=== PATIENT | female | born 1970 | race Caucasian/White ===

== ENCOUNTER 2018-01-12 12:38 | Emergency (ER) | payer OTHER, SELFPAY ==
[2018-01-12 12:40] VITALS: BP 144/99; PULSE 114; RESP 18; TEMP 36.8; O2SAT 97; BMI 27.1
--- NOTE | 2018-01-12 13:05 | RAD_ITS ---
STUDY: X-RAY CHEST REASON FOR EXAM: Female, 47 years old. Cough. TECHNIQUE: Frontal and lateral views of the chest. COMPARISON: None. FINDINGS: The lungs are clear and expanded. There is no demonstrated pleural abnormality. Normal size heart. Normal mediastinum and amita. Normal visualized pulmonary arteries. Normal visualized aortic arch and descending thoracic aorta. Normal visualized thoracic spine. Normal visualized ribs, clavicles, and shoulders. There is no demonstrated abnormality of the visualized soft tissue structures of the upper abdomen. RAD/Chest PA and Lateral IMPRESSION: No significant abnormality. Electronically Signed: Ryan Ybarra MD at 13:52 EST , Service support ,
--- NOTE | 2018-01-12 15:27 | ED.DCSUM_ITS ---
- ER Visit Summary Date of Service: 01/12/18 Chief Complaint: Cough History of Present Illness: The patient is a 47 F who presents with a cough. Initially she began with a fever congestion rhinorrhea. She has had no fever for a week. She states her cold then moved into her chest. She was initially seen in urgent care and treated with Tessalon prednisone and Tylenol. She completed these. She did not improve complains of persistent cough so was recently started on antibiotics. She denies fevers nausea vomiting diarrhea chest pain. She is not short of breath. Her primary care physician had told her that if she was not better to go to the ER to get a diagnosis. Physical Examination: Afebrile heart rate 114 vitals otherwise unremarkable respiratory rate is 18 and pulse ox is 97% on room air Patient is in no distress Airway is patent Heart is regular rhythm tachycardia Lungs are actually clear I do not appreciate rales or wheezing. Test Results: Chest x-ray shows no significant abnormality. Emergency Department Course and Treatment: Patient is clinically well- appearing. 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 No chest pain. She has had no fever for a week and her congestion and rhinorrhea are also improving. She does have a history of asthma. We will place her on a prednisone taper. She was instructed on specific signs and symptoms to monitor for, conditions under which return to the emergency department. All questions answered bedside. Patient discharged. Treatment Plan: [] Disposition: Discharge Impression: Bronchitis This note was generated with [employer] dictation software. It may contain incorrect words, spelling, and punctuation that were not noted in review of the chart prior to signing ED Disposition - Plan for ED Patient: Chief Complaint: Cough Referrals: Anupama Bates MD [Primary Care Provider] -
--- NOTE | 2018-01-12 15:27 | ED.DEP ---
ED Disposition - Plan for ED Patient: Chief Complaint: Cough Instructions: ED Bronchitis Asthmatic Prescriptions: Prednisone 10 mg PO UD #33 tab Referrals: Anupama Bates MD [Primary Care Provider] -
[2018-01-12 15:42] VITALS: BP 121/74; PULSE 82; RESP 20; TEMP 36.4; O2SAT 97
== END 2018-01-12 15:42 | disposition home or self-care (01) ==
LOC: ED 13:14
PROVIDERS: Emergency Provider Emergency Medicine; Family Provider Internal Medicine; PCP Internal Medicine
DX: J40 Bronchitis, not specified as acute or chronic (principal); G40.909 Epilepsy, unspecified, not intractable, without status epilepticus; Z79.899 Other long term (current) drug therapy
CPT/HCPCS: 71046; 99282

== ENCOUNTER → 2019-09-03 16:39 | Outpatient (CLI) | payer OTHER, SELFPAY | PROVIDERS: Family Provider Internal Medicine; PCP Internal Medicine; Referring Provider Nurse Practitioner Primary Care; Visit Provider Nurse Practitioner Primary Care | DX: R07.9 Chest pain, unspecified (principal) | CPT/HCPCS: 84484 ==

== ENCOUNTER → 2020-06-09 14:29 | Outpatient (CLI) | payer OTHER, SELFPAY ==
[2020-06-09 14:29] VITALS: BMI 26.6
--- NOTE | 2020-06-09 14:30 | RAD_ITS ---
STUDY: X-RAY - LEFT SHOULDER REASON FOR EXAM: Increasing left shoulder pain, no specific injury. TECHNIQUE: 4 view(s) of the shoulder. COMPARISON: None. FINDINGS: Normal glenohumeral articulation. Normal acromioclavicular joint. Normal acromion. Normal humeral head and visualized proximal humerus. The soft tissue structures are unremarkable. Normal visualized pulmonary apex. RAD/Shoulder min 2 Views IMPRESSION: Normal x-ray examination of the left shoulder. Electronically Signed: Herber Mccallum MD at 15:30 EDT Tel , Service support ,
== END ==
PROVIDERS: PCP Internal Medicine; Referring Provider Orthopaedic Surgery; Visit Provider Orthopaedic Surgery
DX: M25.512 Pain in left shoulder (principal)
CPT/HCPCS: 73030

== ENCOUNTER 2020-06-15 07:54 | Outpatient (RCR) | payer OTHER, SELFPAY ==
[2020-06-09 14:29] VITALS: BMI 26.6
--- NOTE | 2020-06-15 08:55 | HP.PTEVAL_ITS ---
Patient's Visit Information DEBBIE MCALLISTER is a 49 year old F referred to Physical Therapy by Dr. Aissatou Rodríguez DO with a diagnosis of LEFT SHOULDER IMPINGEMENT. Date of Evaluation: 06/15/20 Physical Therapist: Jono Mancini, PT, Cert MDT, OCS - Visit Plan Frequency: 1 VISIT Plan: PT EVALUATION - Subjective This 49 y/o female presents to physical therapy with left shoulder impingement. Patient has had left shoulder many years. Last July last year injuried lifting. In [facility] ,noticed more pain unable to see MD due to COVID. Patient seen DR dumont help shoulder pain. Patient noticed decrease strength with function and activity. Patient intilally had difficulty sleep but abld able to sleep on left side . Patient currently has pain left shoulder bicep region. Patient wants HEP only. C/O some parathesia/tingling. Patient symptoms affects ADLS ,housework tasks and function. Patient symptoms affects QOL. SOCIAL: single. 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 PALAPTION: unremarkble. NEURO: intact. MMT: RTC 4/5 ,DELTOID 4-/5,SCAPULAR 4-/5. AROM: shoulder flexion 160m,abd 170,ER 90 degrees - Special Tests R Shoulder Drop Sign - IS Test: Negative R Shoulder Empty Can - SS: Negative L Shoulder Supine Impingement Test - RC Tear: Negative L Shoulder Lift Off Test - Subscapular Tear: Negative L Shoulder Empty Can - SS: Negative L Shoulder Neer - Impingement: Positive L Shoulder Coats Edson - Impingement: Positive - Goals Goal 1:: Patient to be provided with HEP Goal Time Frame: 1VISIT - Rehabilitation Potential Physical Therapy Diagnosis: This 49 y/o female prenset with left shoulder impingement with condition resolving with need of strengthening program due to mild pain . Rehabilitation Potential: Good - Anticipated Interventions Patient/Client Instruction: Educate patient on: Condition, Plan of Care For the Purpose of:: To decrease pain, To increase ROM, To increase tolerance to activity/condition/position, To improve performance and independence with ADL's, To improve ability of physical actions for home/community/work/leisure, To improve health of tissue, To decrease soft tissue restriction, To increase flexibility/ROM Thank you for the opportunity to evaluate your patient. For Medicare and Medicare HMO plans, please review the plan of care and approve it. It will need to be FAXED BACK to us at [phone] for Medicare purposes. For Medicare only, by signing this I certify the plan of care. Please let me know if there are questions or concerns regarding this plan of care. Physician Signature: Date:
== END 2020-06-15 19:00 | disposition home or self-care (01) ==
LOC: PT 07:54
PROVIDERS: PCP Internal Medicine; Referring Provider Orthopaedic Surgery; Visit Provider Orthopaedic Surgery
DX: M75.42 Impingement syndrome of left shoulder (principal)
CPT/HCPCS: 97110; 97162

== ENCOUNTER 2021-12-17 13:51 | Emergency (ER) | payer BC, SELFPAY ==
[2021-12-17 13:52] VITALS: BP 150/98; PULSE 80; RESP 14; TEMP 37; O2SAT 100; BMI 26.9
[2021-12-17] MEDS: Ketorolac 15 MG/ML Vial IM (16:48)
[2021-12-17 16:57] VITALS: PULSE 84; RESP 17; O2SAT 100
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
== END 2021-12-17 17:06 | disposition home or self-care (01) ==
PROVIDERS: Emergency Provider Student in an Organized Health Care Education/Training Program; PCP Internal Medicine; Visit Provider Student in an Organized Health Care Education/Training Program
DX: S16.1XXA Strain of muscle, fascia and tendon at neck level, initial encounter (principal); G40.909 Epilepsy, unspecified, not intractable, without status epilepticus; S29.012A Strain of muscle and tendon of back wall of thorax, initial encounter; V89.2XXA Person injured in unspecified motor-vehicle accident, traffic, initial encounter; Y93.9 Activity, unspecified; Y92.9 Unspecified place or not applicable; J45.909 Unspecified asthma, uncomplicated; Z79.899 Other long term (current) drug therapy
CPT/HCPCS: 96372; 99282

== ENCOUNTER 2022-11-27 00:48 | Emergency (ER) | payer BC, SELFPAY ==
[2022-11-27 00:50] VITALS: BP 161/87; PULSE 100; RESP 20; TEMP 36.6; O2SAT 98; BMI 29.1
--- NOTE | 2022-11-27 01:09 | EX.ED.DYSGE1 ---
HPI History of Present Illness Chief Complaint: General Illness Detail of Chief Complaint: COVID-19 Informant: patient Narrative Narrative: Patient present secondary to COVID-19. She was exposed to COVID over the holidays. She tested herself tonight and was positive. Because she has an underlying history of asthma she had been advised by her PCP that if she ever test positive she needs to present to the emergency room immediately. Patient reports very mild cough. She does not feel as if she is wheezing. [facility] Medical History Asthma Bronchitis Seizure disorder Home Medications carbamazepine 200 mg tablet 300 mg PO BIDCM 06/22/16 [History Last Taken Unknown] cetirizine 10 mg tablet 10 mg PO DAILY 06/22/16 [History Last Taken Unknown] cholecalciferol (vitamin D3) 25 mcg (1,000 unit) tablet 2,000 unit PO DAILY 06/22/16 [History Last Taken Unknown] mometasone-formoterol HFA 200 mcg-5 mcg/actuation aerosol inhaler 13 gm IH BID 06/22/16 [History Last Taken Unknown] zonisamide 100 mg capsule 100 mg PO QHS 01/12/18 [History Last Taken Unknown] zonisamide 50 mg capsule 50 mg PO DAILY 01/12/18 [History Last Taken Unknown] montelukast 10 mg tablet (Singulair) 10 mg PO QHS 12/17/21 [History Last Taken Unknown] naproxen 500 mg tablet (Naprosyn) 500 mg PO BID PRN pain #20 tabs 12/17/21 [Rx Last Taken Unknown] tizanidine 4 mg capsule (Zanaflex) 4 mg PO Q8H PRN muscle spasticity #20 caps 12/17/21 [Rx Last Taken Unknown] Allergy/AdvReac Type Severity Reaction Status Date / Time amoxicillin Allergy Hives Verified 11/27/22 00:50 oxcarbazepine Allergy Other Verified 11/27/22 00:50 [From Trileptal] shellfish derived Allergy Anaphylaxis Verified 11/27/22 00:50 latex AdvReac Rash Verified 11/27/22 00:50 Family History Other Cancer Hypertension Rheumatoid arthritis Surgical History history of left biceps vein surgery History of sinus surgery Social History Smoking Status: Never smoker ROS ROS ED Constitutional Constitutional ED: Denies chills or fever(s) Eyes Eyes: Denies change in vision or discharge from eye(s) ENT ENT ED: Denies discharge from eye(s), rhinorrhea or sore throat Cardiovascular Cardiovascular: Denies chest pain or palpitations Respiratory/Chest Respiratory/Chest: Reports cough; Denies dyspnea Gastrointestinal Gastrointestinal: Denies abdominal pain, diarrhea, nausea or vomiting Genitourinary Genitourinary ED: Denies dysuria Musculoskeletal Musculoskeletal: Denies back pain or extremity pain Integumentary Denies Abrasions or rash Neurologic Neurologic: Denies headache(s) or weakness Psychiatric Psychiatric: Reports anxiety; Denies depression Allergic/Immunologic Allergic/Immunologic ED: Denies lip swelling or urticaria EXAM Physical Exam Const Vital Signs: 11/27/22 00:50 11/27/22 00:50 Temperature 98 F Temperature Source Temporal Pulse Rate 100 Respiratory Rate 20 H Respiratory Effort Normal Respiratory Pattern Normal Blood Pressure 161/87 H Blood Pressure Mean 111 Pulse Ox 98 Oxygen Delivery Method Room Air Positive well nourished and well developed General Appearance ED: well developed HEENT Reports normocephalic and head/scalp atraumatic Eyes PERRL and EOMs intact bilaterally Neck supple Chest Wall inspection of chest normal and palpation of chest normal Resp normal respiratory effort and clear to auscultation bilaterally Cardio regular rate and regular rhythm GI normal to inspection, nondistended, normoactive bowel sounds Palpation: soft Extremity normal to inspection Neuro oriented x3 and no sensory deficits noted Sensorium / Orientation: alert Motor Exam: strength 5/5 throughout Psych mental status grossly normal Skin no rashes or lesions noted MDM MDM MDM Narrative Medical decision making narrative: Patient's vital signs are unremarkable with a pulse ox of 98%. Lung sounds are clear. Further work-up and testing is not needed at this time. Patient states that she is on Tegretol and was told by her neurologist that she cannot take Paxlovid. I recommended she contact her PCP in the morning to see if they can arrange antibody infusion as she is quite concerned about her asthma getting worse. I advised her to get a pulse oximeter and monitor her oxygen levels. Return instructions are given. Discharge Plan Triage Chief Complaint: General Illness ED Provider: Trina Varner Dx/Rx/DC Orders Clinical Impression: COVID-19 Instructions: Coronavirus Disease 2019 (COVID-19): Overview, Coronavirus Disease 2019 (COVID-19): Caring for Yourself or Others Prescriptions: No Action cetirizine 10 MG tablet 10 mg PO DAILY carbamazepine 200 MG tablet 300 mg PO BIDCM cholecalciferol (vitamin D3) 1,000 UNIT tablet 2,000 unit PO DAILY mometasone-formoterol 8.8 GM HFA aerosol inhaler 13 gm IH BID zonisamide 100 MG capsule 100 mg PO QHS zonisamide 50 MG capsule 50 mg PO DAILY montelukast [Singulair] 10 mg Tablet 10 mg PO QHS tizanidine [Zanaflex] 4 mg capsule 4 mg PO Q8H PRN (Reason: muscle spasticity) Qty: 20 0RF naproxen [Naprosyn] 500 mg tablet 500 mg PO BID PRN (Reason: pain) Qty: 20 0RF Primary Care Provider: Anupama Bates Referrals: Anupama Bates MD [Primary Care Provider] - As soon as possible Activity Restrictions/Additional Instructions: Call Dr. Bates' office in the morning. Ask if they can help arrange antibody infusion for you for COVID-19 treatment. Disposition Disposition: Home, Self Care
== END 2022-11-27 01:31 | disposition home or self-care (01) ==
PROVIDERS: Emergency Provider Emergency Medicine; PCP Internal Medicine; Visit Provider Emergency Medicine
DX: U07.1 COVID-19 (principal)
CPT/HCPCS: 99282

== ENCOUNTER 2023-01-29 07:30 | Outpatient (RCR) | payer BC, SELFPAY ==
--- NOTE | 2022-07-12 07:55 | HP.PTEVAL ---
Patient's Visit Information DEBBIE MCALLISTER is a 51 year old F referred to Physical Therapy by GUILLERMINA LAWLER with a diagnosis of Right Knee Arthroscopy Medial Meniscal Debridement. Date of Evaluation: 07/12/22 Physical Therapist: Yulisa Motley DPT - Visit Plan Frequency: 2-3x /Week Duration: 4 Weeks Plan: Focus on LE and Core strength/stabilization- HEP for gym program. HEP Given IE: Quad Set, SLR, Hamstring Stretch, Heel Slide - Subjective Patient reports that she had a right knee scope June 29, 2022. She was having knee pain in November- January she went to see Dr. 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 She has been wearing braces- also avoiding doing squats. She did PT up at the [facility] for a month- nothing helped- continued to get worse. She then went to [place] in April- she is in [place] for 6 weeks. 2nd day in the field she took a step and could not bend it. Had a cortisone injection- and he sent her back for a torn meniscus. Went back to Dr. Rodriguez when she got home- MRI- then he performed surgery. She was told not to do any exercises only walking until she came to PT. Prior to yesterday she feels that she has been stagnant since last Saturday. She reports that it feels that she has cotton between the knees. The knee feels a little unstable and wants to hyperextend. Worst: 7-8/10 stabbing pains. Agg: twisting and rolling over in bed. Best: 3-4/10 Eases: Ice, elevation and rest. Pain is located in the medial portion of the medial joint line- and soreness in along the back. Most of the time dull achy pains but every once in awhile she has a knife pain. Sleep: no problems- just wakes her up if she turns- pillow between the knees. 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 PMHx: asthma, allergies, seizure disorder (Epilepsy)- more like dizzy spells- last one was age 18- maintained meds. Meds: Teratol x1L, zonogram. - Objective Posture: FH, RS- can correct with verbal cues but does not maintain. Observation: incision healing well- steri-strips intact- moderate bruising down the parikh. Stairs: asc/desc 8 recip with 2 HR- poor control with descent and reports discomfort. HR/TR: able without pain. SLS: 10 sec increased sway and reports instability. Sit to Stand: no UE A- mild weight shift to the left. Palpation: not tender to touch. ROM: 0-110 degrees. Strength: Core: fair minus, Hip: 4+/5, Knee: 4+/5, Ankle: 5/5. Flex:HS: severe, Gastroc: moderate - Balance/Special Test Scores Lower Extremity Functional Score: 38 - Goals Goal 1:: Patient will be I with HEP and progression Goal Time Frame: 4-6 Weeks Goal 2:: Patient will asc/desc 8 stairs recip with no HR and good control Goal Time Frame: 4-6 Weeks Goal 3:: Patient will report 80% improvement Goal Time Frame: 4-6 Weeks - Rehabilitation Potential Physical Therapy Diagnosis: Patient presents with hypomobility- she has decreased painfree ROM, LE and core strength/stabilization, proprioception, flex and muscular endurance s/p right knee scope leading to increased pain with ADL's. Rehabilitation Potential: Good - Anticipated Interventions Patient/Client Instruction: Educate patient on: Benefits of Fitness Program Therapeutic Exercise to Include: Strength training, Endurance training, Balance training, Coordination, Agility training, Body mechanics, Postural training, Flexibilty training, Gait and locomotor training, Neuromotor development, Dynamic Lumbar Stabilization, Scapular Strength/Stabilization For the Purpose of:: To improve muscle performance and motor function TENS: Yes Cryotherapy (ice pack, ice massage): Yes Thermo therapy (hot pack): Yes Ultrasound (thermal/non thermal): Yes Vasopneumatic device: Yes Thank you for the opportunity to evaluate your patient. For Medicare and Medicare HMO plans, please review the plan of care and approve it. It will need to be FAXED BACK to us at [phone] for Medicare purposes. For Medicare only, by signing this I certify the plan of care. Please let me know if there are questions or concerns regarding this plan of care. Physician Signature: Date:
--- NOTE | 2022-10-16 08:54 | HP.PTREVAL_ITS ---
GUILLERMINA LAWLER, It has been my pleasure to treat DEBBIE MCALLISTER over the last 15 visits for Right Knee Arthroscopy Medial Meniscal Debridement. Please see the progress note below for an update on the physical therapy plan of care! Subjective: She is also having neck issues and serratus issues. Patient reports that she feels that she is 50-60% better in her knee. She stood up yesterday and took a step with it and it buckled under her. She has also noticed that her parikh is really sore- she is having issues with extension. She does not have an apt to go back and see the MD. Now the left knee is starting to bother her. Occasionally she has soreness in the medial knee. Sleep: sometimes it will wake her up if she is turning. She has had in injection but was not put on an anti- inflammatory. Objective/Function: Posture: FH, RS- can correct with verbal cues but does not maintain. Stairs: asc/desc 8 recip with 2 HR- fair control with descent and reports discomfort with ascending HR/TR: able without pain. SLS: 15 sec increased sway and reports instability right>left. Sit to Stand: no UE A- mild weight shift to the left. ROM: 0-120 degrees. Strength: Core: fair minus, Hip: 4+/5, Knee: Left: Extn: 71, 76 Right: 38, 40. Left Flexion: 48, 52 Right: 26, 30, Ankle: 5/5. Flex:HS: mod, Gastroc: moderate Plan Plan: 10/16/22: Continue aquatics 2x4 and perform I land program 2x a week. 09/06/22: Aquatic PT- 2x a week for 3 weeks. 08/09: 4 week HEP then FU. Focus on LE and Core strength/stabilization- HEP for gym program. Balance/Gait/Functional tests - Balance/Special Test Scores Lower Extremity Functional Score: 51 Goals Goal 1:: Patient will be I with HEP and progression Goal Time Frame: 4-6 Weeks Goal Progress: Progressing Goal 2:: Patient will asc/desc 8 stairs recip with no HR and good control Goal Time Frame: 4-6 Weeks Goal Progress: Progressing Goal 3:: Patient will report 80% improvement Goal Time Frame: 4-6 Weeks Goal Progress: Progressing Anticipated Interventions Patient/Client Instruction: Educate patient on: Benefits of Fitness Program Therapeutic Exercise to Include: Strength training, Endurance training, Balance training, Coordination, Agility training, Body mechanics, Postural training, Flexibilty training, Gait and locomotor training, Neuromotor development, Dynami c Lumbar Stabilization, Scapular Strength/Stabilization For the Purpose of:: To improve muscle performance and motor function TENS: Yes Cryotherapy (ice pack, ice massage): Yes Thermo therapy (hot pack): Yes Ultrasound (thermal/non thermal): Yes Vasopneumatic device: Yes Please do not hesitate to contact me at [phone] by phone or if you have questions or concerns regarding this new plan of care! Sincerely, YAO ChangT
--- NOTE | 2022-12-10 14:57 | HP.PTEVAL_ITS ---
Patient's Visit Information DEBBIE MCALLISTER is a 52 year old F referred to Physical Therapy by GUILLERMINA LAWLER with a diagnosis of Right Knee Arthroscopy Medial Meniscal Debridement. Date of Evaluation: 07/12/22 Physical Therapist: ANDIE Santoro - Visit Plan Frequency: 2-3x /Week Duration: 4 Weeks Plan: 10/16/22: Continue aquatics 2x4 and perform I land program 2x a week. 09/06/22: Aquatic PT- 2x a week for 3 weeks. 08/09: 4 week HEP then FU. Focus on LE and Core strength/stabilization- HEP for gym program. - Subjective Patient reports that she had a right knee scope June 29, 2022. She was having knee pain in November- January she went to see Dr. 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 She has been wearing braces- also avoiding doing squats. She did PT up at the [facility] for a month- nothing helped- continued to get worse. She then went to [place] in April- she is in [place] for 6 weeks. 2nd day in the field she took a step and could not bend it. Had a cortisone injection- and he sent her back for a torn meniscus. Went back to Dr. Rodriguez when she got home- MRI- then he performed surgery. She was told not to do any exercises only walking until she came to PT. Prior to yesterday she feels that she has been stagnant since last Saturday. She reports that it feels that she has cotton between the knees. The knee feels a little unstable and wants to hyperextend. Worst: 7-8/10 stabbing pains. Agg: twisting and rolling over in bed. Best: 3-4/10 Eases: Ice, elevation and rest. Pain is located in the medial portion of the medial joint line- and soreness in along the back. Most of the time dull achy pains but every once in awhile she has a knife pain. Sleep: no problems- just wakes her up if she turns- pillow between the knees. 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 PMHx: asthma, allergies, seizure disorder (Epilepsy)- more like dizzy spells- last one was age 18- maintained meds. Meds: Teratol x1L, zonogram. - Pain Right Knee Pain Intensity (Out of 10): Unrated - Objective Posture: FH, RS- can correct with verbal cues but does not maintain. Observation: incision healing well- steri-strips intact- moderate bruising down the parikh. Stairs: asc/desc 8 recip with 2 HR- poor control with descent and reports discomfort. HR/TR: able without pain. SLS: 10 sec increased sway and reports instability. Sit to Stand: no UE A- mild weight shift to the left. Palpation: not tender to touch. ROM: 0-110 degrees. Strength: Core: fair minus, Hip: 4+/5, Knee: 4+/5, Ankle: 5/5. Flex:HS: severe, Gastroc: moderate - Balance/Special Test Scores Oswestry Low Back Score: 28 Lower Extremity Functional Score: 51 - Goals Goal 1:: Patient will be I with HEP and progression Goal Time Frame: 4-6 Weeks Goal 2:: Patient will asc/desc 8 stairs recip with no HR and good control Goal Time Frame: 4-6 Weeks Goal 3:: Patient will report 80% improvement Goal Time Frame: 4-6 Weeks - Rehabilitation Potential Physical Therapy Diagnosis: Patient presents with hypomobility- she has decreased painfree ROM, LE and core strength/stabilization, proprioception, flex and muscular endurance s/p right knee scope leading to increased pain with ADL's. Rehabilitation Potential: Good - Anticipated Interventions Patient/Client Instruction: Educate patient on: Benefits of Fitness Program Therapeutic Exercise to Include: Strength training, Endurance training, Balance training, Coordination, Agility training, Body mechanics, Postural training, Flexibilty training, Gait and locomotor training, Neuromotor development, Dynamic Lumbar Stabilization, Scapular Strength/Stabilization For the Purpose of:: To improve muscle performance and motor function TENS: Yes Cryotherapy (ice pack, ice massage): Yes Thermo therapy (hot pack): Yes Ultrasound (thermal/non thermal): Yes Vasopneumatic device: Yes Thank you for the opportunity to evaluate your patient. For Medicare and Medicare HMO plans, please review the plan of care and approve it. It will need to be FAXED BACK to us at [phone] for Medicare purposes. For Medicare only, by signing this I certify the plan of care. Please let me know if there are questions or concerns regarding this plan of care. Physician Signature: ___Date:
--- NOTE | 2022-12-20 08:34 | HP.PTDCSUM ---
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 Discharge Date: Please see the following information for a summary of their discharge status. Subjective: Patient reports that the knee is not buckling as much. She has been less active since she got COVID over [place]. She is also having issues with her back and is having therapy. She is not having pain in the knee she classifies it as a soreness. Every once in awhile she will get a jab. Left Hip Pain Intensity (Out of 10): 4 Right Knee Pain Intensity (Out of 10): 0 % Improvement: 75 Objective/Function: Posture: good throughout tx session in sitting and stamnding. Stairs: asc/desc 8 recip no hand rail or deviation noted- pt did report some soreness with descent HR/TR: able without pain. SLS: 15 sec no loss of balance Sit to Stand: no UE A ROM: 0-120 degrees. Strength: Core: fair plus, Hip: 4+/5, Knee: Right Extn: 50/55 Right Flexion: 45/47 Ankle: 5/5. Flex:HS: mod, Gastroc: moderate. 80% strength ratio Goal 1:: Patient will be I with HEP and progression Goal Progress: Goal Met Goal 2:: Patient will asc/desc 8 stairs recip with no HR and good control Goal Progress: Goal Met Goal 3:: Patient will report 80% improvement Goal Progress: Progressing Plan: 12/20/22: Pt is indep with both land and aquatic ex program for her knee- appropriate to d/c at this time- encouraged her to stop in or call if questions or concerns. 10/16/22: Continue aquatics 2x4 and perform I land program 2x a week. 09/06/22: Aquatic PT- 2x a week for 3 weeks. 08/09: 4 week HEP then FU. Focus on LE and Core strength/stabilization- HEP for gym program. If there are questions or concerns regarding this patient's physical therapy, please feel free to call me at [phone]. Thank you for the referral of this patient. Sincerely, Yulisa Motley, DPT Balance/Gait/Functional tests - Balance/Special Test Scores Oswestry Low Back Score: 28 Lower Extremity Functional Score: 60
--- NOTE | 2023-01-29 08:12 | HP.PTDCSUM ---
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 Discharge Date: Please see the following information for a summary of their discharge status. Subjective: Patient reports that the knee is not buckling as much. She has been less active since she got COVID over [place]. She is also having issues with her back and is having therapy. She is not having pain in the knee she classifies it as a soreness. Every once in awhile she will get a jab. Left Hip Pain Intensity (Out of 10): 4 Right Knee Pain Intensity (Out of 10): 0 % Improvement: 75 Objective/Function: Posture: good throughout tx session in sitting and stamnding. Stairs: asc/desc 8 recip no hand rail or deviation noted- pt did report some soreness with descent HR/TR: able without pain. SLS: 15 sec no loss of balance Sit to Stand: no UE A ROM: 0-120 degrees. Strength: Core: fair plus, Hip: 4+/5, Knee: Right Extn: 50/55 Right Flexion: 45/47 Ankle: 5/5. Flex:HS: mod, Gastroc: moderate. 80% strength ratio Goal 1:: Patient will be I with HEP and progression Goal Progress: Goal Met Goal 2:: Patient will asc/desc 8 stairs recip with no HR and good control Goal Progress: Goal Met Goal 3:: Patient will report 80% improvement Goal Progress: Progressing Plan: 12/20/22: Pt is indep with both land and aquatic ex program for her knee- appropriate to d/c at this time- encouraged her to stop in or call if questions or concerns. 10/16/22: Continue aquatics 2x4 and perform I land program 2x a week. 09/06/22: Aquatic PT- 2x a week for 3 weeks. 08/09: 4 week HEP then FU. Focus on LE and Core strength/stabilization- HEP for gym program. If there are questions or concerns regarding this patient's physical therapy, please feel free to call me at [phone]. Thank you for the referral of this patient. Sincerely, Leila Caro, MPT Balance/Gait/Functional tests - Balance/Special Test Scores Oswestry Low Back Score: 0 Lower Extremity Functional Score: 60
== END 2023-01-29 14:44 | disposition home or self-care (01) ==
LOC: PT 07:30
PROVIDERS: PCP Internal Medicine
DX: S83.231D Complex tear of medial meniscus, current injury, right knee, subsequent encounter (principal)
CPT/HCPCS: 97014; 97035; 97110; 97113; 97161; 97162; 97164; 97530; G0283

== ENCOUNTER → 2023-01-31 | Outpatient (CLI) | payer BC, SELFPAY | END | disposition home or self-care (01) | LOC: LABSPEC 15:15 | PROVIDERS: PCP Internal Medicine; Visit Provider Otolaryngology | DX: J32.9 Chronic sinusitis, unspecified (principal) | CPT/HCPCS: 87070; 87205 ==

== ENCOUNTER → 2023-08-01 | Outpatient (CLI) | payer BC, SELFPAY ==
--- NOTE | 2023-08-01 14:15 | US_ITS ---
STUDY: ULTRASOUND BREAST - RIGHT REASON FOR EXAM: Female, 53 years old. Right axillary palpable lump. TECHNIQUE: Axial and longitudinal images of the RIGHT breast were performed with a high resolution ultrasound transducer. # OF IMAGES: 9 COMPARISON: Comparison is made with prior mammogram done earlier in the day. FINDINGS: RIGHT Breast: The axillary region of the right breast was examined. No sonographic abnormality is seen. US/Breast Limited Unilateral IMPRESSION: No sonographic abnormality is seen. ASSESSMENT CATEGORY: BIRADS Category 1: Negative. A letter regarding these results will be sent to the patient by the facility within 30 days. Electronically Signed: Henry Gottlieb MD at 15:37 EDT ,
--- NOTE | 2023-08-01 14:15 | BI_ITS ---
MAMMOGRAPHY - UNILATERAL DIAGNOSTIC: RIGHT BREAST REASON FOR EXAM: Female, 53 years old. Two-week history of a right axillary lump. PERTINENT HISTORY: Grandmother with breast cancer. TECHNIQUE: Digital unilateral breast jacques (3D mammographic acquisition) in the CC and MLO projections. 2-D mediolateral oblique (MLO) and craniocaudad (CC) views of both breasts were obtained. CAD: Full Field Digital Mammography with Computer Added Detection was performed. COMPARISON: Comparison is made with prior examination dated January 10, 2003. FINDINGS: Breast Composition: The breasts are extremely dense, which lowers the sensitivity of mammography. There are no dominant masses or suspicious calcifications. Lymph nodes are seen in the right axillary region. Correlation with the ultrasound of the axilla is recommended for further evaluation. No other significant abnormalities are identified. BI/DIAG MAMM W/CAD, UNILAT IMPRESSION: Prominent fat containing lymph nodes are seen in the right axilla. Correlation with ultrasound is recommended. ASSESSMENT CATEGORY: BIRADS Category 0: Incomplete. Need additional imaging evaluation. A letter regarding these results will be sent to the patient by the facility within 30 days. Approximately 10% of breast cancers are not detected by mammography. A normal mammogram should not delay biopsy of a clinically suspicious abnormality. Electronically Signed: Henry Gottlieb MD at 15:08 EDT ,
== END | disposition home or self-care (01) ==
LOC: OPBI 14:13
PROVIDERS: PCP Internal Medicine; Referring Provider Clinical Nurse Specialist; Visit Provider Clinical Nurse Specialist
DX: R22.31 Localized swelling, mass and lump, right upper limb (principal)
CPT/HCPCS: 76642; 77061; 77065; G0279

== ENCOUNTER 2023-10-12 13:18 | Emergency (ER) | payer BC, SELFPAY ==
[2023-10-12 13:19] VITALS: BP 134/76; PULSE 64; RESP 14; TEMP 36.4; O2SAT 98; BMI 25.5
--- NOTE | 2023-10-12 13:42 | EDS_ITS ---
HPI History of Present Illness Chief Complaint: Wound Informant: patient Narrative Narrative: Patient presents secondary to right lower extremity wound. She had a calcification in her skin that was removed by dermatology almost 2 weeks ago. She states the first week everything was healing well. This past week the area has been swelling and feeling with fluid and then shooting initially green- colored fluid and now clear fluid from the wound. She states some of the stitches popped because of the pressure. She was seen by dermatology yesterday and they removed the rest of the stitches and she was told it would heal. Patient presents stating it still leaks fluid and was not sure if a different treatment was needed. [facility] Medical History Asthma Bronchitis Seizure disorder Home Medications carbamazepine 200 mg tablet 300 mg PO BIDCM 06/22/16 [History Last Taken U nknown] cetirizine 10 mg tablet 10 mg PO DAILY 06/22/16 [History Last Taken Unknown] cholecalciferol (vitamin D3) 25 mcg (1,000 unit) tablet 2,000 unit PO DAILY 06/22/16 [History Last Taken Unknown] mometasone-formoterol HFA 200 mcg-5 mcg/actuation aerosol inhaler 13 g IH BID 06/22/16 [History Last Taken Unknown] zonisamide 100 mg capsule 100 mg PO QHS 01/12/18 [History Last Taken Unknown] zonisamide 50 mg capsule 50 mg PO DAILY 01/12/18 [History Last Taken Unknown] montelukast 10 mg tablet (Singulair) 10 mg PO QHS 12/17/21 [History Last Taken Unknown] Allergy/AdvReac Type Severity Reaction Status Date / Time amoxicillin Allergy Hives Verified 10/12/23 13:22 oxcarbazepine Allergy Other Verified 10/12/23 13:22 [From Trileptal] shellfish derived Allergy Anaphylaxis Verified 10/12/23 13:22 latex AdvReac Rash Verified 10/12/23 13:22 Family History Other Cancer Hypertension Rheumatoid arthritis Surgical History history of left biceps vein surgery History of sinus surgery Social History Smoking Status: Never smoker ROS ROS ED Constitutional Constitutional ED: Denies chills or fever(s) Cardiovascular Cardiovascular: Denies chest pain Respiratory/Chest Respiratory/Chest: Denies cough or dyspnea Gastrointestinal Gastrointestinal: Denies abdominal pain Integumentary Reports other Details: Right lower extremity wound Psychiatric Psychiatric: Denies anxiety or depression Allergic/Immunologic Allergic/Immunologic ED: Denies mouth swelling or urticaria EXAM Physical Exam Const Vital Signs: 10/12/23 13:19 Temperature 97.6 F L Temperature Source Temporal Pulse Rate 64 Respiratory Rate 14 Blood Pressure 134/76 H Blood Pressure Mean 95 Pulse Ox 98 Oxygen Delivery Method Room Air Positive well nourished and well developed General Appearance ED: well developed HEENT Reports moist mucous membranes Eyes EOMs intact bilaterally Chest Wall inspection of chest normal Resp normal respiratory effort Extremity Extremity Narrative: 2 cm vertical healing laceration over the right lower parikh. No significant surrounding erythema. With palpation I do not feel any fluid pockets, however I am able to get some serosanguineous drainage. Neuro oriented x3 and no sensory deficits noted Motor Exam: strength 5/5 throughout MDM MDM MDM Narrative Medical decision making narrative: Small mount of fluid was expelled from the wound. Pressure dressing is placed over the wound so that the pocket cannot fill back up with fluid. This should allow for secondary intention. Wound care discussed with patient she is comfortable with the plan. Discharge Plan Triage Chief Complaint: Wound ED Provider: Trina Varner Dx/Rx/DC Orders Clinical Impression: Visit for wound check Instructions: ED Wound Check (No Infection) Prescriptions: No Action cetirizine 10 MG tablet 10 mg PO DAILY carbamazepine 200 MG tablet 300 mg PO BIDCM cholecalciferol (vitamin D3) 1,000 UNIT tablet 2,000 unit PO DAILY mometasone-formoterol 8.8 GM HFA aerosol inhaler 13 g IH BID zonisamide 100 MG capsule 100 mg PO QHS zonisamide 50 MG capsule 50 mg PO DAILY montelukast [Singulair] 10 mg Tablet 10 mg PO QHS Primary Care Provider: Anupama Bates Referrals: Miranda Zapata MD [Non-Staff] - As Needed Anupama Bates MD [Primary Care Provider] - Disposition Disposition: Home, Self Care
== END 2023-10-12 14:01 | disposition home or self-care (01) ==
LOC: ED 13:57
PROVIDERS: Emergency Provider Emergency Medicine; PCP Internal Medicine; Visit Provider Emergency Medicine
DX: Z51.89 Encounter for other specified aftercare (principal)
CPT/HCPCS: 99282

== ENCOUNTER → 2023-10-15 | Outpatient (CLI) | payer BC, SELFPAY | END | disposition home or self-care (01) | PROVIDERS: PCP Internal Medicine; Visit Provider Podiatrist Foot & Ankle Surgery | DX: L02.415 Cutaneous abscess of right lower limb (principal); L97.912 Non-pressure chronic ulcer of unspecified part of right lower leg with fat layer exposed | CPT/HCPCS: 87070; 87075; 87077; 87101; 87186; 87205 ==

== ENCOUNTER 2023-11-05 12:03 | Day surgery (SDC) | payer BC, SELFPAY ==
[2023-11-01 16:23] LABS: Magnesium 2.1 mg/dL (1.6-2.6)
[2023-11-05] VITALS (7 sets, daily range): BP systolic 125–139; BP diastolic 75–89; PULSE 75–87; RESP 16–17; TEMP 36.1–37.3; O2SAT 100; BMI 26.2
[2023-11-05 12:53] LABS: Bedside Glucose 100 mg/dL (74-106)
[2023-11-05] MEDS: Magnesium 1 GM over 15 mins IV (12:53)
[2023-11-05] MEDS: Lactated Ringers 1,000 ML 15 ML IV (12:54)
--- NOTE | 2023-11-05 13:27 | OP.PCM_ITS ---
Problems Associated Problem List Diagnoses (1) Laceration of muscle(s) and tendon(s) of anterior muscle group at lower leg level, right leg, initial encounter: (2) Disruption of external operation (surgical) wound, not elsewhere classified, initial encounter: Report of Operation Date of Procedure: 11/05/23 Pre-Operative Diagnosis: 1. Laceration to the anterior tibialis tendon, right lower extremity 2. Disruption of surgical site, right lower extremity Post-Operative Diagnosis: 1. Disruption of surgical site, right lower extremity Surgery/Procedure Performed:: 1. Repair of lacerated tendon, tibialis anterior, right lower extremity 2. Delayed primary closure of disruption of the surgical site, right lower extremity Description of Surgical Findings:: 1. After the full-thickness vision over the right anterior leg there showed no evidence of violation of the deep fascia nor violation of the anterior tibialis tendon sheath. 2. Evidence of deep old folliculitis that was most likely the cause of increase fluid drainage to the right anterior leg. 3. Complete removal of the folliculitis with tissue sent to pathology 4. Complete closure of the right leg surgical wound dehiscence via delayed primary closure. Surgeon: Rik Carlisle warehouse loader: None Type of Anesthesia: General and Local Anesthesiologist: Gary Garay Special Medications: None Specimen's removed: None Drains: None Estimated Blood Loss (mL): 5 mL Fluids Replaced: Per anesthesia Description of Procedure: Indications For Operation: Ms Morales is a 53-year-old female who was admitted to [facility] for elective surgery consisting of possible repair of extensor tendon/anterior tibialis tendon secondary to iatrogenic laceration after removing epidermal cyst by outside provider as well as with delayed primary closure of the external wound site dehiscence to the right lower extremity. Patient has been seen in the office many times for excisional debridement and wound care as well as exhausting 2 rounds of oral antibiotics. Patient has shown great improvement after antibiotics but however shows evidence of clear serous drainage to the ulceration site. The patient's drainage has improved with nonweightbearing however as she continues to weight-bear and work there shows evidence of increased drainage to the ulceration site of the right lower extremity. Patient had formal surgical consultation in office prior to surgery today. Due to nature of the chronicity of the wound as well as increased drainage it had been necessary at this time to take the patient to the operating room and to perform the procedure as written above to help decrease her drainage and improve her constant pain.. The nature of the problem, anticipated procedures, postop recovery/convalences and risk/complications include but not limited to infection, wound healing complications, hypertrophic scarring, numbness, ting ling, chronic pain, CRPS, over and under correction, recurrence of deformity, DVT and or PE and the need for further surgery have been discussed in great detail with the patient. All questions have been answered to the patient's satisfaction. There are no guarantees given as to the outcome of the procedure. Under mild sedation, the patient was brought into the operating room and placed on the operating table in supine position. Once the patient was under general anesthesia with laryngeal mask airway, the right lower extremity was blocked using approximately 20 cc 0.5% Marcaine plain. Next, a well-padded thigh tourniquet was applied to the right lower extremity. Next, the right lower extremity was prepped and draped in normal aseptic manner. Next, a timeout was then undertaken verifying the correct patient, extremity, visibility of preoperative markings, availability of the equipment. Next, attention was directed to the right lower extremity, using a 4 inch Esmarch the right lower extremity was exsanguinated and elevated to 60 degrees for 1 minute and the right thigh tourniquet was inflated to 275 mmHg. Using a sterile skin marker the incision was marked out over the full-thickness ulceration right anterior leg. Using a #15 blade a full-thickness incision down to subcutaneous tissue was performed in approximately 4 cm in length. Continued blunt dissection was carried down to the deep fascia of the anterior right leg. At this time and after exposure of the deep fascia there showed no evidence of violation of the deep fascia nor exposure of the anterior tibialis tendon sheath. The incision was was explored and showed evidence of old folliculitis from the previous of surgery. The old tissue was removed and sent to the back table to be sent off for pathology evaluation. The skin edges of the surgical site wound dehiscence were remodeled. The incision was flushed with copious sandra of warm normal saline. Right BioSkin 2 x 4 cm was applied to the incisio n to hand spring repairer helper in healing and decrease adhesions. The deep layer was closed with 3-0 Vicryl in buried suture technique. This could be changed later was closed with 3-0 nylon in running suture technique. At this time the right thigh tourniquet was deflated after 12 minutes of inflation and reperfusion was noted to the right lower extremity. The skin was closed and reapproximated using 3-0 nylon in simple interrupted suture technique. An additional 10 cc of 0.5% Marcaine plain was administered proximal to the incision in V-block fashion. The right lower extremities were cleaned and patted dry. The right lower extremity incision was dressed with bacitracin, Adaptic, dry sterile dressing and a single layer Sanders compression bandage was placed. The patient tolerated the procedure and anesthesia well and apparent satisfactory condition and was transported to the PACU for further monitoring prior to discharge home. Vital signs stable and vascular status intact to all digits bilateral. Post Operative Plan: Weightbearing: Patient is to be partial weightbearing in cam boot to the right lower extremity with crutches. Full weightbearing to left lower extremity. Antibiotics: 900 mg clindamycin through the IV DVT Prophylaxis: Aspirin 81 mg twice daily Palacios: None Dressing: Betadine soaked Adaptic, dry sterile dressing single layer Sanders compression bandage X-Rays: Not needed Pain Medication: Percocet 5/325, Flexeril 10 mg 3 times daily Follow-up: Patient is to follow-up in private office with Dr. Carlisle 1 week postop. Grafts/Implants Used: [employer] (formerly [employer]) BioSkin 2 x 4 cm graft Complications None Admit VTE Documentation VTE Present on Admission: Yes VTE Mechan Device Prophylaxis: SCD's VTE Pharm Prophylaxis ordered?: Yes
[2023-11-05] MEDS: Clindamycin 900 MG/50 ML BAG 75 MG IV (13:39)
--- NOTE | 2023-11-05 13:45 | SOF_PTH ---
PATIENT: DEBBIE MCALLISTER LOC: [facility] [place] U#:[id number] AGE/SX: 53/F ROOM: RE11/05/[address]: Dr. Rik Carlisle DPM : 1970 BED: DIS: 11/05/2023 SPEC #: [id number] RECD: 11/06/23 08:02 STATUS: KIKI LAST #: [id number] LAURA: 11/05/23 13:[address]: Rik Carlisle DEPT: SURGICAL PATHOLOGY RECD BY: Dulce Griffin ENTERED: 11/06/23 08:03 SP TYPE: SOFT TISS OTHR DR: Dr. Anupama Bates MD Tissues: Soft tissues, NOS Procedures: Surgery Specimen Level IV HEADER OPERATION: Delayed primary closure of right foot PRE-OP DIAGNOSIS: Infection with pseudomonas TISSUE SUBMITTED: Soft tissue right leg MICROSCOPIC DIAGNOSIS Soft tissue of right leg, biopsy: Skin and soft tissue with focal ulceration, granulation, fat necrosis and dystrophic microcalcifications. AM:pako 11/07/2023 MICROSCOPIC DESCRIPTION Slides are reviewed. GROSS DESCRIPTION Received in fixative is one container labeled with the patient's name and designated soft tissue right leg. The specimen consists of four irregular fragments of light gonzalez-white soft tissue that in aggregate measure 2.2 x 1.2 x 0.2 cm. The specimen is totally submitted in one cassette. / AM:pako 11/06/2023 TC:3 CPT: 61454
[2023-11-05] MEDS: Bupivacaine Mpf 0.5% 30 ML VIAL (13:50)
[2023-11-05] MEDS: Bacitracin 500 UNITS/GM PACKET (14:18)
--- NOTE | 2023-11-05 15:02 | SUR.PHASEI ---
PATIENT TO WEAR BOOT AAT FOR THE FIRST WEEK PER DR. OTT.
== END 2023-11-05 16:05 | disposition home or self-care (01) ==
LOC: SDC 12:03 → AC 12:03
PROVIDERS: PCP Internal Medicine; Referring Provider Podiatrist Foot & Ankle Surgery; Visit Provider Podiatrist Foot & Ankle Surgery
PROC: (CPT 27665; principal; 2023-11-05 13:30)
DX: S86.221A Laceration of muscle(s) and tendon(s) of anterior muscle group at lower leg level, right leg, initial encounter (principal); G40.909 Epilepsy, unspecified, not intractable, without status epilepticus; T81.31XA Disruption of external operation (surgical) wound, not elsewhere classified, initial encounter; J45.909 Unspecified asthma, uncomplicated; K21.9 Gastro-esophageal reflux disease without esophagitis; Z79.899 Other long term (current) drug therapy; X58.XXXA Exposure to other specified factors, initial encounter
CPT/HCPCS: 27665; 13160; 01470; 36415; 82962; 83735; 87081; 88305; J7120; J2405; J3475

== ENCOUNTER 2023-12-07 20:44 | Emergency (ER) | payer BC, SELFPAY ==
[2023-12-07 20:45] VITALS: BP 158/77; PULSE 105; RESP 22; TEMP 35.6; O2SAT 100; BMI 27.1
--- NOTE | 2023-12-07 20:56 | ED.VIS.DYS ---
HPI History of Present Illness Chief Complaint: Shortness of Breath Narrative Narrative: 53-year-old female past medical history of asthma, epilepsy, presents with cough and increased difficulty breathing today. Yesterday, she was performing physical activity because she was moving, and was short of breath. She states today she is tested for COVID-19, and there was a faint line . She was more short of breath today. She is coughing more, and has a dry cough to the point where she gets posttussive emesis. She states last time she had COVID in 2021, they did not give her Paxlovid because it interacts with Tegretol. Additionally, that was the last time that she had a steroid burst for her asthma as well. [facility] Medical History Arthritis Asthma Back pain Bronchitis Gastric reflux History of echocardiogram History of edema History of hiatal hernia History of pain when walking Hoarseness Injury of head and neck Low iron Non-smoker Open wound Post-menopausal Seizure disorder Wears contact lenses Wears hearing aid Home Medications carbamazepine 200 mg tablet 300 mg PO BIDCM 06/22/16 [History Last Taken Unknown] cetirizine 10 mg tablet 10 mg PO DAILY 06/22/16 [History Last Taken 11/04/23] cholecalciferol (vitamin D3) 25 mcg (1,000 unit) tablet 2,000 unit PO DAILY 06/22/16 [History Last Taken 11/04/23] mometasone-formoterol HFA 200 mcg-5 mcg/actuation aerosol inhaler 2 inh inhalation BID 06/22/16 [History Last Taken Unknown] zonisamide 100 mg capsule 100 mg PO QHS 01/12/18 [History Last Taken 11/04/23] zonisamide 50 mg capsule 50 mg PO DAILY 01/12/18 [History Last Taken Unknown] montelukast 10 mg tablet (Singulair) 10 mg PO QHS 12/17/21 [History Last Taken 11/04/23] albuterol 90 mcg/actuation aerosol inhaler 90 mcg inhalation PRN PRN SOB 11/01/23 [History Last Taken Unknown] ciprofloxacin HCl 750 mg tablet 750 mg PO BID 11/01/23 [History Last Taken Unknown] epinephrine 0.3 mg/0.3 mL injection, auto-injector 0.3 mg subcut PRN PRN hypersensitivity reaction 11/01/23 [History Last Taken Unknown] pantoprazole 40 mg tablet,delayed release 40 mg PO PRN PRN GERD 11/01/23 [History Last Taken Unknown] ascorbic acid (vitamin C) 1,000 mg tablet (Vitamin C) 1 g PO DAILY 90 days #90 tabs 11/05/23 [Rx Last Taken Unknown] calcium carbonate 500 mg-vitamin D3 15 mcg (600 unit) tablet (Os-Toni 500 + D3) 1 tab PO DAILY 90 days #90 tabs 11/05/23 [Rx Last Taken Unknown] docusate sodium 100 mg capsule (Colace) 100 mg PO DAILY 10 days #10 caps 11/05/23 [Rx Last Taken Unknown] ibuprofen 800 mg tablet 800 mg PO Q8H 10 days #30 tabs 11/05/23 [Rx Last Taken Unknown] ondansetron 4 mg disintegrating tablet 4 mg PO Q8H 7 days #21 tabs 11/05/23 [Rx Last Taken Unknown] oxycodone-acetaminophen 5 mg-325 mg tablet (Endocet) 1 tab PO Q6H PRN pain 7 days #28 tabs 11/05/23 [Rx Last Taken Unknown] ipratropium 0.5 mg-albuterol 3 mg (2.5 mg base)/3 mL nebulization soln 3 ml inhalation Q6H PRN shortness of breath or wheezing #90 mL 12/07/23 [Rx Last Taken Unknown] ondansetron 4 mg disintegrating tablet 4 mg PO Q8H PRN PRN Nausea #15 tabs 12/07/23 [Rx Last Taken Unknown] prednisone 20 mg tablet 40 mg (2 x 20 mg) PO DAILY #14 tabs 12/07/23 [Rx Last Taken Unknown] Allergy/AdvReac Type Severity Reaction Status Date / Time amoxicillin Allergy Hives Verified 11/05/23 12:16 oxcarbazepine Allergy Other Verified 11/05/23 12:16 [From Trileptal] shellfish derived Allergy Anaphylaxis Verified 11/05/23 12:16 latex AdvReac Rash Verified 11/05/23 12:16 Family History Other Cancer Hypertension Rheumatoid arthritis Surgical History history of left biceps vein surgery History of sinus surgery Hx of colonoscopy Hx of left knee surgery Hx of right knee surgery Social History Smoking Status: Never smoker ROS ROS ED ROS Narrative Constitutional: No fever, no chills. HEENT: No sore throat. No neck pain. No loss of vision. No rhinorrhea. Cardiovascular: No chest pain. No palpitations. No pedal edema. Respiratory: Positive nonproductive cough, increasing shortness of breath, positive dyspnea on exertion. Abdominal: No abdominal pain. Posttussive emesis. Diarrhea. Genitourinary: No dysuria. No hematuria. Musculoskeletal: No myalgias. No arthralgias. Neurologic: No headaches. No dizziness. No lightheadedness. Skin: No rash. No change in color. Psychiatric: No depression. No anxiety. EXAM Physical Exam Narrative Exam Narrative: Afebrile. Vital signs noted. HEENT: Normocephalic. Atraumatic. PERRL, EOMI. Neck soft and supple. No point tenderness or step off. Cardiovascular: Regular rate and rhythm. No murmurs, rubs, or gallops appreciated. Respiratory: No tachypnea. Lungs clear to auscultation bilaterally. Gastrointestinal: Abdomen soft, nontender, with normoactive bowel sounds. No rebound or guarding. Neurological: Awake. Alert. Nonfocal, nonlateralizing. Skin: No rash. Normal color. No pallor. Musculoskeletal: No pedal edema. Full range of motion extremities. Const Vital Signs: 12/07/23 20:45 12/07/23 21:06 12/07/23 21:08 Temperature 96.0 F L 98.5 F 98.5 F Temperature Source Temporal Temporal Temporal Pulse Rate 105 H 99 100 Respiratory Rate 22 H 22 H 20 H Respiratory Effort Respiratory Depth Respiratory Pattern Blood Pressure 158/77 H 141/79 H Blood Pressure Mean 104 99 Pulse Ox 100 99 99 Oxygen Delivery Method Room Air Room Air Room Air 12/07/23 21:10 12/07/23 21:09 Temperature Temperature Source Pulse Rate 104 H Respiratory Rate 18 Respiratory Effort Short of Breath Respiratory Depth Normal Respiratory Pattern Normal Blood Pressure Blood Pressure Mean Pulse Ox Oxygen Delivery Method Room Air MDM MDM MDM Narrative Medical decision making narrative: Patient was concerned because she had ipratropium/albuterol that on November 29, approximately 1 week ago. She wanted know if she could still use it. I do feel that she still could use her aerosols as needed. Will start her on a prednisone burst as well. She will be retested for COVID here and chest x-ray will be obtained to help rule out a pneumonia or pneumothorax. I do not feel laboratory work is indicated. Her pulse ox is 100% on room air here in the emergency department. She may be having more of just a bronchitis or asthma exacerbation. Even if she is positive, I do not feel that Paxlovid is indicated given its interaction with her Tegretol. I reviewed her respiratory swab, and it is positive for COVID. Chest x-ray interpreted by myself independently shows no evidence of pneumonia, multifocal pneumonia, consolidation, or pneumothorax. I reviewed the radiology report which confirms my independent interpretation. At this point in time, she had been given a DuoNeb aerosolized treatment. Her pulse ox remains 99 to 100% on room air. I will start her on a prednisone burst of 40 mg daily for the next 7 days, and I wrote her a new prescription for DuoNeb aerosolized treatments as hers are by 1 week. I do not feel antibiotics are indicated. She was given a loading dose of 60 mg here in the emergency department and will start her steroid burst tomorrow. Additionally, she is having posttussive emesis and requested Zofran. She has been prescribed this in the past but, she was told that it might not be effective against posttussive emesis but she would like a prescription for regardless. I feel she can be discharged to follow-up with her primary care provider. Return instructions to the emergency department were reviewed. Disposition is discharged home in stable condition. Radiography Diagnostic Testing: Clinical Impression(s) from Imaging Studies Chest X-Ray 12/07/23 21:25 IMPRESSION: No acute cardiopulmonary process. Electronically Signed: Ryan Caballero MD (Brooks) at 21:37 EST Reading Location ID and State: [facility] / [place] , Service support , Discharge Plan Triage Chief Complaint: Shortness of Breath ED Provider: Sherwin Lopez Dx/Rx/DC Orders Clinical Impression: COVID-19, Asthmatic bronchitis, Post-tussive vomiting Instructions: Coronavirus Disease 2019 (COVID-19): Caring for Yourself or Others, ED Asthma, Acute (Adult) Prescriptions: New ipratropium-albuterol 0.5 mg-3 mg(2.5 mg base)/3 mL solution for nebulization 3 ml inhalation Q6H PRN (Reason: shortness of breath or wheezing) Qty: 90 0RF prednisone 20 mg tablet 40 mg PO DAILY Qty: 14 0RF ondansetron 4 mg tablet,disintegrating 4 mg PO Q8H PRN PRN (Reason: Nausea) Qty: 15 0RF No Action cetirizine 10 MG tablet 10 mg PO DAILY carbamazepine 200 MG tablet 300 mg PO BIDCM cholecalciferol (vitamin D3) 1,000 UNIT tablet 2,000 unit PO DAILY mometasone-formoterol 8.8 GM HFA aerosol inhaler 2 inh inhalation BID zonisamide 100 MG capsule 100 mg PO QHS zonisamide 50 MG capsule 50 mg PO DAILY montelukast [Singulair] 10 mg Tablet 10 mg PO QHS ciprofloxacin HCl 750 mg tablet 750 mg PO BID albuterol 90 mcg/actuation aerosol 90 mcg inhalation PRN PRN (Reason: SOB) pantoprazole 40 mg tablet,delayed release (DR/EC) 40 mg PO PRN PRN (Reason: GERD) epinephrine 0.3 mg/0.3 mL auto-injector 0.3 mg subcut PRN PRN (Reason: hypersensitivity reaction) Patient Comments: INJECT 0.3ML INTRAMUSCULARLY ONE TIME. MAY REPEAT ONE TIME. oxycodone-acetaminophen [Endocet] 5-325 mg tablet 1 tab PO Q6H PRN (Reason: pain) 7 Days Qty: 28 0RF ibuprofen 800 mg tablet 800 mg PO Q8H 10 Days Qty: 30 0RF ondansetron 4 mg tablet,disintegrating 4 mg PO Q8H 7 Days Qty: 21 0RF docusate sodium [Colace] 100 mg capsule 100 mg PO DAILY 10 Days Qty: 10 0RF ascorbic acid (vitamin C) [Vitamin C] 1,000 mg tablet 1 g PO DAILY 90 Days Qty: 90 0RF calcium carbonate-vitamin D3 [Os-Toni 500 + D3] 500 mg-15 mcg (600 unit) tablet 1 tab PO DAILY 90 Days Qty: 90 0RF Primary Care Provider: Anupama Bates Referrals: Anupama Bates MD [Primary Care Provider] - 1 Week if not improving Disposition Disposition: Home, Self Care
[2023-12-07] MEDS: Ipratropium/Albuterol Sulfate 3 ML AMPUL.NEB INHALATION (21:05)
[2023-12-07 21:06] VITALS: PULSE 99; RESP 22; TEMP 36.9; O2SAT 99
[2023-12-07 21:08] VITALS: BP 141/79; PULSE 100; RESP 20; TEMP 36.9; O2SAT 99
[2023-12-07 21:09] VITALS: PULSE 104; RESP 18
[2023-12-07 21:10] VITALS: O2SAT 98
--- OUTSIDE RECORDS SUMMARY | 2023-12-07 21:21 | XMS RPT_ITS | CCD ---
Author Name Unknown Address [address] [place] [address] Organization [facility] Care Team Providers Care [employer] Reader Name Role Phone Sheila RIVERA, Dre Morataya Unavailable Martha Bates MD Primary Care Provider Martha Bates MD Primary Care Provider Martha Bates MD Primary Care Provider TALAMPKYE, MARTHA Primary Care Unavailable DELICIA COLEY MD Attending Unavailable NO FAMILY PHYSICIAN, [id number] Primary Care Unavail able TALAMPAS, MARTHA D Primary Care Unavailable ERICK, NEISHA Referring Unavailable KWASI VALENTIN Attending Unavailable KWASI VALENTIN Admitting Unavailable TALAMPAS, MARTHA D Primary Care Unavailable TALAMPAS, MARTHA D Primary Care Unavailable TALAMPAS, MARTHA D Attending Unavailable TALAMPAS, MARTHA D Primary Care Unavailable JACKSON LOMELI Referring Unavailable TALAMPAS, MARTHA D Primary Care Unavailable FieldbrookZahidaNeisha Attending Unavailable TALAMPAS, MARTHA D Referring Unavailable JACKSON LOMELI Referring Unavailable TALAMPAS, MARTHA D Primary Care Unavailable Graf Neisha Attending Unavailable TALAMPAS, MARTHA D Primary Care Unavailable TALAMPAS, MARTHA D Primary Care Unavailable JACKSON LOMELI Attending Unavailable JACKSON LOMELI Referring Unavailable TALAMPAS, MARTHA D Primary Care Unavailable HARRISCASSIEI Attending Unavailable TALAMPAS, MARTHA D Primary Care Unavailable TALAMPAS, MARTHA D Primary Care Unavailable HAYLIE RAMIREZ Attending Unavailable TALAMPAS, MARTHA D Primary Care Unavailable HARRIS, ROZ Referring Unavailable TALAMPAS, MARTHA D Primary Care Unavailable TALAMPAS, MARTHA D Primary Care Unavailable LOMELI, JACKSON Attending Unavailable IRMA BATESA Comfort Primary Care Unavailable JACKSON LOMELI Referring Unavailable IRMA BATESA Comfort Primary Care Unavailable ROZ HARRIS Attending Unavailable IRMA BATESA Comfort Primary Care Unavailable ROZ HARRIS Referring Unavailable TAWNY AYALA Attending Unavailable Allergies Allergy Classification Reported Allergen(s) Allergy Type Date of Onset Reaction(s) Facility (20 sources) Amoxicillin; Translations: [AMOXICILLIN] Drug Allergy 01-18-20 09 Hives [facility] Work Phone: (1 source) Codeine Drug Allergy 08-11-20 [facility] Work Phone: (1 source) House dust mite; Translations: [DUST MITES] allergy to substance 07-31-20 [facility] Work Phone: (1 source) Kingdom Animalia; Translations: [ANIMALS] allergy to substance 07-31-20 [facility] Work Phone: (20 sources) Latex; Translations: [LATEX] allergy to substance 01-18-20 09 Rash [facility] Work Phone: (1 source) Mold Extract; Translations: [MOLD] Drug Allergy 07-31-20 21 [facility] Work Phone: (1 source) OXcarbazepine Drug Allergy 07-31-20 21 hyponatremia [facility] Work Phone: (1 source) peanut; Translations: [PEANUTS] food allergy 07-31-20 [facility] Work Phone: (1 source) Pollen; Translations: [POLLEN] allergy to substance 07-31-20 [facility] Work Phone: (1 source) Seasonal allergy; Translations: [SEASONAL] allergy to substance 08-11-20 [facility] Work Phone: (20 sources) Shellfish; Translations: [SHELLFISH] food allergy 11-20-20 10 Other: See Comments, Anaphylaxis [facility] Work Phone: (1 source) WOOL; Translations: [WOOL] allergy to substance 07-31-20 21 [facility] Work Phone: (1 source) EXAM DYE (IODINE); Translations: [EXAM DYE (IODINE)] food allergy 08-11-20 15 [facility] Work Phone: (20 sources) Contrast media; Translations: [CONTRAST DYE] Propensity to adverse reactions to drug 11-20-20 10 GI Upset [facility] Work Phone: (20 sources) Doxycycline; Translations: [DOXYCYCLINE] Drug Allergy 02-06-20 11 GI Upset [facility] Work Phone: (20 sources) Omeprazole; Translations: [OMEPRAZOLE] Drug Allergy 12-06-19 17 Contraindicatio n-Medical Surgical [facility] (20 sources) OXcarbazepine; Translations: [OXCARBAZEPINE] Drug Allergy 01-18-20 09 [facility] Work Phone: (20 sources) Environmental allergies [Other] Propensity to adverse reactions 11-20-20 10 Other: See Comments [facility] (9 sources) peanut allergenic extract; Translations: [PEANUT] Drug Allergy 07-31-20 21 Unknown [facility] (2 sources) OTHER; Translations: [OTHER] Propensity to adverse reactions (disorder) 11-20-20 10 [facility] Other [facility] Medications Current Medications Medication Drug Class(es) Dates Sig (Normalized) Sig (Original) benzonatate 100 mg oral capsule (17 sources) Non-narcotic Antitussive Start: 09-27-2023 End: 11-01-2023 take 1 capsule by mouth every eight hours as needed benzonatate (TESSALON PERLES) 100 mg capsule Take 1 capsule by mouth three times a day as needed for cough. 15 capsule 0 09/27/2023 11/01/2023 Discontinued Completed/Discontinued Medications Medication Drug Class(es) Dates Sig (Normalized) Sig (Original) [id number] 200 actuat albuterol 0.09 mg/actuat metered dose inhaler (20 sources) beta2-Adrenergic Agonist Start: 10-20-2022 take 2 puff(s) by inhalation every six hours as needed albuterol HFA (PROAIR HFA) 90 mcg/actuation inhaler Inhale 2 Puffs as instructed every 6 hours as needed. 1 Each 1 10/20/2022 Active Problems Active Problems Problem Classification Problem Date Documented Date Episodic/Chronic Abdominal hernia (2 sources) Hiatal hernia; Translations: [Diaphragmatic hernia without obstruction or gangrene] Onset: 09-12-2023 09-12-2023 Episodic Asthma (20 sources) Allergic asthma; Translations: [Unspecified asthma, uncomplicated] Onset: 03-15-2010 08-07-2018 Chronic Conditions associated with dizziness or vertigo (1 source) Benign paroxysmal positional vertigo; Translations: [Benign paroxysmal vertigo, unspecified ear] Episodic Diabetes mellitus without complication (3 sources) Increased glucose level; Translations: [Other abnormal glucose] Onset: 08-23-2023 Episodic Disorders of lipid metabolism (20 sources) Hyperlipidemia; Translations: [Hyperlipidemia, unspecified] Onset: 01-06-2016 01-06-2016 Chronic Epilepsy; convulsions (20 sources) Epilepsy, not refractory; Translations: [Epilepsy, unspecified, not intractable, without status epilepticus] Onset: 01-18-2009 Chronic Esophageal disorders (8 sources) Gastroesophageal reflux disease; Translations: [Gastro-esophageal reflux disease without esophagitis] Onset: 05-10-2023 Chronic Esophageal disorders (2 sources) Esophageal disorders; Translations: [Gastroesophageal reflux disease with esophagitis without hemorrhage] Onset: 09-05-2023 Inflammatory diseases of female pelvic organs (1 source) Acute vaginitis; Translations: [Acute vaginitis] Episodic Mycoses (1 source) Candidiasis of vagina; Translations: [Vaginal yeast infection] Episodic Other and unspecified benign neoplasm (7 sources) History of polyp of colon; Translations: [Personal history of colonic polyps] Onset: 09-05-2023 Episodic Other and unspecified benign neoplasm (2 sources) Personal history of colonic polyps; Translations: [History of colonic polyps] Onset: 09-05-2023 Episodic Other ear and sense organ disorders (1 source) Bilateral earache; Translations: [Otalgia, bilateral] Episodic Other female genital disorders (1 source) Vaginal discharge; Translations: [Other specified noninflammatory disorders of vagina] Episodic Other inflammatory condition of skin (20 sources) Rosacea; Translations: [Rosacea, unspecified] Onset: 05-11-2009 05-11-2009 Chronic Other injuries and conditions due to external causes (1 source) Muscle strain; Translations: [Other injury of unspecified body region, initial encounter] 07-22-2023 Episodic Other liver diseases (2 sources) Increased creatine kinase level; Translations: [Abnormal levels of other serum enzymes] Episodic Other liver diseases (1 source) Abnormal levels of other serum enzymes; Translations: [Elevated creatine kinase] Onset: 08-23-2023 Episodic Other lower respiratory disease (1 source) Rib pain; Translations: [Pleurodynia] Episodic Other non-traumatic joint disorders (2 sources) Pain in left knee; Translations: [Pain of knee region] Onset: 02-13-2022 02-13-2022 Episodic Other skin disorders (1 source) Localized swelling, mass and lump, right upper limb; Translations: [Localized superficial swelling, mass, or lump] 07-22-2023 Episodic Other skin disorders (1 source) Cyst of skin; Translations: [Follicular cyst of the skin and subcutaneous tissue, unspecified] 08-07-2023 Episodic Other upper respiratory disease (20 sources) Allergic rhinitis; Translations: [Allergic rhinitis, unspecified] Onset: 04-14-2009 08-07-2018 Chronic Other upper respiratory infections (20 sources) Chronic sinusitis; Translations: [Chronic sinusitis, unspecified] Onset: 11-04-2012 11-04-2012 Chronic Other upper respiratory infections (2 sources) Upper respiratory infection; Translations: [Acute upper respiratory infection, unspecified] Episodic Spondylosis; intervertebral disc disorders; other back problems (3 sources) Lumbar spondylosis; Translations: [Spondylosis without myelopathy or radiculopathy, lumbar region] Onset: 09-22-2015 12-21-2021 Chronic Viral infection (2 sources) Disease caused by 2019-nCoV; Translations: [COVID-19] Episodic Past or Other Problems Problem Classification Problem Date Documented Da te Episodic/Chronic Gastrointestinal hemorrhage (20 sources) Hematochezia; Translations: [Melena] Onset: 09-23-2009 09-23-2009 Episodic Other aftercare (20 sources) Patient encounter status; Translations: [Other mcc (current) drug therapy] Onset: 10-12-2020 10-12-2020 Episodic Other and unspecified benign neoplasm (20 sources) Benign tumor of head and neck; Translations: [Other benign neoplasm of skin of scalp and neck] Onset: 05-11-2009 05-11-2009 Episodic Other and unspecified benign neoplasm (20 sources) Benign neoplasm of skin of trunk; Translations: [Other benign neoplasm of skin of trunk] Onset: 05-11-2009 05-11-2009 Episodic Other circulatory disease (20 sources) Elevated blood-pressure reading without diagnosis of hypertension; Translations: [Elevated blood-pressure reading, without diagnosis of hypertension] Onset: 01-18-2009 01-18-2009 Episodic Other connective tissue disease (20 sources) Soft tissue lesion of shoulder region; Translations: [Bursopathy, unspecified] Onset: 11-28-2010 11-28-2010 Episodic Other screening for suspected conditions (not mental disorders or infectious disease) (5 sources) Decreased vitamin D; Translations: [Other specified abnormal findings of blood chemistry] Onset: 03-26-2023 Episodic Other upper respiratory disease (20 sources) Abnormal voice; Translations: [Unspecified voice and resonance disorder] Onset: 05-02-2015 05-02-2015 Episodic Poisoning by nonmedicinal substances (20 sources) Toxic effect of latex, accidental (unintentional), initial encounter; Translations: [Toxic effect of latex] Onset: 04-14-2009 04-14-2009 Episodic Spondylosis; intervertebral disc disorders; other back problems (20 sources) Sacroiliac disorder; Translations: [Sacrococcygeal disorders, not elsewhere classified] Onset: 03-13-2011 03-13-2011 Episodic Unclassified (1 source) Problem Results Test Name Value Interpretation Reference Range Facil ity Vital Signs Date Time Vital Sign Value Performing Clinician Facility 11-01-2023 07:47-0500 Body weight 77.11 kg Roz Harris APRN.SOCIOLOGY TEACHER Work Phone: [facility] 11-01-2023 07:47-0500 Diastolic blood pressure 82 mm[Hg] Roz Harris APRN.SOCIOLOGY TEACHER Work Phone: [facility] 11-01-2023 07:47-0500 Heart rate 83 /min Roz Harris BALLISTIC TECHNICIAN.SOCIOLOGY TEACHER Work Phone: [facility] 11-01-2023 07:47-0500 Respiratory rate 16 /min Roz Harris BALLISTIC TECHNICIAN.SOCIOLOGY TEACHER Work Phone: [facility] 11-01-2023 07:47-0500 Systolic blood pressure 138 mm[Hg] Roz Harris BALLISTIC TECHNICIAN.SOCIOLOGY TEACHER Work Phone: [facility] 09-27-2023 17:20-0400 Body temperature 99.1 [degF] [facility] BALLISTIC TECHNICIAN.BRICK CHIMNEY SUPERVISOR Work Phone: [facility] 09-27-2023 17:20-0400 Body weight 76.66 kg [facility] BALLISTIC TECHNICIAN.BRICK CHIMNEY SUPERVISOR Work Phone: [facility] 09-27-2023 17:20-0400 Diastolic blood pressure 78 mm[Hg] [facility] BALLISTIC TECHNICIAN.BRICK CHIMNEY SUPERVISOR Work Phone: [facility] 09-27-2023 17:20-0400 Heart rate 98 /min Crow Pendbury BALLISTIC TECHNICIAN.BRICK CHIMNEY SUPERVISOR Work Phone: [facility] 09-27-2023 17:20-0400 Respiratory rate 18 /min [facility] BALLISTIC TECHNICIAN.BRICK CHIMNEY SUPERVISOR Work Phone: [facility] 09-27-2023 17:20-0400 SaO2% (BldA) [Mass fraction] 99 % [facility] BALLISTIC TECHNICIAN.BRICK CHIMNEY SUPERVISOR Work Phone: [facility] 09-27-2023 17:20-0400 Systolic blood pressure 148 mm[Hg] [facility] BALLISTIC TECHNICIAN.BRICK CHIMNEY SUPERVISOR Work Phone: [facility] 09-12-2023 15:19-0400 Body height 171.5 cm Neishadanny Coreasf PA-C Work Phone: [facility] 09-12-2023 15:19-0400 Body temperature 97 [degF] Neisha Fieldbrook PA-C Work Phone: [facility] 09-12-2023 15:19-0400 Body weight 75.75 kg Neisha Fieldbrook PA-C Work Phone: [facility] 09-12-2023 15:19-0400 Diastolic blood pressure 82 mm[Hg] Neisha Fieldbrook PA-C Work Phone: [facility] 09-12-2023 15:19-0400 Heart rate 78 /min Neisha Fieldbrook PA-C Work Phone: [facility] 09-12-2023 15:19-0400 SaO2% (BldA) [Mass fraction] 98 % Neisha Erick PA-C Work Phone: [facility] 09-12-2023 15:19-0400 Systolic blood pressure 124 mm[Hg] Neisha Erick PA-C Work Phone: [facility] 08-07-2023 15:59-0400 Body height 168.9 cm Tawny Ayala MD Work Phone: [facility] 08-07-2023 15:59-0400 Body weight 75.3 kg Tawny Ayala MD Work Phone: [facility] 08-07-2023 15:59-0400 Diastolic blood pressure 88 mm[Hg] Tawny Ayala MD Work Phone: [facility] 08-07-2023 15:59-0400 Heart rate 83 /min Tawny Ayala MD Work Phone: [facility] 08-07-2023 15:59-0400 Respiratory rate 16 /min Tawny Ayala MD Work Phone: [facility] 08-07-2023 15:59-0400 Systolic blood pressure 144 mm[Hg] Tawny Ayala MD Work Phone: [facility] 07-22-2023 07:02-0400 Body weight 73.94 kg Roz Harris APRN.SOCIOLOGY TEACHER Work Phone: [facility] 07-22-2023 07:02-0400 Diastolic blood pressure 82 mm[Hg] Roz Harris APRN.SOCIOLOGY TEACHER Work Phone: [facility] 07-22-2023 07:02-0400 Heart rate 77 /min Roz Harris BALLISTIC TECHNICIAN.SOCIOLOGY TEACHER Work Phone: [facility] 07-22-2023 07:02-0400 Respiratory rate 16 /min Roz Harris BALLISTIC TECHNICIAN.SOCIOLOGY TEACHER Work Phone: [facility] 07-22-2023 07:02-0400 SaO2% (BldA) [Mass fraction] 97 % Roz Harris BALLISTIC TECHNICIAN.SOCIOLOGY TEACHER Work Phone: [facility] 07-22-2023 07:02-0400 Systolic blood pressure 120 mm[Hg] Roz Harris BALLISTIC TECHNICIAN.SOCIOLOGY TEACHER Work Phone: [facility] 05-10-2023 08:11-0400 Body height 170.2 cm Neisha Erick PA-C Work Phone: [facility] 05-10-2023 08:11-0400 Body temperature 96.21 [degF] Neisha Erick PA-C Work Phone: [facility] 05-10-2023 08:11-0400 Body weight 78.02 kg Neisha Fieldbrook PA-C Work Phone: [facility] 05-10-2023 08:11-0400 Diastolic blood pressure 64 mm[Hg] Neisha Fieldbrook PA-C Work Phone: [facility] 05-10-2023 08:11-0400 Heart rate 93 /min Neisha Fieldbrook PA-C Work Phone: [facility] 05-10-2023 08:11-0400 SaO2% (BldA) [Mass fraction] 97 % Neisha Fieldbrook PA-C Work Phone: [facility] 05-10-2023 08:11-0400 Systolic blood pressure 108 mm[Hg] Neisha Erick PA-C Work Phone: [facility] 04-29-2023 09:31-0400 Body temperature 98.6 [degF] Ana Ferraro PA-C Work Phone: [facility] 04-29-2023 09:31-0400 Body weight 78.02 kg Ana Slabaugh PA-C Work Phone: [facility] 04-29-2023 09:31-0400 Diastolic blood pressure 66 mm[Hg] Ana Slabaugh PA-C Work Phone: [facility] 04-29-2023 09:31-0400 Heart rate 88 /min Ana Slabaugh PA-C Work Phone: [facility] 04-29-2023 09:31-0400 Respiratory rate 16 /min Ana Slabaugh PA-C Work Phone: [facility] 04-29-2023 09:31-0400 SaO2% (BldA) [Mass fraction] 97 % Ana Slabaugh PA-C Work Phone: [facility] 04-29-2023 09:31-0400 Systolic blood pressure 102 mm[Hg] Ana Slabaugh PA-C Work Phone: [facility] 01-07-2023 13:51-0500 Body temperature 98.4 [degF] Martha Bates MD Work Phone: [facility] 01-07-2023 13:51-0500 Body weight 79.83 kg Martha Bates MD Work Phone: [facility] 01-07-2023 13:51-0500 Diastolic blood pressure 64 mm[Hg] Martha Bates MD Work Phone: [facility] 01-07-2023 13:51-0500 Heart rate 85 /min Martha Bates MD Work Phone: [facility] 01-07-2023 13:51-0500 Respiratory rate 18 /min Martha Bates MD Work Phone: [facility] 01-07-2023 13:51-0500 SaO2% (BldA) [Mass fraction] 99 % Martha Bates MD Work Phone: [facility] 01-07-2023 13:51-0500 Systolic blood pressure 112 mm[Hg] Martha Bates MD Work Phone: [facility] 10-20-2022 14:21-0500 Body temperature 98.6 [degF] Crow Pendlebury BALLISTIC TECHNICIAN.BRICK CHIMNEY SUPERVISOR Work Phone: [facility] 10-20-2022 14:21-0500 Body weight 80.74 kg Crow Pendleliang BALLISTIC TECHNICIAN.BRICK CHIMNEY SUPERVISOR Work Phone: [facility] 10-20-2022 14:21-0500 Diastolic blood pressure 84 mm[Hg] Crow Pendlebury BALLISTIC TECHNICIAN.BRICK CHIMNEY SUPERVISOR Work Phone: [facility] 10-20-2022 14:21-0500 Heart rate 80 /min Crow Pendlebury BALLISTIC TECHNICIAN.BRICK CHIMNEY SUPERVISOR Work Phone: [facility] 10-20-2022 14:21-0500 Respiratory rate 18 /min Crow Pendleliang BALLISTIC TECHNICIAN.BRICK CHIMNEY SUPERVISOR Work Phone: [facility] 10-20-2022 14:21-0500 SaO2% (BldA) [Mass fraction] 97 % Crow Pendnoemyliang BALLISTIC TECHNICIAN.BRICK CHIMNEY SUPERVISOR Work Phone: [facility] 10-20-2022 14:21-0500 Systolic blood pressure 134 mm[Hg] Crow Pendlebury BALLISTIC TECHNICIAN.BRICK CHIMNEY SUPERVISOR Work Phone: [facility] 10-18-2022 18:30-0500 Body temperature 98.1 [degF] Beba Jacquelin BALLISTIC TECHNICIAN.BRICK CHIMNEY SUPERVISOR Work Phone: [facility] 10-18-2022 18:30-0500 Body weight 82.37 kg Beba Jacquelin BALLISTIC TECHNICIAN.BRICK CHIMNEY SUPERVISOR Work Phone: [facility] 10-18-2022 18:30-0500 Diastolic blood pressure 82 mm[Hg] Beba Jacquelin BALLISTIC TECHNICIAN.BRICK CHIMNEY SUPERVISOR Work Phone: [facility] 10-18-2022 18:30-0500 Heart rate 80 /min Beba Jacquelin BALLISTIC TECHNICIAN.BRICK CHIMNEY SUPERVISOR Work Phone: [facility] 10-18-2022 18:30-0500 Respiratory rate 21 /min Beba Jacquelin BALLISTIC TECHNICIAN.BRICK CHIMNEY SUPERVISOR Work Phone: [facility] 10-18-2022 18:30-0500 SaO2% (BldA) [Mass fraction] 98 % Beba Jacquelin BALLISTIC TECHNICIAN.BRICK CHIMNEY SUPERVISOR Work Phone: [facility] 10-18-2022 18:30-0500 Systolic blood pressure 118 mm[Hg] Beba Jacquelin BALLISTIC TECHNICIAN.BRICK CHIMNEY SUPERVISOR Work Phone: [facility] 10-11-2022 14:12-0500 Body temperature 98.71 [degF] Maude Norris BALLISTIC TECHNICIAN.BRICK CHIMNEY SUPERVISOR Work Phone: [facility] 10-11-2022 14:12-0500 Body weight 79.38 kg Maude Norris BALLISTIC TECHNICIAN.BRICK CHIMNEY SUPERVISOR Work Phone: [facility] 10-11-2022 14:12-0500 Diastolic blood pressure 84 mm[Hg] Maude Norris BALLISTIC TECHNICIAN.BRICK CHIMNEY SUPERVISOR Work Phone: [facility] 10-11-2022 14:12-0500 Heart rate 89 /min Maude Norris BALLISTIC TECHNICIAN.BRICK CHIMNEY SUPERVISOR Work Phone: [facility] 10-11-2022 14:12-0500 Respiratory rate 16 /min Maude Norris BALLISTIC TECHNICIAN.BRICK CHIMNEY SUPERVISOR Work Phone: [facility] 10-11-2022 14:12-0500 SaO2% (BldA) [Mass fraction] 97 % Maude Norris BALLISTIC TECHNICIAN.BRICK CHIMNEY SUPERVISOR Work Phone: [facility] 10-11-2022 14:12-0500 Systolic blood pressure 136 mm[Hg] Maude Norris BALLISTIC TECHNICIAN.BRICK CHIMNEY SUPERVISOR Work Phone: [facility] NEGATED: Highlighted [id number] 10:00-0400 Body height 170.18 cm Eula Cherelle AT [facility] Work Phone: NEGATED: Highlighted [id number] 10:00-0400 Body height 170 cm Eula Cherelle AT [facility] Work Phone: NEGATED: Highlighted [id number] 10:00-0400 Body mass index (BMI) [Ratio] 27.98 kg/m2 Eula Cherelle AT [facility] Work Phone: NEGATED: Highlighted [id number] 10:00-0400 Body weight 80.74 kg Eula Cherelle AT [facility] Work Phone: NEGATED: Highlighted [id number] 10:00-0400 Body weight 81 kg Eula Cherelle AT [facility] Work Phone: NEGATED: Highlighted [id number] 10:00-0400 Diastolic blood pressure 0 mm[Hg] Eula Cherelle AT [facility] Work Phone: NEGATED: Highlighted [id number] 10:00-0400 Heart rate 0 /min Eula Cherelle AT [facility] Work Phone: NEGATED: Highlighted [id number] 10:00-0400 Systolic blood pressure 0 mm[Hg] Eula Cherelle AT [facility] Work Phone: Encounters Encounter Date Encounter Type Care Provider Facility Start: 11-01-2023 End: 11-02-2023 [facility] Facility:[facility] Start: 11-01-2023 Encounter for other preprocedural examination MARTHA BATES [facility] Start: 11-01-2023 Telephone encounter Roz cantrell BALLISTIC TECHNICIAN.SOCIOLOGY TEACHER Work Phone: [facility] [place] Procedures Date Procedure Procedure Detail Performing Clinician Start: 09-05-2023 Colonoscopy Neisha morataya PA-C Work Phone: Start: 04-29-2023 Urnls dip stick/tabl et rgnt auto w/o microscopy Yuniel Chong MD Work Phone: Start: 01-10-2023 Mammography Mammograph y Coordinator Start: 04-09-2022 Adult depression screening assessment Martha Bates MD Work Phone: Start: 02-13-2022 End: 02-14-2022 BP scrn perf rec interval Dre Sosa MD Work Phone: Start: 02-13-2022 End: 02-14-2022 Calc BMI abv up rajiv f/u Dre Sosa MD Work Phone: Start: 02-13-2022 End: 02-14-2022 Current tobacco non-user cad cap copd pv dm Dre Sosa MD Work Phone: Start: 02-13-2022 End: 02-14-2022 Docrev cur meds by ankita Sosa MD Work Phone: Start: 02-13-2022 End: 02-14-2022 Pain doc pos and plan Dre Moyer Work Phone: Start: 02-13-2022 End: 02-14-2022 Patient encounter procedure Dre Sosa MD Work Phone: Start: 02-13-2022 End: 02-13-2022 Radiologic exam knee complete 4/more views Dre Sosa MD Work Phone: Start: 12-24-2021 Adult depression screening assessment Eliud Durbin MD Work Phone: Start: 07-11-2021 Mammography Eliud corado MD Work Phone: Start: 04-03-2021 Lipid 1996 panel - Serum or Plasma Neisha Chino PA-C Work Phone: Start: 07-14-2018 Colonoscopy Eliud corado MD Work Phone: History of operative procedure on knee S/P arthroscopic surgery of left knee Roz Harris CORY.SOCIOLOGY TEACHER Work Phone: NEGATED: Highlighted rowStart: 02-13-2022 End: 02-13-2022 Documentation of current medications Eula STALLWORTH Plan of Treatment Date Care Activity Detail Author Start: 05-22-2032 Urine microalbumin profile [facility] Start: 09-05-2028 Colonoscopy Colonoscopy [facility] Start: 09-05-2028 Colorectal Cancer Screening Colorectal Cancer Screening [facility] Start: 08-23-2026 Diabetes Screening Diabetes Screening [facility] Start: 06-11-2026 Urine microalbumin profile DTAP,TDAP,TD (3 - Td or Tdap) [facility] Start: 04-05-2026 DIABETES SCREEN DIABETES SCREEN [facility] Start: 04-03-2026 Lipid 1996 panel - Serum or Plasma Lipid Screening [facility] Start: 04-03-2026 LIPID SCREEN LIPID SCREEN [facility] Start: 03-26-2026 DIABETES SCREEN DIABETES SCREEN [facility] Start: 04-16-2025 DIABETES SCREEN DIABETES SCREEN [facility] Start: 09-18-2024 HPV TESTING HPV TESTING [facility] Start: 09-18-2024 PAP TESTING PAP TESTING [facility] Start: 08-22-2024 DIABETES SCREEN DIABETES SCREEN [facility] Start: 01-10-2024 Mammography [facility] Start: 01-07-2024 ANNUAL PCP TEAM CHRONIC DISEASE VISIT ANNUAL PCP TEAM CHRONIC DISEASE VISIT [facility] Start: 11-27-2023 ANNUAL PCP TEAM CHRONIC DISEASE VISIT ANNUAL PCP TEAM CHRONIC DISEASE VISIT [facility] Start: 11-01-2023 End: 01-31-2024 CBC W Auto Differential panel - Blood [facility] Work Phone: Immunizations Immunization Date Immunization Notes Care Provider Michael mancuso 09-07-2023 Seasonal, quadrivale nt, recombinant, injectable influenza vaccine, preservative free Neisha Chino PA-C Work Phone: [facility] 11-21-2022 zoster vaccine recombinant [facility] Work Phone: [facility] 09-01-2022 Seasonal, quadrivale nt, recombinant, injectable influenza vaccine, preservative free [facility] Work Phone: [facility] 2022 pneumococcal (PCV20) vaccine, 20 valent (PREVNAR 20) [facility] Work Phone: [facility] 2022 zoster vaccine recombinant [facility] Work Phone: [facility] 05-22-2022 tetanus toxoid, redu kathryn diphtheria toxoid, and acellular pertussis vaccine, adsorbed Dakotah Jefferson PA-C Work Phone: [facility] Work Phone: 08-31-2020 influenza, injectabl e, quadrivalent, contains preservative Eliud Durbin MD Work Phone: [facility] 09-01-2018 influenza virus vaccine, unspecified formulation Eliud Durbin MD Work Phone: [facility] 09-16-2017 influenza, injectabl e, quadrivalent, contains preservative Eliud Durbin MD Work Phone: [facility] Work Phone: 08-02-2016 influenza, seasonal, injectable Eliud Durbin MD Work Phone: [facility] 06-11-2016 tetanus toxoid, redu kathryn diphtheria toxoid, and acellular pertussis vaccine, adsorbed Eliud Durbin MD Work Phone: [facility] Work Phone: 11-20-2010 pneumococcal polysaccharide vaccine, 23 valent Eliud Durbin MD Work Phone: [facility] 10-28-2010 influenza virus vaccine, unspecified formulation Eliud Durbin MD Work Phone: [facility] 03-24-2010 tetanus toxoid, redu kathryn diphtheria toxoid, and acellular pertussis vaccine, adsorbed Eliud Durbin MD Work Phone: [facility] Work Phone: 10-11-2009 novel [id number], all formulations Eliud Durbin MD Work Phone: [facility] Work Phone: 09-07-2009 influenza virus vaccine, unspecified formulation Eliud Durbin MD Work Phone: [facility] 09-18-1993 influenza, seasonal, injectable [facility] Work Phone: [facility] NEGATED: Highlighted row has not occurred!05-31-2022 influenza virus vaccine, unspecified formulation Dakotah Jefferson PA-C Work Phone: [facility] Work Phone: NEGATED: Highlighted row has not occurred!05-31-2022 pneumococcal (PCV20) vaccine, 20 valent (PREVNAR 20) Dakotah Jefferson PA-C Work Phone: [facility] Work Phone: Payers Date Payer Category Payer Private Health Insurance 2021 Unknown [id number] 2021 Unknown [id number] 2021 Unknown [id number] 2008 Unknown [id number] 1968 Unknown [id number] 1968 Unknown [id number] Social History Date Type Detail Facility Start: 02-14-2022 End: 02-14-2022 Assertion Unknown if ever smoked [facility] Work Phone: Start: 08-07-2023 Tobacco smoking stat [facility] Never smoked tobacco [facility] Start: 11-15-2021 End: 11-01-2023 Alcohol intake Current non-drinker of alcohol (finding) [facility] Start: 08-31-2020 End: 11-27-2022 History SDOH Alcohol Frequency 1 [facility] Start: 08-31-2020 End: 11-27-2022 History SDOH Social Connections Phone 5 [facility] Start: 08-31-2020 End: 11-27-2022 History SDOH Social Connections Meetings 3 [facility] Start: 08-31-2020 End: 11-27-2022 History SDOH Social Connections Living 7 [facility] Start: 08-31-2020 End: 11-27-2022 History SDOH Physical Activity DPW 2 [facility] Start: 08-31-2020 End: 11-27-2022 History SDOH Financial 4 [facility] Start: 08-31-2020 Education 20 [facility] Start: 1970 Sex Assigned At Female C [facility] Start: 03-23-2022 End: 04-03-2022 Exposure to SARS-CoV-2 (event) Unable to assess [facility] Start: 04-10-2022 End: 10-20-2022 Exposure to SARS-CoV-2 (event) Not sure [facility] Start: 11-27-2022 History SDOH Alcohol Std Drinks 0 [facility] Start: 11-27-2022 History SDOH Social Connections Get Together 98 [facility] Start: 11-27-2022 History SDOH Physica l Activity MPS 6 [facility] Start: 11-27-2022 End: 09-12-2023 History of Social function [facility] Start: 11-27-2022 End: 09-12-2023 Social connection and isolation panel [facility] How often do you get together with friends or relatives? Patient refused [facility] Do you belong to any clubs or organizations such as episcopalian groups, unions, fraternal or athletic groups, or school groups? Yes [facility] Are you now , , , , never or living with a partner? Never [facility] How often to you hav e a drink containing alcohol? Never [facility] How hard is it for y ou to pay for the very basics like food, housing, medical care, and heating Not very hard [facility] Do you feel stress - tense, restless, nervous, or anxious, or unable to sleep at night because your mind is troubled all the time - these days [OSQ] Only a little [facility] (I/We) worried ana er (my/our) food would run out before (I/we) got money to buy more. Never true [facility] In the past 12 month s, was there a time when you were not able to pay the mortgage or rent on time? No [facility] Start: 11-29-2020 Gender identity Identifies as female gender (finding) [facility] Start: 11-29-2020 Sexual orientation Heterosexua l (finding) [facility] Start: 08-07-2023 Tobacco use and exposure Smokeless tobacco non-user [facility] NEGATED: Highlighted rowStart: 02-13-2022 End: 02-13-2022 Employment detail Employment detail [facility] Work Phone: NEGATED: Highlighted rowStart: NINF History of tobacco use Passive smoker [facility] Clinical Notes 07-11-2021 to 11-01-2023 Telephone Encounter - Marta Wilson LPN - 11/01/2023 1:14 PM ESTTelephone Encounter - Roz Harris APRN.CNS - 11/01/2023 11:06 AM Roz Carney APRN.CNS - 11/01/2023 7:43 AM EST Note Date & Type Note Facility 11-01-2023 Miscellaneous Notes Attempted to contact Roberto from [facility] but office is closed. Patient was just seen today for pre op visit. Forms have not yet been completed due to labs still pending. Ask to call office and ask to speak to a nurse with any questions or concerns OV November 01, 2023 Roberto from [facility] calls and states that [facility] had cancellation for surgery Saturday and were wanting to put patient on schedule. Roberto asking if patient is clear for surgery and if pre op surgical clearance paperwork as well as labs can be faxed today to [phone]. Call Roberto with any questions. Giulia Sanders RN documented in this encounter [facility] 11-01-2023 Note HNO ID: [id number] Author: oRz Harris APRN.CNS Service: ? Author Type: Nurse Specialist Type: Progress Notes Filed: 11/04/2023 10:06 AM Note Text: Subjective HPI Maddie Mcallister is a 53 year old female. PMH significant for ACTIVE PROBLEM LIST HIGH BLOOD PRESSURE-NO HYPERTENSN Epilepsy (Hcc) Allergic Rhinitis Toxic Effect of Latex(989.82) Toxic Effect of Fish and Shellfish(988.0) INTRADERMAL NEVUS MOLE//BENIGN YONY SCALP/SKIN NECK Rosacea NEVOCELLULAR NEVI MOLES///BENIGN YONY SKIN TRUNK Blood in Stool Extrinsic Asthma Disorders of Bursae and Tendons in Shoulder Region, Unspecified Sacroiliac Dysfunction Chronic Sinusitis Unspecified Sinusitis (Chronic) Cervicalgia Voice Disturbance Hyperlipidemia Encounter for Long-Term (Current) Use of Medications History of Colonic Polyps Gastroesophageal Reflux Disease With Esophagitis Without Hemorrhage Notes surgical excision of benign nodule at [facility] then developed infection with pseudomonas at the site with a chronically draining non-healing wound at right ankle since that time, ~ 5 weeks. Taking Cipro currently. ACS NSQIP Surgical Risk Calculator She is scheduled for repair of extensor tendon with delayed primary closure of the right foot general anesthesia planned with popliteal saphenous nerve block. Rik Carlisle [facility]. Has not yet had labs completed. Date: to be determined, Nov Location: [facility] History of heart disease: no High School Assistant Principal: no Prior cardiac testing: years ago prior with physical for [place] History of stroke: no Functional capacity: no Chest pain: no Shortness of breath: no current, has asthma Prior difficulty with anesthesia: no prior problems with two meniscus surgeries Procedure CPT Code: 1. Age Group: < 65 years 2. Sex: female 3. Functional Status: Independent 4. Emergency Case: No 5. ASA Class: Mild systemic disease 6. Steroid use for chronic condition: No 7. Ascites within 30 days prior to surgery: No 8. Systemic Sepsis within 48 hours prior to surgery: None 9. Ventilator Dependent: No 10. Disseminated Cancer: No 11. Diabetes: None 12. Hypertension requiring medication: No 13. Congestive Heart Failure in 30 days prior to surgery: No 14. Dyspnea: No 15. Current Smoker within 1 Year: No 16. History of COPD: No 17. Dialysis: No 18. Acute Renal Failure: No 19. BMI Class Calculation: Normal Review of Systems Constitutional: Negative. Respiratory: Negative. Cardiovascular: Negative. Objective BP 138/82 Pulse 83 Resp 16 Wt 77.1 kg (170 lb) BMI 26.23 kg/m? Physical Exam Vitals and nursing note reviewed. HENT: Head: Normocephalic and atraumatic. Eyes: Conjunctiva/sclera: Conjunctivae normal. Neck: Thyroid: No thyromegaly. Vascular: Normal carotid pulses. No JVD. Cardiovascular: Rate and Rhythm: Normal rate and regular rhythm. Pulses: Carotid pulses are 2+ on the right side. Radial pulses are 2+ on the right side and 2+ on the left side. Heart sounds: Normal heart sounds. Pulmonary: Effort: Pulmonary effort is normal. Breath sounds: Normal breath sounds. Abdominal: Palpations: Abdomen is soft. Musculoskeletal: Thoracic back: No spasms or tenderness. Normal range of motion. Right lower leg: No edema. Left lower leg: No edema. Comments: Walking boot right lower extremity Skin: General: Skin is warm and dry. Neurological: General: No focal deficit present. Mental Status: She is oriented to person, place, and time. ALLERGIES Allergen Reactions Latex Rash Shellfish Anaphylaxis Crab, scallop, oyster. Shrimp with exercise causes her throat to swell Amoxicillin Hives Contrast Dye GI Upset [place] warm Doxycycline GI Upset Environmental Aller* Other: See Comments Cats, dogs, dust mites, molds, trees, grasses, weeds, ragweed Prilosec [Omeprazol* Contraindication-Medical Surgical Adverse reaction with tegretol Trileptal [Oxcarbaz* Sodium level decreases Peanut Unknown Mild symptoms so patient does not ingest Current Outpatient Medications Medication Sig TEGRETOL XR 200 mg 12 hr tablet Take 1 tablet by mouth two times a day. BRAND. Take with 100 mg tablets. zonisamide (ZONEGRAN) 50 mg capsule Take 1 capsule by mouth every morning AND 2 capsules daily at bedtime. TEGRETOL XR 100 mg 12 hr tablet Take 1 tablet by mouth two times a day. BRAND. Take with 200 mg tablets. Lactobacillus rhamnosus GG (CULTURELLE ORAL) Take by mouth. albuterol HFA (PROAIR HFA) 90 mcg/actuation inhaler Inhale 2 Puffs as instructed every 6 hours as needed. albuterol (PROVENTIL) 2.5 mg /3 mL (0.083 %) nebulizer solution Use 3 mL via nebulizer every 4 hours as needed for wheezing/shortness of breath. Use over 5-15minutes. MOMETASONE/FORMOTEROL (DULERA INHALATION) Inhale as instructed. EPINEPHrine (EPIPEN 2-DEMI) 0.3 mg/0.3 mL auto-injector (more content not included)... [facility] 11-01-2023 History of Present illness Narrative Subjective HPI Maddie Mcallister is a 53 year old female. PMH significant for ACTIVE PROBLEM LIST HIGH BLOOD PRESSURE-NO HYPERTENSN Epilepsy (Hcc) Allergic Rhinitis Toxic Effect of Latex(989.82) Toxic Effect of Fish and Shellfish(988.0) INTRADERMAL NEVUS MOLE//BENIGN YONY SCALP/SKIN NECK Rosacea NEVOCELLULAR NEVI MOLES///BENIGN YONY SKIN TRUNK Blood in Stool Extrinsic Asthma Disorders of Bursae and Tendons in Shoulder Region, Unspecified Sacroiliac Dysfunction Chronic Sinusitis Unspecified Sinusitis (Chronic) Cervicalgia Voice Disturbance Hyperlipidemia Encounter for Long-Term (Current) Use of Medications History of Colonic Polyps Gastroesophageal Reflux Disease With Esophagitis Without Hemorrhage Notes surgical excision of benign nodule at [facility] [place] then developed infection with pseudomonas at the site with a chronically draining non-healing wound at right ankle since that time, ~ 5 weeks. Taking Cipro currently. ACS NSQIP Surgical Risk Calculator She is scheduled for repair of extensor tendon with delayed primary closure of the right foot general anesthesia planned with popliteal saphenous nerve block. Rik Carlisle [facility]. Has not yet had labs completed. Date: to be determined, Nov Location: [facility] History of heart disease: no High School Assistant Principal: no Prior cardiac testing: years ago prior with physical for [place] History of stroke: no Functional capacity: no Chest pain: no Shortness of breath: no current, has asthma Prior difficulty with anesthesia: no prior problems with two meniscus surgeries Procedure CPT Code: 1. Age Group: < 65 years 2. Sex: female 3. Functional Status: Independent 4. Emergency Case: No 5. ASA Class: Mild systemic disease 6. Steroid use for chronic condition: No 7. Ascites within 30 days prior to surgery: No 8. Systemic Sepsis within 48 hours prior to surgery: None 9. Ventilator Dependent: No 10. Disseminated Cancer: No 11. Diabetes: None 12. Hypertension requiring medication: No 13. Congestive Heart Failure in 30 days prior to surgery: No 14. Dyspnea: No 15. Current Smoker within 1 Year: No 16. History of COPD: No 17. Dialysis: No 18. Acute Renal Failure: No 19. BMI Class Calculation: Normal Review of Systems Constitutional: Negative. Respiratory: Negative. Cardiovascular: Negative. Objective BP 138/82 Pulse 83 Resp 16 Wt 77.1 kg (170 lb) BMI 26.23 kg/m Physical Exam Vitals and nursing note reviewed. HENT: Head: Normocephalic and atraumatic. Eyes: Conjunctiva/sclera: Conjunctivae normal. Neck: Thyroid: No thyromegaly. Vascular: Normal carotid pulses. No JVD. Cardiovascular: Rate and Rhythm: Normal rate and regular rhythm. Pulses: Carotid pulses are 2+ on the right side. Radial pulses are 2+ on the right side and 2+ on the left side. Heart sounds: Normal heart sounds. Pulmonary: Effort: Pulmonary effort is normal. Breath sounds: Normal breath sounds. Abdominal: Palpations: Abdomen is soft. Musculoskeletal: Thoracic back: No spasms or tenderness. Normal range of motion. Right lower leg: No edema. Left lower leg: No edema. Comments: Walking boot right lower extremity Skin: General: Skin is warm and dry. Neurological: General: No focal deficit present. Mental Status: She is oriented to person, place, and time. ALLERGIES Allergen Reactions Latex Rash Shellfish Anaphylaxis Crab, scallop, oyster. Shrimp with exercise causes her throat to swell Amoxicillin Hives Contrast Dye GI Upset [place] warm Doxycycline GI Upset Environmental Aller* Other: See Comments Cats, dogs, dust mites, molds, trees, grasses, weeds, ragweed Prilosec [Omeprazol* Contraindication-Medical Surgical Adverse reaction with tegretol Trileptal [Oxcarbaz* Sodium level decreases Peanut Unknown Mild symptoms so patient does not ingest Current Outpatient Medications Medication Sig TEGRETOL XR 200 mg 12 hr tablet Take 1 tablet by mouth two times a day. BRAND. Take with 100 mg tablets. zonisamide (ZONEGRAN) 50 mg capsule Take 1 capsule by mouth every morning AND 2 capsules daily at bedtime. TEGRETOL XR 100 mg 12 hr tablet Take 1 tablet by mouth two times a day. BRAND. Take with 200 mg tablets. Lactobacillus rhamnosus GG (CULTURELLE ORAL) Take by mouth. albuterol HFA (PROAIR HFA) 90 mcg/actuation inhaler Inhale 2 Puffs as instructed every 6 hours as needed. albuterol (PROVENTIL) 2.5 mg /3 mL (0.083 %) nebulizer solution Use 3 mL via nebulizer every 4 hours as needed for wheezing/shortness of breath. Use over 5-15minutes. MOMETASONE/FORMOTEROL (DULERA INHALATION) Inhale as instructed. EPINEPHrine (EPIPEN 2-DEMI) 0.3 mg/0.3 mL auto-injector Inject 0.3 mL intramuscularly as needed (for allergic reaction.Seek emergent medical care immediately after use.Disp:one 2-pack w/it trainer). fluticasone (FLONASE) 50 mcg/actuation nasal spray Use 2 Sprays in each nostril every morning. Rinse mouth after use. montelukast (SINGULAIR) 10 mg tablet take 1 tablet by mouth at bedtime Cholecalciferol, Vitamin D3, 5,000 unit cap Take 1 capsule by mouth once daily. cetirizine hcl(ZYRTEC 10 MG TAB) Take one(1) tablet daily. No current facility-administered medications for this visit. PAST MEDICAL HISTORY Diagnosis Date Chronic frontal sinusitis last CT 11/2012: STABLE POSTOPERATIVE CHANGES FROM PRIOR SINONASAL SURGERY. Concussion 07/2013 post-concussive symptoms; 07/2013 and 01/2014 Concussion month of may 2016 Disc degeneration 2012 bulging,cervical GERD (gastroesophageal reflux disease) Dx 2000 Liver cyst multiple hepatic cysts Lower GI hemorrhage 2008 normal colonoscopy Renal cyst Simple right renal Unspecified asthma(493.90) EIA in her 20's Unspecified epilepsy without mention of intractable epilepsy (HCC) Epilepsy, last episode 20 years PAST SURGICAL HISTORY Procedure Laterality Date COLONOSCOPY 09/05/2023 COLONOSCOPY FLX DX W/COLLJ SPEC WHEN PFRMD 10/14/2009 normal COLONOSCOPY FLX DX W/COLLJ SPEC WHEN PFRMD 07/14/2018 Colonoscopy EGD 09/05/2023 ESOPHAGOGASTRODUODENOSCOPY TRANSORAL DIAGNOSTIC 07/14/2018 EGD PAST SURGICAL HISTORY OF 2005 Vein extraction Left Bicep PAST SURGICAL HISTORY OF 2011 Left Endoscopic Sinus Surgery SINUS SURGERY PROC UNLISTED 2001 FAMILY HISTORY Problem Relation Age of Onset Hypertension Mother Asthma Mother Heart Father Emphysema Father other (Lung Cancer) Father Smoker other (heart attack) Father reports that she has never smoked. She has never been exposed to tobacco smoke. She has never used smokeless tobacco. She reports that she does not drink alcohol and does not use drugs. Component Latest Ref Rng & Units 08/22/2021 09/25/2021 04/16/2022 Protein, Total 6.3 - 8.0 g/dL 6.9 6.8 Albumin 3.9 - 4.9 g/dL 4.5 4.6 Calcium 8.5 - 10.2 mg/dL 9.2 8.9 Bilirubin, Total 0.2 - 1.3 mg/dL 0.3 0.2 Alkaline Phosphatase 34 - 123 U/L 82 85 AST 13 - 35 U/L 16 16 Glucose 74 - 99 mg/dL 97 104 (H) BUN 7 - 21 mg/dL 12 17 Creatinine 0.58 - 0.96 mg/dL 0.91 0.93 Sodium 136 - 144 mmol/L 139 142 Potassium 3.7 - 5.1 mmol/L 4.3 4.0 Chloride 97 - 105 mmol/L 105 107 (H) CO2 22 - 30 mmol/L 23 22 Anion Gap 9 - 18 mmol/L 11 13 ALT 7 - 38 U/L 15 15 eGFR- >60 eGFR-All Other Races . >60 eGFR >=60 mL/min/1.73m 74 Cortisol 4.8 - 19.5 ug/dL 12.8 Zonisamide 10.0 - 40.0 ug/mL 11.7 9.5 (L) Carbamazepine, Free 0.8 - 2.4 ug/mL 1.8 2.0 Carbamazepine 4.0 - 12.0 ug/mL 9.7 10.1 ASSESSMENT/PLAN: 1. Pre-operative examination for internal medicine - ICD9: V72.83, ICD10: Z01.818 Below average risk for complications with surgery. She will get lab work today. No need for any additional testing. History of asthma currently in good control. Notes she has occasionally used albuterol prior to surgery in the past. No pulmonary or anesthesia difficulties with 2 meniscus surgeries in the last year. - CBC + DIFF - COMP METABOLIC PANEL Roz Harris, BALLISTIC TECHNICIAN.SOCIOLOGY TEACHER Medical Decision Making: Problems: Low: Acute, uncomplicated illness or injury Moderate: 2+ stable chronic illnesses Data: Unique test(s) ordered: 2 Risk: High: Decision on elective major surgery w/ risk factors Medical Decision Making Level: 4 - Moderate documented in this encounter [facility] 10-03-2023 Note HNO ID: [id number] Author: Jackson Lomeli PA-C Service: ? Author Type: Physician Order Fulfillment Specialist Type: Progress Notes Filed: 10/03/2023 10:29 AM Note Text: [facility] VIRTUAL VISIT This is a virtual visit using Reading Room video visit. It required patient-provider interaction for the medical decision making as documented below. I have communicated my name and active licensure. The patient's identity and physical location were verified at the time of this visit. Either the patient or their legal credit and collections representative has been informed of the risks and benefits of -- and alternatives to -- treatment through a remote evaluation and consents to proceed with the evaluation remotely. CHIEF COMPLAINT: Patient presents with: Follow Up Epilepsy HISTORY OF PRESENT ILLNESS: Maddie Mcallister is a 53 year old right handed female who is diagnosed with epilepsy since age 3 or 4, and presents today for follow up. They are an established patient of Dr. Eliud Durbin and was last seen on March 28, 2023. Current seizure medications: Tegretol XR 300mg BID Zonegran 50/100 Side effects: None Auras/Seizures: None. Her last aura was August 2021. Last known seizure was 1989. Other health: She has a current sinus infection and cannot hear well; She went to express care and was prescribed an antibiotic (doxycycline?) and has been taking musinexand other OTC medication - feeling better. Not sleeping well, knows she needs to work on that - stays up late. Continues to have knee pain - recently completed physical therapy. No recent dizziness/falls. 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: yes Component Latest Ref Rng AND Units 03/26/2023 04/05/2023 08/23/2023 Protein, Total 6.3 - 8.0 g/dL 6.7 6.6 Albumin 3.9 - 4.9 g/dL 4.4 4.3 Calcium 8.5 - 10.2 mg/dL 8.8 9.1 8.9 Bilirubin, Total 0.2 - 1.3 mg/dL <0.2 (L) 0.3 Alkaline Phosphatase 34 - 123 U/L 74 65 AST 13 - 35 U/L 18 17 ALT 7 - 38 U/L 13 17 Glucose 74 - 99 mg/dL 110 (H) 103 (H) 92 BUN 7 - 21 mg/dL 17 15 17 Creatinine 0.58 - 0.96 mg/dL 1.03 (H) 1.02 (H) 0.92 Sodium 136 - 144 mmol/L 140 140 139 Potassium 3.7 - 5.1 mmol/L 4.0 4.1 4.3 Chloride 97 - 105 mmol/L 106 (H) 104 106 (H) CO2 22 - 30 mmol/L 24 23 23 Anion Gap 9 - 18 mmol/L 10 13 10 eGFR >=60 mL/min/1.73mA? 65 66 74 Hemoglobin A1C 4.3 - 5.6 % 5.7 (H) 5.6 Estimated Average Glucose mg/dL 117 114 SEIZURE DESCRIPTION: Seizure type 1: aura of vertigo (room spinning, unsteadiness) Duration: uncertain, seconds to 3 minutes Seizure type 2: ?psychic aura (feeling of critical alertness) +/---> aura of vertigo Duration: up to 10 seconds CURRENT OUTPATIENT MEDICATIONS: Current Outpatient Medications Medication Sig benzonatate (TESSALON PERLES) 100 mg capsule Take 1 capsule by mouth three times a day as needed for cough. guaiFENesin (MUCINEX) 600 mg 12 hr tablet Take 1 tablet by mouth two times a day as needed for cold/allergy symptoms (cough) for up to 7 days. Lactobacillus rhamnosus GG (CULTURELLE ORAL) Take by mouth. TEGRETOL XR 200 mg 12 hr tablet Take 1 tablet by mouth twice daily. BRAND. Take with 100 mg strength tabs. TEGRETOL XR 100 mg 12 hr tablet Take 1 tablet by mouth twice daily. Take with 200 mg tablets. albuterol HFA (PROAIR HFA) 90 mcg/actuation inhaler Inhale 2 Puffs as instructed every 6 hours as needed. albuterol (PROVENTIL) 2.5 mg /3 mL (0.083 %) nebulizer solution Use 3 mL via nebulizer every 4 hours as needed for wheezing/shortness of breath. Use over 5-15minutes. zonisamide (ZONEGRAN) 50 mg capsule Take 1 capsule by mouth every morning AND 2 capsules daily at bedtime. MOMETASONE/FORMOTEROL (DULERA INHALATION) Inhale as instructed. EPINEPHrine (EPIPEN 2-DEMI) 0.3 mg/0.3 mL auto-injector Inject 0.3 mL intramuscularly as needed (for allergic reaction.Seek emergent medical care immediately after use.Disp:one 2-pack w/it trainer). fluticasone (FLONASE) 50 mcg/actuation nasal spray Use 2 Sprays in each nostril every morning. Rinse mouth after use. montelukast (SINGULAIR) 10 mg tablet take 1 tablet by mouth at bedtime Cholecalciferol, Vitamin D3, 5,000 unit cap Take 1 capsule by mouth once daily. cetirizine hcl(ZYRTEC 10 MG TAB) Take one(1) tablet daily. No current facility-administered medications for this visit. PAST MEDICAL HISTORY Diagnosis Date Chronic frontal sinusitis last CT 11/2012: STABLE POSTOPERATIVE CHANGES FROM PRIOR SINONASAL SURGERY. Concussion 07/2013 post-concussive symptoms; 07/2013 and 01/2014 Concussion month of may 2016 Disc degeneration 2012 bulging,cervical GERD (gastroesophageal reflux disease) Dx 1999 Liver cyst multiple hepatic cysts Lower GI hemorrhage 2008 normal colonoscopy Renal cyst Simple right renal Unspecified asthma(493.90) EIA in her 20's Unspecified epilepsy without mention of intractable epilepsy (HCC) Epilepsy, last episode (more content not included)... [facility] 09-27-2023 Note HNO ID: [id number] Author: Crow Dave APRN.BRICK CHIMNEY SUPERVISOR Service: ? Author Type: Nurse Practitioner Type: Progress Notes Filed: 09/27/2023 5:58 PM Note Text: Subjective HPI Nontoxic-appearing female presents to urgent care with chief complaint of upper respiratory tract like infection. Duration of symptoms 1 day. Associated symptoms sore throat, ears clogged, nasal congestion, nasal discharge and nonproductive cough. Patient denies the use of any [id number] medications or home remedies for symptom management. Patient states recent sick contacts with similar signs and symptoms. Patient denies any productive cough, fever, chest pain, shortness of breath, pleuritic pain, rash, abdominal pain, nausea, vomiting or change in bowel or bladder habit. Past medical history prescription medication use allergies reviewed. .Patient presents with: Head Congestion: ST, sinus congestion, ears clogged, cough, chest congestion x1 day PAST MEDICAL HISTORY Diagnosis Date Chronic frontal sinusitis last CT 11/2012: STABLE POSTOPERATIVE CHANGES FROM PRIOR SINONASAL SURGERY. Concussion 07/2013 post-concussive symptoms; 07/2013 and 01/2014 Concussion month of may 2016 Disc degeneration 2012 bulging,cervical GERD (gastroesophageal reflux disease) Dx 2000 Liver cyst multiple hepatic cysts Lower GI hemorrhage 2008 normal colonoscopy Renal cyst Simple right renal Unspecified asthma(493.90) EIA in her 20's Unspecified epilepsy without mention of intractable epilepsy (HCC) Epilepsy, last episode 20 years PAST SURGICAL HISTORY Procedure Laterality Date COLONOSCOPY 09/05/2023 COLONOSCOPY FLX DX W/COLLJ SPEC WHEN PFRMD 10/14/2009 normal COLONOSCOPY FLX DX W/COLLJ SPEC WHEN PFRMD 07/14/2018 Colonoscopy EGD 09/05/2023 ESOPHAGOGASTRODUODENOSCOPY TRANSORAL DIAGNOSTIC 07/14/2018 EGD PAST SURGICAL HISTORY OF 2005 Vein extraction Left Bicep PAST SURGICAL HISTORY OF 2011 Left Endoscopic Sinus Surgery SINUS SURGERY PROC UNLISTED 2001 ALLERGIES Latex, Shellfish, Amoxicillin, Contrast Dye, Doxycycline, Environmental Allergies [Other], Prilosec [Omeprazole], Trileptal [Oxcarbazepine], and Peanut MEDICATIONS Lactobacillus rhamnosus GG (CULTURELLE ORAL) Take by mouth. TEGRETOL XR 200 mg 12 hr tablet Take 1 tablet by mouth twice daily. BRAND. Take with 100 mg strength tabs. TEGRETOL XR 100 mg 12 hr tablet Take 1 tablet by mouth twice daily. Take with 200 mg tablets. albuterol HFA (PROAIR HFA) 90 mcg/actuation inhaler Inhale 2 Puffs as instructed every 6 hours as needed. albuterol (PROVENTIL) 2.5 mg /3 mL (0.083 %) nebulizer solution Use 3 mL via nebulizer every 4 hours as needed for wheezing/shortness of breath. Use over 5-15minutes. zonisamide (ZONEGRAN) 50 mg capsule Take 1 capsule by mouth every morning AND 2 capsules daily at bedtime. MOMETASONE/FORMOTEROL (DULERA INHALATION) Inhale as instructed. EPINEPHrine (EPIPEN 2-DEMI) 0.3 mg/0.3 mL auto-injector Inject 0.3 mL intramuscularly as needed (for allergic reaction.Seek emergent medical care immediately after use.Disp:one 2-pack w/it trainer). fluticasone (FLONASE) 50 mcg/actuation nasal spray Use 2 Sprays in each nostril every morning. Rinse mouth after use. montelukast (SINGULAIR) 10 mg tablet take 1 tablet by mouth at bedtime Cholecalciferol, Vitamin D3, 5,000 unit cap Take 1 capsule by mouth once daily. cetirizine hcl(ZYRTEC 10 MG TAB) Take one(1) tablet daily. FAMILY HISTORY Problem Relation Age of Onset Hypertension Mother Asthma Mother Heart Father Emphysema Father other (Lung Cancer) Father Smoker other (heart attack) Father Social History Tobacco Use Smoking status: Never Passive exposure: Never Smokeless tobacco: Never Vaping Use Vaping Use: Never used Substance Use Topics Alcohol use: No Drug use: No BP 148/78 Pulse 98 Temp 37.3 ?C (99.1 ?F) Resp 18 Wt 76.7 kg (169 lb) SpO2 99% BMI 26.08 kg/m? Review of Systems Constitutional: Positive for malaise/fatigue. Negative for chills and fever. HENT: Positive for congestion and sore throat. Negative for ear discharge, ear pain and sinus pain. Eyes: Negative for blurred vision, pain, discharge and redness. Respiratory: Positive for cough. Negative for hemoptysis, sputum production, shortness of breath, wheezing and stridor. Cardiovascular: Negative for chest pain. Gastrointestinal: Negative for abdominal pain, diarrhea, nausea and vomiting. Musculoskeletal: Positive for myalgias. Skin: Negative for itching and rash. Neurological: Positive for headaches. Negative for dizziness. Objective Physical Exam Constitutional: General: She is not in acute distress. Appearance: She is not diaphoretic. HENT: Head: Normocephalic. Jaw: No trismus, tenderness, swelling or pain on movement. Right Ear: Tympanic membrane, ear canal and external ear normal. Left Ear: Tympanic membrane, ear canal and (more content not included)... [facility] 09-27-2023 Instructions Crow Dave APRN.BRICK CHIMNEY SUPERVISOR - 09/27/2023 5:43 PM EDT How to Manage Common Symptoms Associated with COVID for Adults Fever- Fever is a temperature over 100.4 F and can occur when the body is fighting an infection. To help treat a fever: Drink plenty of fluids and stay well hydrated. Eat small amounts of easy to digest food. Rest. Your body needs rest to recover, but getting up and moving around the house frequently is a good idea. You should try to continue doing your normal daily activities (bathing, toileting, grooming, cooking), though you will probably feel tired, and need to rest often. Avoid any heavy activity or exercise, as this will increase your body temperature. Dress in light clothing and stay covered in a light sheet. Keep the room temperature cool. Take a slightly warm (not cold or cool) bath, or apply damp washcloths to the forehead and wrists. Cough- Cough is a common symptom associated with COVID and can be bothersome. To help treat a cough: Stay well hydrated. Try warm water or tea with lemon and/or honey to help soothe the cough. Use a humidifier to add moisture to the air. Try a product with menthol, like a cough drop or a rub for your chest such as Vicks, which can help reduce cough. Try cough drops. Avoid smoking and other strong odors or perfumes. Try breathing exercises to keep your lungs open and clear. Take a big deep breath through your nose and hold for 5 seconds before slowly releasing. Repeat frequently, while you are awake. Congestion- Runny nose or nasal congestion can occur with COVID. Treatment can help relieve symptoms: Try OTC nasal saline spray, or nasal saline rinse to relieve mucus congestion. Nasal strips can help keep nasal passages open, to increase airflow. Elevating your head with an extra pillow in bed can help reduce congestion. Using a humidifier can increase moisture in the air, and make breathing easier. Sore Throat- Another common symptom with COVID, can be managed at home by: Stay well hydrated. Gargle with salt water - mix teaspoon salt with 1 cup of warm water and gargle. This helps to loosen mucus in the back of the throat and may reduce discomfort. Try ice chips, popsicles or lozenges to soothe the throat. Nausea/Vomiting/Diarrhea- These are common symptoms, and staying hydrated is most important. If you are nauseous or vomiting, start with small sips of water every 10-15 minutes and increase as tolerated. You can try sucking an ice cube too. If tolerating, you can try pedialyte or Gatorade, or flat sprite or prosper-sarah. Start slowly and increase as you are able to. Instead of meals, try smaller, more frequent snacks. Try eating bland foods like crackers, toast, rice, and applesauce. Avoid spicy, greasy or fried foods and dairy containing foods. Even if you aren't feeling hungry due to lack of smell or taste, it is important to try to take in some food when you are able. After drinking and eating, rest in an upright position for up to two hours as needed to help decrease nauseous feelings. Try closing your eyes, avoid moving and watching TV. Avoid strong odors that can make you feel more nauseated. When to seek emergency medical attention Look for emergency warning signs for COVID-19. If having any of these symptoms, seek emergency medical care immediately: Trouble breathing Persistent pain or pressure in the chest New confusion Inability to wake or stay awake Bluish lips or face *This list is not all possible symptoms. Please call your medical provider for any other symptoms that are severe or concerning to you. documented in this encounter [facility] 09-27-2023 History of Present illness Narrative Subjective HPI Nontoxic-appearing female presents to urgent care with chief complaint of upper respiratory tract like infection. Duration of symptoms 1 day. Associated symptoms sore throat, ears clogged, nasal congestion, nasal discharge and nonproductive cough. Patient denies the use of any [id number] medications or home remedies for symptom management. Patient states recent sick contacts with similar signs and symptoms. Patient denies any productive cough, fever, chest pain, shortness of breath, pleuritic pain, rash, abdominal pain, nausea, vomiting or change in bowel or bladder habit. Past medical history prescription medication use allergies reviewed. .Patient presents with: Head Congestion: ST, sinus congestion, ears clogged, cough, chest congestion x1 day PAST MEDICAL HISTORY Diagnosis Date Chronic frontal sinusitis last CT 11/2012: STABLE POSTOPERATIVE CHANGES FROM PRIOR SINONASAL SURGERY. Concussion 07/2013 post-concussive symptoms; 07/2013 and 01/2014 Concussion month of may 2016 Disc degeneration 2012 bulging,cervical GERD (gastroesophageal reflux disease) Dx 2000 Liver cyst multiple hepatic cysts Lower GI hemorrhage 2009 normal colonoscopy Renal cyst Simple right renal Unspecified asthma(493.90) EIA in her 20's Unspecified epilepsy without mention of intractable epilepsy (HCC) Epilepsy, last episode 20 years PAST SURGICAL HISTORY Procedure Laterality Date COLONOSCOPY 09/05/2023 COLONOSCOPY FLX DX W/COLLJ SPEC WHEN PFRMD 10/14/2009 normal COLONOSCOPY FLX DX W/COLLJ SPEC WHEN PFRMD 07/14/2018 Colonoscopy EGD 09/05/2023 ESOPHAGOGASTRODUODENOSCOPY TRANSORAL DIAGNOSTIC 07/14/2018 EGD PAST SURGICAL HISTORY OF 2005 Vein extraction Left Bicep PAST SURGICAL HISTORY OF 2011 Left Endoscopic Sinus Surgery SINUS SURGERY PROC UNLISTED 2001 ALLERGIES Latex, Shellfish, Amoxicillin, Contrast Dye, Doxycycline, Environmental Allergies [Other], Prilosec [Omeprazole], Trileptal [Oxcarbazepine], and Peanut MEDICATIONS Lactobacillus rhamnosus GG (CULTURELLE ORAL) Take by mouth. TEGRETOL XR 200 mg 12 hr tablet Take 1 tablet by mouth twice daily. BRAND. Take with 100 mg strength tabs. TEGRETOL XR 100 mg 12 hr tablet Take 1 tablet by mouth twice daily. Take with 200 mg tablets. albuterol HFA (PROAIR HFA) 90 mcg/actuation inhaler Inhale 2 Puffs as instructed every 6 hours as needed. albuterol (PROVENTIL) 2.5 mg /3 mL (0.083 %) nebulizer solution Use 3 mL via nebulizer every 4 hours as needed for wheezing/shortness of breath. Use over 5-15minutes. zonisamide (ZONEGRAN) 50 mg capsule Take 1 capsule by mouth every morning AND 2 capsules daily at bedtime. MOMETASONE/FORMOTEROL (DULERA INHALATION) Inhale as instructed. EPINEPHrine (EPIPEN 2-DEMI) 0.3 mg/0.3 mL auto-injector Inject 0.3 mL intramuscularly as needed (for allergic reaction.Seek emergent medical care immediately after use.Disp:one 2-pack w/it trainer). fluticasone (FLONASE) 50 mcg/actuation nasal spray Use 2 Sprays in each nostril every morning. Rinse mouth after use. montelukast (SINGULAIR) 10 mg tablet take 1 tablet by mouth at bedtime Cholecalciferol, Vitamin D3, 5,000 unit cap Take 1 capsule by mouth once daily. cetirizine hcl(ZYRTEC 10 MG TAB) Take one(1) tablet daily. FAMILY HISTORY Problem Relation Age of Onset Hypertension Mother Asthma Mother Heart Father Emphysema Father other (Lung Cancer) Father Smoker other (heart attack) Father Social History Tobacco Use Smoking status: Never Passive exposure: Never Smokeless tobacco: Never Vaping Use Vaping Use: Never used Substance Use Topics Alcohol use: No Drug use: No BP 148/78 Pulse 98 Temp 37.3 C (99.1 F) Resp 18 Wt 76.7 kg (169 lb) SpO2 99% BMI 26.08 kg/m Review of Systems Constitutional: Positive for malaise/fatigue. Negative for chills and fever. HENT: Positive for congestion and sore throat. Negative for ear discharge, ear pain and sinus pain. Eyes: Negative for blurred vision, pain, discharge and redness. Respiratory: Positive for cough. Negative for hemoptysis, sputum production, shortness of breath, wheezing and stridor. Cardiovascular: Negative for chest pain. Gastrointestinal: Negative for abdominal pain, diarrhea, nausea and vomiting. Musculoskeletal: Positive for myalgias. Skin: Negative for itching and rash. Neurological: Positive for headaches. Negative for dizziness. Objective Physical Exam Constitutional: General: She is not in acute distress. Appearance: She is not diaphoretic. HENT: Head: Normocephalic. Jaw: No trismus, tenderness, swelling or pain on movement. Right Ear: Tympanic membrane, ear canal and external ear normal. Left Ear: Tympanic membrane, ear canal and external ear normal. Nose: Congestion present. Mouth/Throat: Mouth: Mucous membranes are moist. Pharynx: Oropharynx is clear. Uvula midline. No pharyngeal swelling, oropharyngeal exudate, posterior oropharyngeal erythema or uvula swelling. Eyes: Conjunctiva/sclera: Conjunctivae normal. Pupils: Pupils are equal, round, and reactive to light. Cardiovascular: Rate and Rhythm: Normal rate and regular rhythm. Heart sounds: Normal heart sounds. Pulmonary: Effort: Pulmonary effort is normal. No tachypnea, accessory muscle usage or respiratory distress. Breath sounds: Normal breath sounds. No stridor. No wheezing, rhonchi or rales. Abdominal: General: There is no distension. Palpations: Abdomen is soft. Tenderness: There is no abdominal tenderness. There is no guarding or rebound. Musculoskeletal: Cervical back: Normal range of motion and neck supple. No edema, erythema, rigidity or tenderness. No pain with movement. Normal range of motion. Lymphadenopathy: Cervical: No cervical adenopathy. Skin: General: Skin is warm and dry. Neurological: Mental Status: She is alert and oriented to person, place, and time. ASSESSMENT/PLAN: 1. Viral illness - ICD9: 079.99, ICD10: B34.9 - Discussed viral etiology and rationale for treatment. - Symptomatic treatment with prn analgesia - Supportive care with fluids and rest - COVID & INFLUENZA A/B NAAT, ROUTINE Patient was educated on supportive therapies. Patient will follow up with primary care provider as needed. Patient was instructed to immediately proceed to emergency room for any new, worsening, or symptoms lasting longer than anticipated. The patient's clinical presentation is otherwise unremarkable at this time. Based on exam and clinical finding, the patient is stable for discharge. Plan of care was discussed with patient. Patient verbalizes understanding and agrees to plan of care. This note was generated using Checkr software. It may contain errors in wording, punctuation, or spelling. Crow Dave APRN.BRICK CHIMNEY SUPERVISOR documented in this encounter [facility] 09-27-2023 Miscellaneous Notes Pt calling in and states she feels like she has a sinus infection and has a sore throat. Wondering what she can take OTC. Instructed she can try meds with Dextromethorphan. But pt highly encouraged to go to [facility] if she thinks she has a sinus infection. Pt instructed they are open until 8 pm tonight. It appears pt is agreeable and will go to [facility]. documented in this encounter [facility] 09-12-2023 Note HNO ID: [id number] Author: Neisha Chino PA-C Service: ? Author Type: Physician Order Fulfillment Specialist Type: Progress Notes Filed: 09/17/2023 11:57 AM Note Text: FOLLOW UP VISIT - ENDOSCOPY NAME: Maddie [facility] NO.: [id number] DATE OF SERVICE: 09/12/2023 : 1970 REFERRING PHYSICIAN: Martha Bates MD Maddie is a patient I am following for GERD, as well as need for surveillance colonoscopy due to history of adenomatous polyp. Dr. Valentin performed upper and lower endoscopy at [facility] on 09/05/23. The patient was found to have minimally irregular junction and a small hiatal hernia. Colonoscopy showed hemorrhoids, no polyps or concerning findings. Pathology demonstrated: FINAL DIAGNOSIS A. Stomach, antrum, biopsy: - Benign gastric mucosa with features of mild reactive gastropathy. See comment. B. Gastroesophageal junction, biopsies: - Fragments of benign gastric mucosa with chronic and very focal acute inflammation and fragments of benign squamous epithelium. See comment. Diagnosis Comment There are no histologic features in the gastric biopsy to suggest Helicobacter pylori infection. There is no evidence of intestinal metaplasia in the gastroesophageal junction biopsy. Gross Description A. ANTRUM (STOMACH) BIOPSY Received in formalin labeled antrum stomach biopsy are 2 irregular gonzalez soft tissue fragments aggregating to 0.2 x 0.2 x 0.1 cm. The specimen is submitted entirely in A1. B. ESOPHAGOGASTRIC JUNCTION BIOPSY Received in formalin labeled esophagogastric junction biopsy are 2 irregular gonzalez soft tissue fragments aggregating to 0.2 x 0.2 x 0.2 cm. The specimen is submitted entirely in B1. Gross examination performed at [facility], [address] [place] [address] CLIA#[id number] OLS September 06, 2023 12:03 PM The patient notes she had significant nausea during bowel prep. VITALS: Blood pressure 124/82, pulse 78, temperature 36.1 ?C (97 ?F), height 171.5 cm (5' 7.5 ), weight 75.8 kg (167 lb), SpO2 98 %. General: patient is alert, cooperative, pleasant and in no acute distress On examination, the abdomen is benign. Assessment IMPRESSION: GERD and mild gastropathy, small hiatal hernia. Normal colonoscopy, prior history of adenomatous polyp PLAN: The operative findings and pathology report were reviewed with the patient, and the patient has had the opportunity to ask questions and have questions answered. If the patient notes any problems or changes in bowel function, the patient should contact me immediately. -Reviewed dietary and lifestyle modifications for reflux and hiatal hernia. Follow up if symptoms worsen despite these measures -Repeat colonoscopy in 5 years based on previous polyp history -Will plan for antiemetic with bowel prep for next colonoscopy Patient verbalized understanding of all above and agreed with the plan Diagnoses: (Z86.010) History of colonic polyps (primary encounter diagnosis) (K21.00) Gastroesophageal reflux disease with esophagitis without hemorrhage (K44.9) Hiatal hernia I spent a total of 24 minutes on the date of the service which included preparing to see the patient, [id number] patient care, completing clinical documentation, obtaining and/or reviewing separately obtained history, counseling and educating the patient/family/caregiver, independently interpreting results (not separately reported), and communicating results to the patient/family/caregiver. Neisha Chino PA-C [facility] 09-12-2023 Instructions Neisha Chino PA-C - 09/12/2023 4:16 PM EDT -Dietary and lifestyle modifications as discussed for reflux and hiatal hernia The following instructions are important for you related to your office visit today with the [facility]. INSTRUCTIONS FOLLOWING NORMAL COLONOSCOPY WITH HISTORY OF POLYPS You were found to have a normal colon without concerning findings. I recommend you undergo repeat endoscopy in 5 years based on prior history of adenomatous polyp. If you note bleeding, change in bowel habits, or other suspicious colon related symptoms before that time, those symptoms should be evaluated as necessary. If you have any difficulties or concerns, you should contact our office immediately. INSTRUCTIONS FOR PEPTIC ULCER DISEASE - ESOPHAGITIS I discussed with you the findings of your upper endoscopy. Your upper endoscopy demonstrated esophagitis Esophagitis may be a form of peptic irritation, with acid moving from the stomach to the esophagus (gastroesophageal reflux) Factors that increase acid production include smoking and stress. If you smoke, stopping smoking will often cure these issues without needing other medications. Over the counter medications including antiacids and acid reducing medications including H2 blockers (Zantac and the like) and proton pump inhibitors (prilosec, prevacid and the like) neutralize or prevent acid production. Prescription strength proton pump inhibitors (PPIs) may be necessary if your symptoms persist. Carafate may be added to PPI treatment in refractory cases. Avoiding smoking, alcohol and antiinflammatory medications are important in the successful treatment of reflux esophagitis and peptic diseases. Other factors that contribute to GERD and esophagitis are being overweight, eating large meals before laying down and certain foods. Weight loss will help improve many GERD complaints. Remaining upright after eating large meals and having a small supper will also help symptoms. Avoiding food that contribute to reflux - chocolate, caffeine, cheddar cheese may also help. Follow up upper endoscopy may be recommended to assure healing of the esophagus. New or worsening symptoms such are epigastric pain, burning, difficulty swallowing or food sticking should be relayed to your physician. Feeling full early after eating, or black, tarry, foul smelling stools are also worrisome. If you have any difficulties or concerns, you should contact our office immediately. If you note any additional difficulties, questions, or concerns, you should contact our office immediately @ [phone] and ask to be transferred to the General Surgery department. documented in this encounter [facility] 09-12-2023 History of Present illness Narrative FOLLOW UP VISIT - ENDOSCOPY NAME: Maddie [facility] NO.: [id number] DATE OF SERVICE: 09/12/2023 : 1970 REFERRING PHYSICIAN: Martha Bates MD Maddie is a patient I am following for GERD, as well as need for surveillance colonoscopy due to history of adenomatous polyp. Dr. Valentin performed upper and lower endoscopy at [facility] on 09/05/23. The patient was found to have minimally irregular junction and a small hiatal hernia. Colonoscopy showed hemorrhoids, no polyps or concerning findings. Pathology demonstrated: FINAL DIAGNOSIS A. Stomach, antrum, biopsy: - Benign gastric mucosa with features of mild reactive gastropathy. See comment. B. Gastroesophageal junction, biopsies: - Fragments of benign gastric mucosa with chronic and very focal acute inflammation and fragments of benign squamous epithelium. See comment. Diagnosis Comment There are no histologic features in the gastric biopsy to suggest Helicobacter pylori infection. There is no evidence of intestinal metaplasia in the gastroesophageal junction biopsy. Gross Description A. ANTRUM (STOMACH) BIOPSY Received in formalin labeled antrum stomach biopsy are 2 irregular gonzalez soft tissue fragments aggregating to 0.2 x 0.2 x 0.1 cm. The specimen is submitted entirely in A1. B. ESOPHAGOGASTRIC JUNCTION BIOPSY Received in formalin labeled esophagogastric junction biopsy are 2 irregular gonzalez soft tissue fragments aggregating to 0.2 x 0.2 x 0.2 cm. The specimen is submitted entirely in B1. Gross examination performed at [facility], [address] [place] [address] CLIA#[id number] OLS September 06, 2023 12:03 PM The patient notes she had significant nausea during bowel prep. VITALS: Blood pressure 124/82, pulse 78, temperature 36.1 C (97 F), height 171.5 cm (5' 7.5 ), weight 75.8 kg (167 lb), SpO2 98 %. General: patient is alert, cooperative, pleasant and in no acute distress On examination, the abdomen is benign. Assessment IMPRESSION: GERD and mild gastropathy, small hiatal hernia. Normal colonoscopy, prior history of adenomatous polyp PLAN: The operative findings and pathology report were reviewed with the patient, and the patient has had the opportunity to ask questions and have questions answered. If the patient notes any problems or changes in bowel function, the patient should contact me immediately. -Reviewed dietary and lifestyle modifications for reflux and hiatal hernia. Follow up if symptoms worsen despite these measures -Repeat colonoscopy in 5 years based on previous polyp history -Will plan for antiemetic with bowel prep for next colonoscopy Patient verbalized understanding of all above and agreed with the plan Diagnoses: (Z86.010) History of colonic polyps (primary encounter diagnosis) (K21.00) Gastroesophageal reflux disease with esophagitis without hemorrhage (K44.9) Hiatal hernia I spent a total of 24 minutes on the date of the service which included preparing to see the patient, [id number] patient care, completing clinical documentation, obtaining and/or reviewing separately obtained history, counseling and educating the patient/family/caregiver, independently interpreting results (not separately reported), and communicating results to the patient/family/caregiver. Neisha Chino PA-C documented in this encounter [facility] 08-07-2023 Note HNO ID: [id number] Author: Tawny Ayala MD Service: ? Author Type: Physician Type: Progress Notes Filed: 08/07/2023 4:55 PM Note Text: General Surgery Consult Note PATIENT NAME: Maddie Mcallister Consultation requested by Roz Harris APRN for an opinion regarding right axillary mass. My final recommendations will be communicated back to the requesting physician by way of shared Medical record or letter to requesting physician via US mail. Assessment ASSESSMENT/PLAN: (L72.9) Skin cyst (primary encounter diagnosis) Maddie presents for evaluation of a right axillary mass. She has a benign sebaceous cyst of the skin. There is no evidence for malignancy. No further work-up or excision needed. She is comfortable with this plan. She can return to see me as needed. No orders found for this visit on 08/07/23. SUBJECTIVE CHIEF COMPLAINT: Patient presents with: Mass: Axillary mass (right) INTERVAL HISTORY OF PRESENT ILLNESS: Maddie is a 53-year-old female who on July 21 noticed a marble sized lump in her right axilla. It seemed to increase and decrease in size. There has never been drainage. She was seen by primary care. Mammogram and ultrasound were performed which were normal. Because of the concern with its location she was referred for surgical evaluation. HISTORIES: PAST MEDICAL HISTORY Diagnosis Date Chronic frontal sinusitis last CT 11/2012: STABLE POSTOPERATIVE CHANGES FROM PRIOR SINONASAL SURGERY. Concussion 07/2013 post-concussive symptoms; 07/2013 and 01/2014 Concussion month of may 2016 Disc degeneration 2011 bulging,cervical GERD (gastroesophageal reflux disease) Dx 1999 Liver cyst multiple hepatic cysts Lower GI hemorrhage 2008 normal colonoscopy Renal cyst Simple right renal Unspecified asthma(493.90) EIA in her 20's Unspecified epilepsy without mention of intractable epilepsy Epilepsy, last episode 20 years PAST SURGICAL HISTORY Procedure Laterality Date COLONOSCOPY FLX DX W/COLLJ SPEC WHEN PFRMD normal COLONOSCOPY FLX DX W/COLLJ SPEC WHEN PFRMD 07/14/2018 Colonoscopy ESOPHAGOGASTRODUODENOSCOPY TRANSORAL DIAGNOSTIC 07/14/2018 EGD PAST SURGICAL HISTORY OF 2005 Vein extraction Left Bicep PAST SURGICAL HISTORY OF 2011 Left Endoscopic Sinus Surgery SINUS SURGERY PROC UNLISTED 2001 ALLERGIES: Latex, Amoxicillin, Contrast Dye, Doxycycline, Environmental Allergies [Other], Prilosec [Omeprazole], Shellfish, Trileptal [Oxcarbazepine], and Peanut MEDICATIONS: Current Outpatient Medications Medication Sig Lactobacillus rhamnosus GG (CULTURELLE ORAL) Take by mouth. TEGRETOL XR 200 mg 12 hr tablet Take 1 tablet by mouth twice daily. BRAND. Take with 100 mg strength tabs. TEGRETOL XR 100 mg 12 hr tablet Take 1 tablet by mouth twice daily. Take with 200 mg tablets. albuterol HFA (PROAIR HFA) 90 mcg/actuation inhaler Inhale 2 Puffs as instructed every 6 hours as needed. albuterol (PROVENTIL) 2.5 mg /3 mL (0.083 %) nebulizer solution Use 3 mL via nebulizer every 4 hours as needed for wheezing/shortness of breath. Use over 5-15minutes. zonisamide (ZONEGRAN) 50 mg capsule Take 1 capsule by mouth every morning AND 2 capsules daily at bedtime. MOMETASONE/FORMOTEROL (DULERA INHALATION) Inhale as instructed. EPINEPHrine (EPIPEN 2-DEMI) 0.3 mg/0.3 mL auto-injector Inject 0.3 mL intramuscularly as needed (for allergic reaction.Seek emergent medical care immediately after use.Disp:one 2-pack w/it trainer). fluticasone (FLONASE) 50 mcg/actuation nasal spray Use 2 Sprays in each nostril every morning. Rinse mouth after use. montelukast (SINGULAIR) 10 mg tablet take 1 tablet by mouth at bedtime Cholecalciferol, Vitamin D3, 5,000 unit cap Take 1 capsule by mouth once daily. cetirizine hcl(ZYRTEC 10 MG TAB) Take one(1) tablet daily. No current facility-administered medications for this visit. FAMILY HISTORY Problem Relation Age of Onset Hypertension Mother Asthma Mother Heart Father Emphysema Father other (Lung Cancer) Father Smoker other (heart attack) Father Social History Tobacco Use Smoking status: Never Passive exposure: Never Smokeless tobacco: Never Vaping Use Vaping Use: Never used Substance Use Topics Alcohol use: No Drug use: No OBJECTIVE PHYSICAL EXAM: BP 144/88 Pulse 83 Resp 16 Ht 5' 6.5 (1.69m) Wt 166 lb (75.3kg) BMI 26.39 kg/(m2). General: Well developed, well-nourished, female in no distress HEENT: Normocephalic, atraumatic. Extraocular movements intact. Sclera are nonicteric. Breasts: No dominant masses, no discharge, no skin or nipple change, no palpable axillary adenopathy bilaterally Heart: Regular rate and rhythm, no murmur Lungs: Clear to auscultation without wheezes Extremities: Along the right axillary skin is a 7 mm skin cyst without evidence for infection. This is not below the clavipectoral fascia and does not represen (more content not included)... [facility] 08-07-2023 History of Present illness Narrative General Surgery Consult Note PATIENT NAME: Maddie Mcallister Consultation requested by Roz Harris APRN for an opinion regarding right axillary mass. My final recommendations will be communicated back to the requesting physician by way of shared Medical record or letter to requesting physician via US mail. Assessment ASSESSMENT/PLAN: (L72.9) Skin cyst (primary encounter diagnosis) Maddie presents for evaluation of a right axillary mass. She has a benign sebaceous cyst of the skin. There is no evidence for malignancy. No further work-up or excision needed. She is comfortable with this plan. She can return to see me as needed. No orders found for this visit on 08/07/23. SUBJECTIVE CHIEF COMPLAINT: Patient presents with: Mass: Axillary mass (right) INTERVAL HISTORY OF PRESENT ILLNESS: Maddie is a 53-year-old female who on July 21 noticed a marble sized lump in her right axilla. It seemed to increase and decrease in size. There has never been drainage. She was seen by primary care. Mammogram and ultrasound were performed which were normal. Because of the concern with its location she was referred for surgical evaluation. HISTORIES: PAST MEDICAL HISTORY Diagnosis Date Chronic frontal sinusitis last CT 11/2012: STABLE POSTOPERATIVE CHANGES FROM PRIOR SINONASAL SURGERY. Concussion 07/2013 post-concussive symptoms; 07/2013 and 01/2014 Concussion month of may 2016 Disc degeneration 2012 bulging,cervical GERD (gastroesophageal reflux disease) Dx 2000 Liver cyst multiple hepatic cysts Lower GI hemorrhage 2009 normal colonoscopy Renal cyst Simple right renal Unspecified asthma(493.90) EIA in her 20's Unspecified epilepsy without mention of intractable epilepsy Epilepsy, last episode 20 years PAST SURGICAL HISTORY Procedure Laterality Date COLONOSCOPY FLX DX W/COLLJ SPEC WHEN PFRMD normal COLONOSCOPY FLX DX W/COLLJ SPEC WHEN PFRMD 07/14/2018 Colonoscopy ESOPHAGOGASTRODUODENOSCOPY TRANSORAL DIAGNOSTIC 07/14/2018 EGD PAST SURGICAL HISTORY OF 2005 Vein extraction Left Bicep PAST SURGICAL HISTORY OF 2011 Left Endoscopic Sinus Surgery SINUS SURGERY PROC UNLISTED 2001 ALLERGIES: Latex, Amoxicillin, Contrast Dye, Doxycycline, Environmental Allergies [Other], Prilosec [Omeprazole], Shellfish, Trileptal [Oxcarbazepine], and Peanut MEDICATIONS: Current Outpatient Medications Medication Sig Lactobacillus rhamnosus GG (CULTURELLE ORAL) Take by mouth. TEGRETOL XR 200 mg 12 hr tablet Take 1 tablet by mouth twice daily. BRAND. Take with 100 mg strength tabs. TEGRETOL XR 100 mg 12 hr tablet Take 1 tablet by mouth twice daily. Take with 200 mg tablets. albuterol HFA (PROAIR HFA) 90 mcg/actuation inhaler Inhale 2 Puffs as instructed every 6 hours as needed. albuterol (PROVENTIL) 2.5 mg /3 mL (0.083 %) nebulizer solution Use 3 mL via nebulizer every 4 hours as needed for wheezing/shortness of breath. Use over 5-15minutes. zonisamide (ZONEGRAN) 50 mg capsule Take 1 capsule by mouth every morning AND 2 capsules daily at bedtime. MOMETASONE/FORMOTEROL (DULERA INHALATION) Inhale as instructed. EPINEPHrine (EPIPEN 2-DEMI) 0.3 mg/0.3 mL auto-injector Inject 0.3 mL intramuscularly as needed (for allergic reaction.Seek emergent medical care immediately after use.Disp:one 2-pack w/it trainer). fluticasone (FLONASE) 50 mcg/actuation nasal spray Use 2 Sprays in each nostril every morning. Rinse mouth after use. montelukast (SINGULAIR) 10 mg tablet take 1 tablet by mouth at bedtime Cholecalciferol, Vitamin D3, 5,000 unit cap Take 1 capsule by mouth once daily. cetirizine hcl(ZYRTEC 10 MG TAB) Take one(1) tablet daily. No current facility-administered medications for this visit. FAMILY HISTORY Problem Relation Age of Onset Hypertension Mother Asthma Mother Heart Father Emphysema Father other (Lung Cancer) Father Smoker other (heart attack) Father Social History Tobacco Use Smoking status: Never Passive exposure: Never Smokeless tobacco: Never Vaping Use Vaping Use: Never used Substance Use Topics Alcohol use: No Drug use: No OBJECTIVE PHYSICAL EXAM: BP 144/88 Pulse 83 Resp 16 Ht 5' 6.5 (1.69m) Wt 166 lb (75.3kg) BMI 26.39 kg/(m^2). General: Well developed, well-nourished, female in no distress HEENT: Normocephalic, atraumatic. Extraocular movements intact. Sclera are nonicteric. Breasts: No dominant masses, no discharge, no skin or nipple change, no palpable axillary adenopathy bilaterally Heart: Regular rate and rhythm, no murmur Lungs: Clear to auscultation without wheezes Extremities: Along the right axillary skin is a 7 mm skin cyst without evidence for infection. This is not below the clavipectoral fascia and does not represent a lymph node. Neurologic: Alert, oriented, and appropriate. Neurologic exam is symmetric and nonfocal. DATA: Diagnostic tests reviewed for today's visit: Mammogram and ultrasound results were reviewed and are negative. Tawny Ayala MD documented in this encounter [facility] 07-30-2023 Miscellaneous Notes Please file order for bilateral diagnostic mammogram. Last bilateral was 01/10/23.Due for bilateral. Thank you. documented in this encounter [facility] 07-23-2023 Miscellaneous Notes Faxed demographics, US right breast, Meggan diagnostic right, to [facility] plate washer, per patient request. documented in this encounter [facility] 07-22-2023 Note HNO ID: [id number] Author: Roz Harris APRN.SOCIOLOGY TEACHER Service: ? Author Type: Nurse Specialist Type: Progress Notes Filed: 07/22/2023 7:58 AM Note Text: Subjective HPI Maddie Mcallister is a 51 year old female. PMH significant for ACTIVE PROBLEM LIST HIGH BLOOD PRESSURE-NO HYPERTENSN Epilepsy (Hcc) Allergic Rhinitis Toxic Effect of Latex(989.82) Toxic Effect of Fish and Shellfish(988.0) INTRADERMAL NEVUS MOLE//BENIGN YONY SCALP/SKIN NECK Rosacea NEVOCELLULAR NEVI MOLES///BENIGN YONY SKIN TRUNK Blood in Stool Extrinsic Asthma Disorders of Bursae and Tendons in Shoulder Region, Unspecified Sacroiliac Dysfunction Chronic Sinusitis Unspecified Sinusitis (Chronic) Cervicalgia Voice Disturbance Hyperlipidemia Encounter for Long-Term (Current) Use of Medications Notes lump under right arm since yesterday. Reports no pain in right axilla. Notes nodular, visible, soft. She reports a right ear infection last week that resolved. No current illness or fever. Notes no palpable breast michelle right. Notes prior vein surgery in left axilla at [facility] in the past. Notes left sided pain present since May. Sharp pain with movement. Intermittent, brief, with twisting motion or hiccups. Breathing is at baseline. No mid back pain. Not needing medication for this Stable shortness of breath and cough while working in [place] recently. Reports arthroscopic surgery a couple of weeks ago. Dr Rodriguez [facility], left meniscectomy. Has physical therapy scheduled for her knee. [facility]. Review of Systems Respiratory: Positive for cough and shortness of breath. Musculoskeletal: Positive for arthralgias. Hematological: Positive for adenopathy. Objective BP 120/82 Pulse 77 Resp 16 Wt 73.9 kg (163 lb) SpO2 97% BMI 25.53 kg/m? Physical Exam Vitals and nursing note reviewed. HENT: Head: Normocephalic and atraumatic. Eyes: Conjunctiva/sclera: Conjunctivae normal. Cardiovascular: Rate and Rhythm: Normal rate. Pulmonary: Effort: Pulmonary effort is normal. Musculoskeletal: Thoracic back: No spasms or tenderness. Normal range of motion. Lymphadenopathy: Upper Body: Right upper body: Axillary adenopathy present. Comments: soft oval mobile mass, visible posterior aspect axillae, ~1 diam Skin: General: Skin is warm and dry. Neurological: General: No focal deficit present. Mental Status: She is oriented to person, place, and time. ALLERGIES Allergen Reactions Latex Rash Amoxicillin Hives Contrast Dye GI Upset [place] warm Doxycycline GI Upset Environmental Aller* Other: See Comments Cats, dogs, dust mites, molds, trees, grasses, weeds, ragweed Prilosec [Omeprazol* Contraindication-Medical Surgical Adverse reaction with tegretol Shellfish Other: See Comments Crab, scallop, oyster. Shrimp with exercise causes her throat to swell Trileptal [Oxcarbaz* Sodium level decreases Current Outpatient Medications Medication Sig Lactobacillus rhamnosus GG (CULTURELLE ORAL) Take by mouth. TEGRETOL XR 200 mg 12 hr tablet Take 1 tablet by mouth twice daily. BRAND. Take with 100 mg strength tabs. TEGRETOL XR 100 mg 12 hr tablet Take 1 tablet by mouth twice daily. Take with 200 mg tablets. albuterol HFA (PROAIR HFA) 90 mcg/actuation inhaler Inhale 2 Puffs as instructed every 6 hours as needed. albuterol (PROVENTIL) 2.5 mg /3 mL (0.083 %) nebulizer solution Use 3 mL via nebulizer every 4 hours as needed for wheezing/shortness of breath. Use over 5-15minutes. zonisamide (ZONEGRAN) 50 mg capsule Take 1 capsule by mouth every morning AND 2 capsules daily at bedtime. MOMETASONE/FORMOTEROL (DULERA INHALATION) Inhale as instructed. EPINEPHrine (EPIPEN 2-DEMI) 0.3 mg/0.3 mL auto-injector Inject 0.3 mL intramuscularly as needed (for allergic reaction.Seek emergent medical care immediately after use.Disp:one 2-pack w/it trainer). fluticasone (FLONASE) 50 mcg/actuation nasal spray Use 2 Sprays in each nostril every morning. Rinse mouth after use. montelukast (SINGULAIR) 10 mg tablet take 1 tablet by mouth at bedtime Cholecalciferol, Vitamin D3, 5,000 unit cap Take 1 capsule by mouth once daily. cetirizine hcl(ZYRTEC 10 MG TAB) Take one(1) tablet daily. No current facility-administered medications for this visit. PAST MEDICAL HISTORY Diagnosis Date Chronic frontal sinusitis last CT 11/2012: STABLE POSTOPERATIVE CHANGES FROM PRIOR SINONASAL SURGERY. Concussion 07/2013 post-concussive symptoms; 07/2013 and 01/2014 Concussion month of may 2016 Disc degeneration 2012 bulging,cervical GERD (gastroesophageal reflux disease) Dx 2000 Liver cyst multiple hepatic cysts Lower GI hemorrhage 2008 normal colonoscopy Renal cyst Simple right renal Unspecified asthma(493.90) EIA in her 20's Unspecified epilepsy without mention of intractable epilepsy Epilepsy, last episode 20 years reports th (more content not included)... [facility] 07-22-2023 History of Present illness Narrative Subjective HPI Maddie Mcallister is a 51 year old female. PMH significant for ACTIVE PROBLEM LIST HIGH BLOOD PRESSURE-NO HYPERTENSN Epilepsy (Hcc) Allergic Rhinitis Toxic Effect of Latex(989.82) Toxic Effect of Fish and Shellfish(988.0) INTRADERMAL NEVUS MOLE//BENIGN YONY SCALP/SKIN NECK Rosacea NEVOCELLULAR NEVI MOLES///BENIGN YONY SKIN TRUNK Blood in Stool Extrinsic Asthma Disorders of Bursae and Tendons in Shoulder Region, Unspecified Sacroiliac Dysfunction Chronic Sinusitis Unspecified Sinusitis (Chronic) Cervicalgia Voice Disturbance Hyperlipidemia Encounter for Long-Term (Current) Use of Medications Notes lump under right arm since yesterday. Reports no pain in right axilla. Notes nodular, visible, soft. She reports a right ear infection last week that resolved. No current illness or fever. Notes no palpable breast michelle right. Notes prior vein surgery in left axilla at [facility] in the past. Notes left sided pain present since May. Sharp pain with movement. Intermittent, brief, with twisting motion or hiccups. Breathing is at baseline. No mid back pain. Not needing medication for this Stable shortness of breath and cough while working in [place] recently. Reports arthroscopic surgery a couple of weeks ago. Dr Rodriguez [facility], left meniscectomy. Has physical therapy scheduled for her knee. [facility]. Review of Systems Respiratory: Positive for cough and shortness of breath. Musculoskeletal: Positive for arthralgias. Hematological: Positive for adenopathy. Objective BP 120/82 Pulse 77 Resp 16 Wt 73.9 kg (163 lb) SpO2 97% BMI 25.53 kg/m Physical Exam Vitals and nursing note reviewed. HENT: Head: Normocephalic and atraumatic. Eyes: Conjunctiva/sclera: Conjunctivae normal. Cardiovascular: Rate and Rhythm: Normal rate. Pulmonary: Effort: Pulmonary effort is normal. Musculoskeletal: Thoracic back: No spasms or tenderness. Normal range of motion. Lymphadenopathy: Upper Body: Right upper body: Axillary adenopathy present. Comments: soft oval mobile mass, visible posterior aspect axillae, ~1 diam Skin: General: Skin is warm and dry. Neurological: General: No focal deficit present. Mental Status: She is oriented to person, place, and time. ALLERGIES Allergen Reactions Latex Rash Amoxicillin Hives Contrast Dye GI Upset [place] warm Doxycycline GI Upset Environmental Aller* Other: See Comments Cats, dogs, dust mites, molds, trees, grasses, weeds, ragweed Prilosec [Omeprazol* Contraindication-Medical Surgical Adverse reaction with tegretol Shellfish Other: See Comments Crab, scallop, oyster. Shrimp with exercise causes her throat to swell Trileptal [Oxcarbaz* Sodium level decreases Current Outpatient Medications Medication Sig Lactobacillus rhamnosus GG (CULTURELLE ORAL) Take by mouth. TEGRETOL XR 200 mg 12 hr tablet Take 1 tablet by mouth twice daily. BRAND. Take with 100 mg strength tabs. TEGRETOL XR 100 mg 12 hr tablet Take 1 tablet by mouth twice daily. Take with 200 mg tablets. albuterol HFA (PROAIR HFA) 90 mcg/actuation inhaler Inhale 2 Puffs as instructed every 6 hours as needed. albuterol (PROVENTIL) 2.5 mg /3 mL (0.083 %) nebulizer solution Use 3 mL via nebulizer every 4 hours as needed for wheezing/shortness of breath. Use over 5-15minutes. zonisamide (ZONEGRAN) 50 mg capsule Take 1 capsule by mouth every morning AND 2 capsules daily at bedtime. MOMETASONE/FORMOTEROL (DULERA INHALATION) Inhale as instructed. EPINEPHrine (EPIPEN 2-DEMI) 0.3 mg/0.3 mL auto-injector Inject 0.3 mL intramuscularly as needed (for allergic reaction.Seek emergent medical care immediately after use.Disp:one 2-pack w/it trainer). fluticasone (FLONASE) 50 mcg/actuation nasal spray Use 2 Sprays in each nostril every morning. Rinse mouth after use. montelukast (SINGULAIR) 10 mg tablet take 1 tablet by mouth at bedtime Cholecalciferol, Vitamin D3, 5,000 unit cap Take 1 capsule by mouth once daily. cetirizine hcl(ZYRTEC 10 MG TAB) Take one(1) tablet daily. No current facility-administered medications for this visit. PAST MEDICAL HISTORY Diagnosis Date Chronic frontal sinusitis last CT 11/2012: STABLE POSTOPERATIVE CHANGES FROM PRIOR SINONASAL SURGERY. Concussion 07/2013 post-concussive symptoms; 07/2013 and 01/2014 Concussion month of may 2016 Disc degeneration 2011 bulging,cervical GERD (gastroesophageal reflux disease) Dx 2000 Liver cyst multiple hepatic cysts Lower GI hemorrhage 2008 normal colonoscopy Renal cyst Simple right renal Unspecified asthma(493.90) EIA in her 20's Unspecified epilepsy without mention of intractable epilepsy Epilepsy, last episode 20 years reports that she has never smoked. She has never used smokeless tobacco. She reports that she does not drink alcohol and does not use drugs. Component Latest Ref Rng & Units 08/22/2021 09/25/2021 04/16/2022 Protein, Total 6.3 - 8.0 g/dL 6.9 6.8 Albumin 3.9 - 4.9 g/dL 4.5 4.6 Calcium 8.5 - 10.2 mg/dL 9.2 8.9 Bilirubin, Total 0.2 - 1.3 mg/dL 0.3 0.2 Alkaline Phosphatase 34 - 123 U/L 82 85 AST 13 - 35 U/L 16 16 Glucose 74 - 99 mg/dL 97 104 (H) BUN 7 - 21 mg/dL 12 17 Creatinine 0.58 - 0.96 mg/dL 0.91 0.93 Sodium 136 - 144 mmol/L 139 142 Potassium 3.7 - 5.1 mmol/L 4.3 4.0 Chloride 97 - 105 mmol/L 105 107 (H) CO2 22 - 30 mmol/L 23 22 Anion Gap 9 - 18 mmol/L 11 13 ALT 7 - 38 U/L 15 15 eGFR- >60 eGFR-All Other Races . >60 eGFR >=60 mL/min/1.73m 74 Cortisol 4.8 - 19.5 ug/dL 12.8 Zonisamide 10.0 - 40.0 ug/mL 11.7 9.5 (L) Carbamazepine, Free 0.8 - 2.4 ug/mL 1.8 2.0 Carbamazepine 4.0 - 12.0 ug/mL 9.7 10.1 ASSESSMENT/PLAN: 1. Axillary mass, right - ICD9: 782.2, ICD10: R22.31 (primary diagnosis) This may be a lymph node related to her prior ear infection on the right side. Complete imaging to exclude other processes. Follow up if not resolved in the next week or so. - [facility] RIGHT - US BREAST LTD RIGHT 2. Muscle strain - ICD9: 848.9, ICD10: T14.8XXA She notes recently has been doing some heavy lifting. Does have coughing due to asthma. Left lateral thoracic region, will discuss with physical therapy when she goes for her knee. Not needing medication, defers for now. Endorse avoiding painful activities as able 3. S/P arthroscopic surgery of left knee - ICD9: V45.89, ICD10: Z98.890 Left meniscectomy. Completed at [facility], has upcoming physical therapy. Schedule follow up visit with Martha Bates MD Terri Brooks, APRN.SOCIOLOGY TEACHER Medical Decision Making: Problems: Low: 2+ self-limited or minor problems Data: Unique test(s) ordered: 2 Medical Decision Making Level: 3 - Low documented in this encounter [facility] 07-03-2023 Miscellaneous Notes 04/10/23 message to patient by Jackson Lomeli. PA: So sorry for the delay in response Maddie! I took a look - hemoglobin A1C was slightly elevated, which we would just stick to the plan of diet/exercise, which should bring that down over the next couple months. I am placing the repeat order for that in 3 months, ~ 07/04/2023. I would wait an see what happens with your creatinine at that time. I am not super concerned with your current level (especially since your BUN and GFR are normal), but I also want to see it go down. If it doesn't also decrease to normal range within the 3 months then we would want to revisit options/further investigate. So I placed a repeat level for that also. Hope you have a good end of the semester and nice summer - stay hydrated and keep me posted if you need anything Thanks! Madelaine Patient concern routed for review. Paola Kerr RN documented in this encounter [facility] 05-10-2023 Note HNO ID: [id number] Author: Neisha Chino PA-C Service: ? Author Type: Physician Order Fulfillment Specialist Type: Progress Notes Filed: 05/19/2023 10:11 PM Note Text: HISTORY AND PHYSICAL Maddie [employer] 1970 REFERRING PHYSICIAN: Martha Bates MD CHIEF COMPLAINT: Consult (colonoscopy) HPI: The patient is a 52 year old female referred for endoscopy. Mdadie notes a history of colon polyps. Patient denies any change in bowel habits, weight changes, blood in stools, black tarry stools or abdominal pain. Denies family history of colon issues. The patient NOTES history of GERD and dry cough. Maddie has undergone prior endoscopy, last in [address] Stearns under conscious sedation with removal of adenomatous polyp. Denies problems with sedation in the past PAST MEDICAL HISTORY Diagnosis Date Chronic frontal sinusitis last CT 11/2012: STABLE POSTOPERATIVE CHANGES FROM PRIOR SINONASAL SURGERY. Concussion 07/2013 post-concussive symptoms; 07/2013 and 01/2014 Concussion month of may 2016 Disc degeneration 2012 bulging,cervical GERD (gastroesophageal reflux disease) Dx 2000 Liver cyst multiple hepatic cysts Lower GI hemorrhage 2008 normal colonoscopy Renal cyst Simple right renal Unspecified asthma(493.90) EIA in her 20's Unspecified epilepsy without mention of intractable epilepsy Epilepsy, last episode 20 years PAST SURGICAL HISTORY Procedure Laterality Date COLONOSCOPY FLX DX W/COLLJ SPEC WHEN PFRMD normal COLONOSCOPY FLX DX W/COLLJ SPEC WHEN PFRMD 07/14/2018 Colonoscopy ESOPHAGOGASTRODUODENOSCOPY TRANSORAL DIAGNOSTIC 07/14/2018 EGD PAST SURGICAL HISTORY OF 2005 Vein extraction Left Bicep PAST SURGICAL HISTORY OF 2011 Left Endoscopic Sinus Surgery SINUS SURGERY PROC UNLISTED 2001 Current Outpatient Medications Medication Sig Lactobacillus rhamnosus GG (CULTURELLE ORAL) Take by mouth. TEGRETOL XR 200 mg 12 hr tablet Take 1 tablet by mouth twice daily. BRAND. Take with 100 mg strength tabs. TEGRETOL XR 100 mg 12 hr tablet Take 1 tablet by mouth twice daily. Take with 200 mg tablets. albuterol HFA (PROAIR HFA) 90 mcg/actuation inhaler Inhale 2 Puffs as instructed every 6 hours as needed. albuterol (PROVENTIL) 2.5 mg /3 mL (0.083 %) nebulizer solution Use 3 mL via nebulizer every 4 hours as needed for wheezing/shortness of breath. Use over 5-15minutes. zonisamide (ZONEGRAN) 50 mg capsule Take 1 capsule by mouth every morning AND 2 capsules daily at bedtime. MOMETASONE/FORMOTEROL (DULERA INHALATION) Inhale as instructed. EPINEPHrine (EPIPEN 2-DEMI) 0.3 mg/0.3 mL auto-injector Inject 0.3 mL intramuscularly as needed (for allergic reaction.Seek emergent medical care immediately after use.Disp:one 2-pack w/it trainer). fluticasone (FLONASE) 50 mcg/actuation nasal spray Use 2 Sprays in each nostril every morning. Rinse mouth after use. montelukast (SINGULAIR) 10 mg tablet take 1 tablet by mouth at bedtime Cholecalciferol, Vitamin D3, 5,000 unit cap Take 1 capsule by mouth once daily. cetirizine hcl(ZYRTEC 10 MG TAB) Take one(1) tablet daily. No current facility-administered medications for this visit. ALLERGIES: Latex, Amoxicillin, Contrast Dye, Doxycycline, Environmental Allergies [Other], Prilosec [Omeprazole], Shellfish, and Trileptal [Oxcarbazepine] PERSONAL HISTORY: Social History Tobacco Use Smoking status: Never Smokeless tobacco: Never Vaping Use Vaping Use: Never used Substance Use Topics Alcohol use: No Drug use: No FAMILY HISTORY: FAMILY HISTORY Problem Relation Age of Onset Hypertension Mother Asthma Mother Heart Father Emphysema Father other (Lung Cancer) Father Smoker other (heart attack) Father REVIEW OF SYMPTOMS: The review of systems data was entered by the nurse and reviewed by wa Nursing Notes: Tierra Newman LPN 05/10/2023 8:13 AM Signed REVIEW OF SYSTEMS: General: The patient denies fatigue, denies weight loss, denies weight gain, denies feeling hot, and denies feelings of cold. Eyes: The patient denies glaucoma, denies eye injury/surgery, wears glasses or contacts. Ear/Nose/Throat: The patient notes allergies, denies hayfever, notes ear infections, and denies bloody noses. Cardiovascular: The patient denies chest pain, denies heart disease, denies high blood pressure,denies cardiac stent, denies prior heart attack, denies irregular heart beat, denies high cholesterol, denies poor circulation, denies heart failure, other cardiac issues, denies claudication, denies cold feet, denies peripheral arterial stent. Respiratory: The patient denies tuberculosis, denies pneumonia, denies frequent cough, denies pulmonary embolism, denies shortness of breath, and denies coughing up blood, notes asthma. Gastrointestinal: The patient denies difficulty swallowing, notes acid reflux, denies ulcers, denies vomiting, denies jaundice/hepatitis, denies gallbladder problems, denies black or (more content not included)... 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 Maddie notes a history of colon polyps. Patient denies any change in bowel habits, weight changes, blood in stools, black tarry stools or abdominal pain. Denies family history of colon issues. The patient NOTES history of GERD and dry cough. Maddie has undergone prior endoscopy, last in [address] Stearns under conscious sedation with removal of adenomatous polyp. Denies problems with sedation in the past PAST MEDICAL HISTORY Diagnosis Date Chronic frontal sinusitis last CT 11/2012: STABLE POSTOPERATIVE CHANGES FROM PRIOR SINONASAL SURGERY. Concussion 07/2013 post-concussive symptoms; 07/2013 and 01/2014 Concussion month of may 2016 Disc degeneration 2011 bulging,cervical GERD (gastroesophageal reflux disease) Dx 2000 Liver cyst multiple hepatic cysts Lower GI hemorrhage 2008 normal colonoscopy Renal cyst Simple right renal Unspecified asthma(493.90) EIA in her 20's Unspecified epilepsy without mention of intractable epilepsy Epilepsy, last episode 20 years PAST SURGICAL HISTORY Procedure Laterality Date COLONOSCOPY FLX DX W/COLLJ SPEC WHEN PFRMD normal COLONOSCOPY FLX DX W/COLLJ SPEC WHEN PFRMD 07/14/2018 Colonoscopy ESOPHAGOGASTRODUODENOSCOPY TRANSORAL DIAGNOSTIC 07/14/2018 EGD PAST SURGICAL HISTORY OF 2005 Vein extraction Left Bicep PAST SURGICAL HISTORY OF 2011 Left Endoscopic Sinus Surgery SINUS SURGERY PROC UNLISTED 2001 Current Outpatient Medications Medication Sig Lactobacillus rhamnosus GG (CULTURELLE ORAL) Take by mouth. TEGRETOL XR 200 mg 12 hr tablet Take 1 tablet by mouth twice daily. BRAND. Take with 100 mg strength tabs. TEGRETOL XR 100 mg 12 hr tablet Take 1 tablet by mouth twice daily. Take with 200 mg tablets. albuterol HFA (PROAIR HFA) 90 mcg/actuation inhaler Inhale 2 Puffs as instructed every 6 hours as needed. albuterol (PROVENTIL) 2.5 mg /3 mL (0.083 %) nebulizer solution Use 3 mL via nebulizer every 4 hours as needed for wheezing/shortness of breath. Use over 5-15minutes. zonisamide (ZONEGRAN) 50 mg capsule Take 1 capsule by mouth every morning AND 2 capsules daily at bedtime. MOMETASONE/FORMOTEROL (DULERA INHALATION) Inhale as instructed. EPINEPHrine (EPIPEN 2-DEMI) 0.3 mg/0.3 mL auto-injector Inject 0.3 mL intramuscularly as needed (for allergic reaction.Seek emergent medical care immediately after use.Disp:one 2-pack w/it trainer). fluticasone (FLONASE) 50 mcg/actuation nasal spray Use 2 Sprays in each nostril every morning. Rinse mouth after use. montelukast (SINGULAIR) 10 mg tablet take 1 tablet by mouth at bedtime Cholecalciferol, Vitamin D3, 5,000 unit cap Take 1 capsule by mouth once daily. cetirizine hcl(ZYRTEC 10 MG TAB) Take one(1) tablet daily. No current facility-administered medications for this visit. ALLERGIES: Latex, Amoxicillin, Contrast Dye, Doxycycline, Environmental Allergies [Other], Prilosec [Omeprazole], Shellfish, and Trileptal [Oxcarbazepine] PERSONAL HISTORY: Social History Tobacco Use Smoking status: Never Smokeless tobacco: Never Vaping Use Vaping Use: Never used Substance Use Topics Alcohol use: No Drug use: No FAMILY HISTORY: FAMILY HISTORY Problem Relation Age of Onset Hypertension Mother Asthma Mother Heart Father Emphysema Father other (Lung Cancer) Father Smoker other (heart attack) Father REVIEW OF SYMPTOMS: The review of systems data was entered by the nurse and reviewed by wa Nursing Notes: Tierra Newman LPN 05/10/2023 8:13 AM Signed REVIEW OF SYSTEMS: General: The patient denies fatigue, denies weight loss, denies weight gain, denies feeling hot, and denies feelings of cold. Eyes: The patient denies glaucoma, denies eye injury/surgery, wears glasses or contacts. Ear/Nose/Throat: The patient notes allergies, denies hayfever, notes ear infections, and denies bloody noses. Cardiovascular: The patient denies chest pain, denies heart disease, denies high blood pressure,denies cardiac stent, denies prior heart attack, denies irregular heart beat, denies high cholesterol, denies poor circulation, denies heart failure, other cardiac issues, denies claudication, denies cold feet, denies peripheral arterial stent. Respiratory: The patient denies tuberculosis, denies pneumonia, denies frequent cough, denies pulmonary embolism, denies shortness of breath, and denies coughing up blood, notes asthma. Gastrointestinal: The patient denies difficulty swallowing, notes acid reflux, denies ulcers, denies vomiting, denies jaundice/hepatitis, denies gallbladder problems, denies black or tarry stools, denies hemorrhoids, denies bleeding from rectum, denies diverticulitis, denies constipation, denies diarrhea, denies loss of stool control, and denies hernias. Kidney/Bladder: The patient denies kidney stones, denies urine infections, and denies bloody urine. Skin: The patient denies a history of skin cancer, denies bleeding/changing moles, and denies a history of skin rash. Neurologic: The patient notes a history of epilepsy/convulsions, denies headaches, denies head/spinal injuries, and denies stroke/TIA. Psychiatric: The patient denies psychiatric medications, denies depression, and denies voices, denies substance abuse. Endocrine: The patient denies thyroid disorders, denies diabetes, and denies hormonal problems. Hematologic: The patient denies a history of bruising, denies bleeding, and denies anemia, denies blood clots. Infections: The patient denies a history of measles and mumps, denies rheumatic fever, and denies sexually transmitted diseases. Musculoskeletal: The patient denies back pain/injury, denies back problems, denies sciatica, notes knee/foot trouble, denies arthritis, or denies gout. When was patient's last Mammogram screening? 2022 Last Colonoscopy: 2017 Tierra Newman LPN I have confirmed and edited as necessary, the PFSH and ROS obtained by others. Neisha Chino PA-C PHYSICAL EXAMINATION: General: The patient is 52 year old female, well nourished, well hydrated in no acute distress. The patient is oriented to time, place, and person. VITALS: Blood pressure 108/64, pulse 93, temperature (!) 35.7 C (96.2 F), height 170.2 cm (5' 7 ), weight 78 kg (172 lb), SpO2 97 %. Body mass index is 26.94 kg/m . HEENT: Normal cephalic, ataumatic, pupils are equally round, sclera are anicteric, mucous membranes are moist, oropharynx is clear. Neck has no masses, asymmetry or lymphadenopathy. Respiratory: Clear to auscultation and percussion. Normal respiratory excursion and pattern. Cardiac: Examination is regular rate and rhythm. Normal S1/S2 Abdominal exam: Soft, nontender, with no palpable masses. No hepatosplenomegaly. No palpable hernias. Extremities: no clubbing, cyanosis or edema. No adenopathy. LABORATORY VALUES: As Noted RADIOLOGIC STUDIES: As Noted Assessment IMPRESSION: encounter for surveillance colonoscopy due to personal history of colon polyps PLAN: I have reviewed my findings with the surgeon. Will plan for lower endoscopy. We discussed the risks and benefits of the planned endoscopy. I have informed the patient that complications can occur including failure to complete the endoscopy and perforation. The patient had the opportunity to ask questions concerning the planned endoscopy. My staff has also explained the procedure to the patient in understandable terms and has given the patient printed material concerning the procedure. The patient freely consents to surgery. I plan to use Miralax bowel preparation Diagnoses: (Z12.11) Encounter for screening for malignant neoplasm of colon (primary encounter diagnosis) (Z86.010) History of colonic polyps Consultation requested by Dr. Bates for an opinion regarding screening colonoscopy. My final recommendations will be communicated back to the requesting physician by way of shared Medical record or letter to requesting physician via US mail. Neisha Chino PA-C documented in this encounter [facility] 05-10-2023 Nurse Note REVIEW OF SYSTEMS: General: The patient denies fatigue, denies weight loss, denies weight gain, denies feeling hot, and denies feelings of cold. Eyes: The patient denies glaucoma, denies eye injury/surgery, wears glasses or contacts. Ear/Nose/Throat: The patient notes allergies, denies hayfever, notes ear infections, and denies bloody noses. Cardiovascular: The patient denies chest pain, denies heart disease, denies high blood pressure,denies cardiac stent, denies prior heart attack, denies irregular heart beat, denies high cholesterol, denies poor circulation, denies heart failure, other cardiac issues, denies claudication, denies cold feet, denies peripheral arterial stent. Respiratory: The patient denies tuberculosis, denies pneumonia, denies frequent cough, denies pulmonary embolism, denies shortness of breath, and denies coughing up blood, notes asthma. Gastrointestinal: The patient denies difficulty swallowing, notes acid reflux, denies ulcers, denies vomiting, denies jaundice/hepatitis, denies gallbladder problems, denies black or tarry stools, denies hemorrhoids, denies bleeding from rectum, denies diverticulitis, denies constipation, denies diarrhea, denies loss of stool control, and denies hernias. Kidney/Bladder: The patient denies kidney stones, denies urine infections, and denies bloody urine. Skin: The patient denies a history of skin cancer, denies bleeding/changing moles, and denies a history of skin rash. Neurologic: The patient notes a history of epilepsy/convulsions, denies headaches, denies head/spinal injuries, and denies stroke/TIA. Psychiatric: The patient denies psychiatric medications, denies depression, and denies voices, denies substance abuse. Endocrine: The patient denies thyroid disorders, denies diabetes, and denies hormonal problems. Hematologic: The patient denies a history of bruising, denies bleeding, and denies anemia, denies blood clots. Infections: The patient denies a history of measles and mumps, denies rheumatic fever, and denies sexually transmitted diseases. Musculoskeletal: The patient denies back pain/injury, denies back problems, denies sciatica, notes knee/foot trouble, denies arthritis, or denies gout. When was patient's last Mammogram screening? 2022 Last Colonoscopy: 2017 Tierra Newman LPN documented in this encounter [facility] 05-02-2023 Miscellaneous Notes Per information from Alicia, patient may self attest regarding her risk for COVID 19 infection and get the COVID19 booster at the pharmacy. Will send Reading Room message to clarify with patient. Sent in response to Reading Room message about vaccine and colonoscopy in April. Patient returned call and went over information below and still thinks she should qualify for second booster even though she does not have enough health concerns to warrant getting one, just because she is [facility] [place] many other people that all got COVID last summer. Explained that the age group is for 65 and older right now, to keep eye out for when the age drops for next group to get vaccine. Message left for patient to call PCP office and ask for a nurse, for message below. Elena Guerin RN April 30, 2023 April Kaur [facility] to Me KR 10:29 AM Hi Chang, We do not carry Moderna bivalent COVID-19 anywhere within the [facility] health system. Pfizer is our formulary product. Most commercial community pharmacies like [facility] stock both products, so the patient could seek vaccination there. The CDC states that people can self-attest to their moderately or severely immunocompromised status and receive COVID-19 vaccine doses wherever vaccines are offered. Therefore, if the patient feels strongly that they are immunocompromised enough to receive a second booster, they could present to a [email or web address] and request a dose without needing to provide documentation Reference: https://www.cdc.gov/vaccines/covi d-19/clinical-considerations/inte nll-rreoavumrtxxlh-vu.html#immuno compromised I hope that helps! Bisi Me to MD Saige Worthington [facility] KD 1:[address] Bates, I reached out to an ID specialist pharmacist that shared the below information. Thanks! Chang Patient notified of information below and will call back later today to schedule colonoscopy. Pt states she would like the Miralax Prep instead of the Golytely. (Pended for review). Pt will continue to wait from PharmD with other response. Thank you. [facility] colon[facility]. See if schedulers able to get her in as soon as she wants and if prep sent to pharmacy okay or if prefers Miralax/ Dulcolax prep. PharmDs are looking into COVID booster so waiting for reply. Patient calling to follow up on two questions in previous note below. If Pharmacy can please advise on #1 below. For #2 below, if Dr. Bates can place order for pt's colonoscopy for [facility] please. Patient states she has a narrow window of time to get colonoscopy completed in next 2 weeks OR would have to complete in September due to her schedule. Please call pt with update as soon as possible. Thank you. Patient notified of providers message and verbalized understanding. 1)Patient very much wants to pursue COVID finding out more about COVID bivalent booster and how to get it approved given asthma/prednisone and where she can get Moderna bivalent COVID vaccine. 2)Patient has been getting colonoscopies done here at [facility] at [place]. Last one was 07/14/[address] Ricky Stearns MD. Patient would like to stay with someone here [facility]. 1) COVID bivalent booster questions: She does not have one of the typical immunocompromising states listed for giving a second bivalent COVID booster. With asthma, being on prednisone 20mg or more daily does meet criteria for being immunocompromised. Could not find information about being on Dulera at dose she is on with regards to being an indication for bivalent booster. [facility] does not have Moderna bivalent COVID vaccine. Would need to find out if any of the other [facility] sites have Moderna. See if she wants me to pursue finding out more about COVID bivalent booster and how to get it approved given above. 2) Where dose she want to go for colonoscopy? One of our 3 surgeons? [facility]? [facility] outside of [place]? Can then ask them about doing colonoscopy in timeframe she was requesting. Pt had sent two Reading Room messages to provider on 04/15/23: [facility] Department told her to contact her PCP About getting the Covid vaccine. She knows additional boosters are being given to those 65 and older and the immunocompromised. 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 She was wondering if you would allow me to get a booster due to my work conditions in this conjugate setting and my history of asthma/epilepsy? [facility] told her that they cannot give me the booster but that PCP can prescribe the booster because they know the patient's history. They told me that you had the authority to send me to a [facility] facility to get the booster. (Just for you information, I have always had Moderna and prefer to continue with Moderna. My COVID immunizations were: 01/19/21; 02/15/21; 09/23/21; 03/02/22; bivalent 08/03/22.) I leave for [place] on May 19. Pt turns 53 on 07/13/23, was told to have a repeat Colonoscopy in 5 years. She wanted to know if she could get the colonoscopy before May 19, just prior to her 53th birthday, when she leaves for [place]. When she returns, she is scheduled to undergo knee surgery. He recommends a two week separation between knee surgery and a colonoscopy. She states the new school year starts earlier this year and doesn't want this going on during that. She doesn't want to be put under twice in a month so close to classes starting. She wants to know if you're able to order this. Her last colonoscopy was at [facility]. documented in this encounter [facility] 04-29-2023 Note HNO ID: [id number] Author: Ana Ferraro PA-C Service: ? Author Type: Physician Order Fulfillment Specialist Type: Progress Notes Filed: 04/29/2023 10:01 AM Note Text: 04/29/2023 Patient presents with: Vaginal Problem: discharge and burning x 1 week SUBJECTIVE: This is a 52 year old that is here today for possible UTI or BV. She was started on minocycline 3 weeks ago for acne. Now has vaginal burning, and so, she is concerned for possible UTI or vaginitis. Unsure of the burning is urinary or vaginal tissue related. Has new white, vaginal discharge, tissue itching, and tissue tenderness x 1 day. She has struggled with BV before, and so, she is concerned for this. Denies urinary urgency, and urinary frequency. The patient denies fever, chills, abominal pain, lower abdominal pressure, bladder spasms, back pain, or n/v. The patient denies any rash, lesions, odor, change in sexual partners, or concern for STIs. Dysuria pain: - out of 10 with 10 being the worst pain. The lower abdominal pain is 0 out of 10 with 10 being the worst pain. The back/flank pain is 0 out of 10 with 10 being the worst pain. Self-treatment:. culturelle The severity is mild and the symptoms are not improving. The patient has not had similar symptoms in the last 3 months. The patient has not had an antibiotic in the last 3 months. LMP:. NA Reviewed meds, OTCs and supplements. Meds reviewed. Allergies and medications reviewed. Reviewed allergies, medications, social history, and past medical history. Barriers to learning: none. PAST MEDICAL HISTORY Diagnosis Date Chronic frontal sinusitis last CT 11/2012: STABLE POSTOPERATIVE CHANGES FROM PRIOR SINONASAL SURGERY. Concussion 07/2013 post-concussive symptoms; 07/2013 and 01/2014 Concussion month of may 2016 Disc degeneration 2011 bulging,cervical GERD (gastroesophageal reflux disease) Dx 2000 Liver cyst multiple hepatic cysts Lower GI hemorrhage 2008 normal colonoscopy Renal cyst Simple right renal Unspecified asthma(493.90) EIA in her 20's Unspecified epilepsy without mention of intractable epilepsy Epilepsy, last episode 20 years ALLERGIES Latex, Amoxicillin, Contrast Dye, Doxycycline, Environmental Allergies [Other], Prilosec [Omeprazole], Shellfish, and Trileptal [Oxcarbazepine] MEDICATIONS Current Outpatient Medications Medication Sig TEGRETOL XR 200 mg 12 hr tablet Take 1 tablet by mouth twice daily. BRAND. Take with 100 mg strength tabs. TEGRETOL XR 100 mg 12 hr tablet Take 1 tablet by mouth twice daily. Take with 200 mg tablets. carBAMazepine XR (TEGRETOL XR) 200 mg 12 hr tablet Take 1 tablet by mouth twice daily. albuterol HFA (PROAIR HFA) 90 mcg/actuation inhaler Inhale 2 Puffs as instructed every 6 hours as needed. albuterol (PROVENTIL) 2.5 mg /3 mL (0.083 %) nebulizer solution Use 3 mL via nebulizer every 4 hours as needed for wheezing/shortness of breath. Use over 5-15minutes. zonisamide (ZONEGRAN) 50 mg capsule Take 1 capsule by mouth every morning AND 2 capsules daily at bedtime. MOMETASONE/FORMOTEROL (DULERA INHALATION) Inhale as instructed. EPINEPHrine (EPIPEN 2-DEMI) 0.3 mg/0.3 mL auto-injector Inject 0.3 mL intramuscularly as needed (for allergic reaction.Seek emergent medical care immediately after use.Disp:one 2-pack w/it trainer). fluticasone (FLONASE) 50 mcg/actuation nasal spray Use 2 Sprays in each nostril every morning. Rinse mouth after use. Cholecalciferol, Vitamin D3, 5,000 unit cap Take 1 capsule by mouth once daily. cetirizine hcl(ZYRTEC 10 MG TAB) Take one(1) tablet daily. minocycline (MINOCIN, DYNACIN) 100 mg capsule TAKE 1 CAPSULE BY MOUTH AT NIGHT AFTER DINNER WITH A FULL GLASS OF WATER. DO NOT LIE DOWN 1 HOUR AFTER TAKING. Lactobacillus rhamnosus GG (CULTURELLE ORAL) Take by mouth. benzonatate (TESSALON PERLE) 100 mg capsule Take 2 capsules by mouth three times daily as needed. (Patient not taking: Reported on 01/07/2023) levalbuterol tartrate HFA 45 mcg/actuation inhaler Inhale 2 Puffs as instructed every 4 hours as needed for Wheezing/Shortness of Breath. (Patient not taking: Reported on 01/07/2023) montelukast (SINGULAIR) 10 mg tablet take 1 tablet by mouth at bedtime No current facility-administered medications for this visit. Medications and allergies reviewed by this provider. SOCIAL HISTORY Social History Tobacco Use Smoking status: Never Smokeless tobacco: Never Substance Use Topics Alcohol use: No Drug use: No REVIEW OF SYSTEMS ROS: constitutional-neg, heent-neg, heart-neg, respiratory-neg, GI-neg, -concern for UTI, skin-neg, lymph-neg, neuro-neg, psych-neg- All systems neg except as noted above in HPI. OBJECTIVE: BP 102/66 Pulse 88 Temp 37 ?C (98.6 ?F) Resp 16 Wt 78 kg (172 lb) SpO2 97% BMI 26.94 kg/m? . Vital signs reviewed by this provider. Physical Exam Vitals reviewed. Constitutional: General: She is not in acute distre (more content not included)... [facility] 04-29-2023 Instructions Ana Ferraro PA-C - 04/29/2023 9:54 AM EDT ASSESSMENT/PLAN: 1. Vaginal discharge - 2. Acute vaginitis - - UA DIP, URINE (POC)- negative for signs of UTI - URINE CULTURE - BACTERIAL VAGINOSIS AMPLIFICATION If positive for BV, will send in antibiotic treatment. Would use the Metro Gel, since does not interact with her Tegretol. She VU of this. - PRIYANKA / TRICHOMONAS AMPLIFICATION Will treat as needed Follow up with [facility] Call PCP if sx worsen or no better in 2-3 days. If symptoms worsen, or new symptoms develop go to ER. If you develop fever, chills, worsening back pain, worsening abdominal pain, or new symptoms- see your PCP immediately or go to ER. Follow up as needed. Barriers to Learning: None. Barriers to Learning: Age. Here with a parent. The patient is instructed to return or seek emergency treatment if symptoms become worse or with any acute change in condition. The patient verbalizes understanding and is in agreement with plan of care. Ana Ferraro PA-C documented in this encounter [facility] 04-29-2023 History of Present illness Narrative 04/29/2023 Patient presents with: Vaginal Problem: discharge and burning x 1 week SUBJECTIVE: This is a 52 year old that is here today for possible UTI or BV. She was started on minocycline 3 weeks ago for acne. Now has vaginal burning, and so, she is concerned for possible UTI or vaginitis. Unsure of the burning is urinary or vaginal tissue related. Has new white, vaginal discharge, tissue itching, and tissue tenderness x 1 day. She has struggled with BV before, and so, she is concerned for this. Denies urinary urgency, and urinary frequency. The patient denies fever, chills, abominal pain, lower abdominal pressure, bladder spasms, back pain, or n/v. The patient denies any rash, lesions, odor, change in sexual partners, or concern for STIs. Dysuria pain: - out of 10 with 10 being the worst pain. The lower abdominal pain is 0 out of 10 with 10 being the worst pain. The back/flank pain is 0 out of 10 with 10 being the worst pain. Self-treatment:. culturelle The severity is mild and the symptoms are not improving. The patient has not had similar symptoms in the last 3 months. The patient has not had an antibiotic in the last 3 months. LMP:. NA Reviewed meds, OTCs and supplements. Meds reviewed. Allergies and medications reviewed. Reviewed allergies, medications, social history, and past medical history. Barriers to learning: none. PAST MEDICAL HISTORY Diagnosis Date Chronic frontal sinusitis last CT 11/2012: STABLE POSTOPERATIVE CHANGES FROM PRIOR SINONASAL SURGERY. Concussion 07/2013 post-concussive symptoms; 07/2013 and 01/2014 Concussion month of may 2016 Disc degeneration 2012 bulging,cervical GERD (gastroesophageal reflux disease) Dx 2000 Liver cyst multiple hepatic cysts Lower GI hemorrhage 2008 normal colonoscopy Renal cyst Simple right renal Unspecified asthma(493.90) EIA in her 20's Unspecified epilepsy without mention of intractable epilepsy Epilepsy, last episode 20 years ALLERGIES Latex, Amoxicillin, Contrast Dye, Doxycycline, Environmental Allergies [Other], Prilosec [Omeprazole], Shellfish, and Trileptal [Oxcarbazepine] MEDICATIONS Current Outpatient Medications Medication Sig TEGRETOL XR 200 mg 12 hr tablet Take 1 tablet by mouth twice daily. BRAND. Take with 100 mg strength tabs. TEGRETOL XR 100 mg 12 hr tablet Take 1 tablet by mouth twice daily. Take with 200 mg tablets. carBAMazepine XR (TEGRETOL XR) 200 mg 12 hr tablet Take 1 tablet by mouth twice daily. albuterol HFA (PROAIR HFA) 90 mcg/actuation inhaler Inhale 2 Puffs as instructed every 6 hours as needed. albuterol (PROVENTIL) 2.5 mg /3 mL (0.083 %) nebulizer solution Use 3 mL via nebulizer every 4 hours as needed for wheezing/shortness of breath. Use over 5-15minutes. zonisamide (ZONEGRAN) 50 mg capsule Take 1 capsule by mouth every morning AND 2 capsules daily at bedtime. MOMETASONE/FORMOTEROL (DULERA INHALATION) Inhale as instructed. EPINEPHrine (EPIPEN 2-DEMI) 0.3 mg/0.3 mL auto-injector Inject 0.3 mL intramuscularly as needed (for allergic reaction.Seek emergent medical care immediately after use.Disp:one 2-pack w/it trainer). fluticasone (FLONASE) 50 mcg/actuation nasal spray Use 2 Sprays in each nostril every morning. Rinse mouth after use. Cholecalciferol, Vitamin D3, 5,000 unit cap Take 1 capsule by mouth once daily. cetirizine hcl(ZYRTEC 10 MG TAB) Take one(1) tablet daily. minocycline (MINOCIN, DYNACIN) 100 mg capsule TAKE 1 CAPSULE BY MOUTH AT NIGHT AFTER DINNER WITH A FULL GLASS OF WATER. DO NOT LIE DOWN 1 HOUR AFTER TAKING. Lactobacillus rhamnosus GG (CULTURELLE ORAL) Take by mouth. benzonatate (TESSALON PERLE) 100 mg capsule Take 2 capsules by mouth three times daily as needed. (Patient not taking: Reported on 01/07/2023) levalbuterol tartrate HFA 45 mcg/actuation inhaler Inhale 2 Puffs as instructed every 4 hours as needed for Wheezing/Shortness of Breath. (Patient not taking: Reported on 01/07/2023) montelukast (SINGULAIR) 10 mg tablet take 1 tablet by mouth at bedtime No current facility-administered medications for this visit. Medications and allergies reviewed by this provider. SOCIAL HISTORY Social History Tobacco Use Smoking status: Never Smokeless tobacco: Never Substance Use Topics Alcohol use: No Drug use: No REVIEW OF SYSTEMS ROS: constitutional-neg, heent-neg, heart-neg, respiratory-neg, GI-neg, -concern for UTI, skin-neg, lymph-neg, neuro-neg, psych-neg- All systems neg except as noted above in HPI. OBJECTIVE: BP 102/66 Pulse 88 Temp 37 C (98.6 F) Resp 16 Wt 78 kg (172 lb) SpO2 97% BMI 26.94 kg/m . Vital signs reviewed by this provider. Physical Exam Vitals reviewed. Constitutional: General: She is not in acute distress. Appearance: Normal appearance. She is well-developed and normal weight. She is not ill-appearing, toxic-appearing or diaphoretic. Cardiovascular: Rate and Rhythm: Normal rate and regular rhythm. Heart sounds: Normal heart sounds. Pulmonary: Effort: Pulmonary effort is normal. Breath sounds: Normal breath sounds and air entry. Abdominal: General: Abdomen is flat. Bowel sounds are normal. Palpations: Abdomen is soft. Tenderness: There is no abdominal tenderness. There is no right CVA tenderness, left CVA tenderness, guarding or rebound. Genitourinary: Comments: Self swab of vaginal discharge, per patient preference. exam deferred Neurological: Mental Status: She is alert. Psychiatric: Behavior: Behavior is cooperative. ASSESSMENT/PLAN: 1. Vaginal discharge - ICD9: 623.5, ICD10: N89.8 (primary diagnosis) 2. Acute vaginitis - ICD9: 616.10, ICD10: N76.0 - UA DIP, URINE (POC)- negative for signs of UTI - URINE CULTURE - BACTERIAL VAGINOSIS AMPLIFICATION If positive for BV, will send in antibiotic treatment. Would use the Metro Gel, since does not interact with her Tegretol (PO Flagyl has an interaction). She VU of this. - PRIYANKA / TRICHOMONAS AMPLIFICATION Will treat as needed Linda Segovia Follow up with [facility] Call PCP if sx worsen or no better in 2-3 days. If symptoms worsen, or new symptoms develop go to ER. If you develop fever, chills, worsening back pain, worsening abdominal pain, or new symptoms- see your PCP immediately or go to ER. Follow up as needed. Barriers to Learning: None. Barriers to Learning: Age. Here with a parent. The patient is instructed to return or seek emergency treatment if symptoms become worse or with any acute change in condition. The patient verbalizes understanding and is in agreement with plan of care. Ana Ferraro PA-C Medical Decision Making: Problems: Moderate: Acute illness with systemic symptoms Data: Unique test(s) ordered: 3+ Risk: Low: Low risk from testing/treatment Moderate: Drug management Medical Decision Making Level: 4 - Moderate I spent a total of 20 minutes on the date of the service which included preparing to see the patient, [id number] patient care, completing clinical documentation, performing a medically appropriate examination, counseling and educating the patient/family/caregiver, ordering medications, tests, or procedures, and communicating results to the patient/family/caregiver. documented in this encounter [facility] 03-28-2023 Note HNO ID: [id number] Author: Jackson Lomeli PA-C Service: ? Author Type: Physician Order Fulfillment Specialist Type: Progress Notes Filed: 03/28/2023 11:29 AM Note Text: [facility] VIRTUAL VISIT This is a virtual visit using Reading Room video visit. It required patient-provider interaction for the medical decision making as documented below. I have communicated my name and active licensure. The patient's identity and physical location were verified at the time of this visit. Either the patient or their legal credit and collections representative has been informed of the risks and benefits of -- and alternatives to -- treatment through a remote evaluation and consents to proceed with the evaluation remotely. CHIEF COMPLAINT: Patient presents with: Follow Up Seizures Dizziness HISTORY OF PRESENT ILLNESS: Maddie Mcallister is a 52 year old right handed female who is diagnosed with epilepsy since age 3 or 4, and presents today for follow up. They are an established patient of Dr. Eliud Durbin and was last seen on October 04, 2022. Current seizure medications: Tegretol XR 300mg BID Zonegran 50/100 Side effects: None Auras/Seizures: None. Her last aura was August 2021. Last known seizure was 1989. Other health: Legs have been achy lately. She notices this typically when vitamin D gets low. Level came back on the low end of normal. She is currently alternating dosing between 2000 units and 4000 units daily. She experienced vertigo secondary to illness. She notes from October to early January she had bronchitis twice and COVID once. She also had an ear infection in her left ear, which led to vertigo. She had symptoms for multiple days, and when she saw ENT they started an antibiotic. This has improved. About 4 weeks ago, early March, she had one episode where she woke up and when she stood up out of bed she became dizzy and did not feel well. She felt unwell throughout the day. She had been getting a little less sleep. 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: yes Component Latest Ref Rng AND Units 09/25/2021 04/16/2022 03/26/2023 Protein, Total 6.3 - 8.0 g/dL 6.8 6.7 Albumin 3.9 - 4.9 g/dL 4.6 4.4 Calcium 8.5 - 10.2 mg/dL 8.9 8.8 Bilirubin, Total 0.2 - 1.3 mg/dL 0.2 <0.2 (L) Alkaline Phosphatase 34 - 123 U/L 85 74 AST 13 - 35 U/L 16 18 ALT 7 - 38 U/L 15 13 Glucose 74 - 99 mg/dL 104 (H) 110 (H) BUN 7 - 21 mg/dL 17 17 Creatinine 0.58 - 0.96 mg/dL 0.93 1.03 (H) Sodium 136 - 144 mmol/L 142 140 Potassium 3.7 - 5.1 mmol/L 4.0 4.0 Chloride 97 - 105 mmol/L 107 (H) 106 (H) CO2 22 - 30 mmol/L 22 24 Anion Gap 9 - 18 mmol/L 13 10 eGFR >=60 mL/min/1.73mA? 74 65 Zonisamide 10.0 - 40.0 ug/mL 11.7 9.5 (L) Carbamazepine, Free 0.8 - 2.4 ug/mL 1.8 2.0 2.2 Carbamazepine 4.0 - 12.0 ug/mL 9.7 10.1 10.1 Vitamin D 25 Hydroxy 31.0 - 80.0 ng/mL 34.0 SEIZURE DESCRIPTION: Seizure type 1: aura of vertigo (room spinning, unsteadiness) Duration: uncertain, seconds to 3 minutes Seizure type 2: ?psychic aura (feeling of critical alertness) +/---> aura of vertigo Duration: up to 10 seconds CURRENT OUTPATIENT MEDICATIONS: Current Outpatient Medications Medication Sig albuterol HFA (PROAIR HFA) 90 mcg/actuation inhaler Inhale 2 Puffs as instructed every 6 hours as needed. albuterol (PROVENTIL) 2.5 mg /3 mL (0.083 %) nebulizer solution Use 3 mL via nebulizer every 4 hours as needed for wheezing/shortness of breath. Use over 5-15minutes. benzonatate (TESSALON PERLE) 100 mg capsule Take 2 capsules by mouth three times daily as needed. (Patient not taking: Reported on 01/07/2023) TEGRETOL XR 100 mg 12 hr tablet Take 1 tablet by mouth twice daily. Take with 200 mg tablets. zonisamide (ZONEGRAN) 50 mg capsule Take 1 capsule by mouth every morning AND 2 capsules daily at bedtime. carBAMazepine XR (TEGRETOL XR) 200 mg 12 hr tablet Take 1 tablet by mouth twice daily. levalbuterol tartrate HFA 45 mcg/actuation inhaler Inhale 2 Puffs as instructed every 4 hours as needed for Wheezing/Shortness of Breath. (Patient not taking: Reported on 01/07/2023) MOMETASONE/FORMOTEROL (DULERA INHALATION) Inhale as instructed. EPINEPHrine (EPIPEN 2-DEMI) 0.3 mg/0.3 mL auto-injector Inject 0.3 mL intramuscularly as needed (for allergic reaction.Seek emergent medical care immediately after use.Disp:one 2-pack w/it trainer). fluticasone (FLONASE) 50 mcg/actuation nasal spray Use 2 Sprays in each nostril every morning. Rinse mouth after use. montelukast (SINGULAIR) 10 mg tablet take 1 tablet by mouth at bedtime Cholecalciferol, Vitamin D3, 5,000 unit cap Take 1 capsule by mouth once daily. cetirizine hcl(ZYRTEC 10 MG TAB) Take one(1) tablet daily. No current facility-administered medications for this visit. PAST MEDICAL HISTORY Diagnosis Date Chronic frontal sinusitis last CT 11/2012: STABLE POSTOPERATIVE CHANGES FROM PRIOR SINONASAL SURGERY. Concussion 8/ (more content not included)... [facility] 03-28-2023 History of Present illness Narrative [facility] VIRTUAL VISIT This is a virtual visit using Reading Room video visit. It required patient-provider interaction for the medical decision making as documented below. I have communicated my name and active licensure. The patient's identity and physical location were verified at the time of this visit. Either the patient or their legal credit and collections representative has been informed of the risks and benefits of -- and alternatives to -- treatment through a remote evaluation and consents to proceed with the evaluation remotely. CHIEF COMPLAINT: Patient presents with: Follow Up Seizures Dizziness HISTORY OF PRESENT ILLNESS: Maddie Mcallister is a 52 year old right handed female who is diagnosed with epilepsy since age 3 or 4, and presents today for follow up. They are an established patient of Dr. Eliud Durbin and was last seen on October 04, 2022. Current seizure medications: Tegretol XR 300mg BID Zonegran 50/100 Side effects: None Auras/Seizures: None. Her last aura was August 2021. Last known seizure was 1989. Other health: Legs have been achy lately. She notices this typically when vitamin D gets low. Level came back on the low end of normal. She is currently alternating dosing between 2000 units and 4000 units daily. She experienced vertigo secondary to illness. She notes from October to early January she had bronchitis twice and COVID once. She also had an ear infection in her left ear, which led to vertigo. She had symptoms for multiple days, and when she saw ENT they started an antibiotic. This has improved. About 4 weeks ago, early March, she had one episode where she woke up and when she stood up out of bed she became dizzy and did not feel well. She felt unwell throughout the day. She had been getting a little less sleep. 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: yes Component Latest Ref Rng & Units 09/25/2021 04/16/2022 03/26/2023 Protein, Total 6.3 - 8.0 g/dL 6.8 6.7 Albumin 3.9 - 4.9 g/dL 4.6 4.4 Calcium 8.5 - 10.2 mg/dL 8.9 8.8 Bilirubin, Total 0.2 - 1.3 mg/dL 0.2 <0.2 (L) Alkaline Phosphatase 34 - 123 U/L 85 74 AST 13 - 35 U/L 16 18 ALT 7 - 38 U/L 15 13 Glucose 74 - 99 mg/dL 104 (H) 110 (H) BUN 7 - 21 mg/dL 17 17 Creatinine 0.58 - 0.96 mg/dL 0.93 1.03 (H) Sodium 136 - 144 mmol/L 142 140 Potassium 3.7 - 5.1 mmol/L 4.0 4.0 Chloride 97 - 105 mmol/L 107 (H) 106 (H) CO2 22 - 30 mmol/L 22 24 Anion Gap 9 - 18 mmol/L 13 10 eGFR >=60 mL/min/1.73m 74 65 Zonisamide 10.0 - 40.0 ug/mL 11.7 9.5 (L) Carbamazepine, Free 0.8 - 2.4 ug/mL 1.8 2.0 2.2 Carbamazepine 4.0 - 12.0 ug/mL 9.7 10.1 10.1 Vitamin D 25 Hydroxy 31.0 - 80.0 ng/mL 34.0 SEIZURE DESCRIPTION: Seizure type 1: aura of vertigo (room spinning, unsteadiness) Duration: uncertain, seconds to 3 minutes Seizure type 2: ?psychic aura (feeling of critical alertness) +/---> aura of vertigo Duration: up to 10 seconds CURRENT OUTPATIENT MEDICATIONS: Current Outpatient Medications Medication Sig albuterol HFA (PROAIR HFA) 90 mcg/actuation inhaler Inhale 2 Puffs as instructed every 6 hours as needed. albuterol (PROVENTIL) 2.5 mg /3 mL (0.083 %) nebulizer solution Use 3 mL via nebulizer every 4 hours as needed for wheezing/shortness of breath. Use over 5-15minutes. benzonatate (TESSALON PERLE) 100 mg capsule Take 2 capsules by mouth three times daily as needed. (Patient not taking: Reported on 01/07/2023) TEGRETOL XR 100 mg 12 hr tablet Take 1 tablet by mouth twice daily. Take with 200 mg tablets. zonisamide (ZONEGRAN) 50 mg capsule Take 1 capsule by mouth every morning AND 2 capsules daily at bedtime. carBAMazepine XR (TEGRETOL XR) 200 mg 12 hr tablet Take 1 tablet by mouth twice daily. levalbuterol tartrate HFA 45 mcg/actuation inhaler Inhale 2 Puffs as instructed every 4 hours as needed for Wheezing/Shortness of Breath. (Patient not taking: Reported on 01/07/2023) MOMETASONE/FORMOTEROL (DULERA INHALATION) Inhale as instructed. EPINEPHrine (EPIPEN 2-DEMI) 0.3 mg/0.3 mL auto-injector Inject 0.3 mL intramuscularly as needed (for allergic reaction.Seek emergent medical care immediately after use.Disp:one 2-pack w/it trainer). fluticasone (FLONASE) 50 mcg/actuation nasal spray Use 2 Sprays in each nostril every morning. Rinse mouth after use. montelukast (SINGULAIR) 10 mg tablet take 1 tablet by mouth at bedtime Cholecalciferol, Vitamin D3, 5,000 unit cap Take 1 capsule by mouth once daily. cetirizine hcl(ZYRTEC 10 MG TAB) Take one(1) tablet daily. No current facility-administered medications for this visit. PAST MEDICAL HISTORY Diagnosis Date Chronic frontal sinusitis last CT 11/2012: STABLE POSTOPERATIVE CHANGES FROM PRIOR SINONASAL SURGERY. Concussion 07/2013 post-concussive symptoms; 07/2013 and 01/2014 Concussion month of may 2016 Disc degeneration 2011 bulging,cervical GERD (gastroesophageal reflux disease) Dx 2000 Liver cyst multiple hepatic cysts Lower GI hemorrhage 2008 normal colonoscopy Renal cyst Simple right renal Unspecified asthma(493.90) EIA in her 20's Unspecified epilepsy without mention of intractable epilepsy Epilepsy, last episode 20 years PAST SURGICAL HISTORY Procedure Laterality Date COLONOSCOPY FLX DX W/COLLJ SPEC WHEN PFRMD normal COLONOSCOPY FLX DX W/COLLJ SPEC WHEN PFRMD 07/14/2018 Colonoscopy ESOPHAGOGASTRODUODENOSCOPY TRANSORAL DIAGNOSTIC 07/14/2018 EGD PAST SURGICAL HISTORY OF 2005 Vein extraction Left Bicep PAST SURGICAL HISTORY OF 2011 Left Endoscopic Sinus Surgery SINUS SURGERY PROC UNLISTED 2001 FAMILY HISTORY Problem Relation Age of Onset Hypertension Mother Asthma Mother Heart Father Emphysema Father other (Lung Cancer) Father Smoker other (heart attack) Father OTHER TESTING: DXA (03/29/2021): Normal bone mineral density ASSESSMENT: Maddie Mcallister is a 52 year old female with history of a seizure disorder since childhood, 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 Most recent EEG and neuroimaging have been normal. There was an aura in April 2016 after she hit her head with a vacuum wallpaper cleaner. Since that time, her CBZ levels were found elevated, and it was decreased. She remains on combination therapy CBZ and ZNG, but had further auras in August 2021 in the setting of stress, exhaustion, and possibly moving to generic ZNS. Med adjustments have stopped auras, but with increased ZNS likely having side effects. We have since returned to her normal dosing, with resolution of side effects and no further auras. She had recent episodes of dizziness and vertigo. Recent bloodwork showed slightly elevated glucose and creatinine, and vitamin D on the lower end of normal. PLAN: - LABS: HgA1C, repeat BMP in 1 week - Medications: -Continue Tegretol XR 300mg BID (100mg brand + 200mg generic). -Continue Zonegran to 50mg in am, 100mg in pm. -Increase Vitamin D to 4000 units daily, recheck level in 2-3 months - Avoid sleep deprivation and stress, or any other potential triggers - If dizziness episodes continue, consider tilt table (positional) - Follow up: 6 months or sooner if needed I spent a total of 25 minutes on the date of the service which included preparing to see the patient, [id number] patient care, completing clinical documentation, and ordering medications, tests, or procedures. Jackson Lomeli PA-C March 28, 2023 documented in this encounter [facility] 01-11-2023 Miscellaneous Notes January 14, 2023 PID: [id number] Maddie Mcallister [address] [place] [address] Dear Ms. Mcallister, We are pleased to inform you that the results of your recent breast imaging exam on 01/10/2023 are normal. Your mammogram demonstrates that you have dense breast tissue, which could hide abnormalities. Dense breast tissue, in and of itself, is a relatively common condition. Therefore, this information is not provided to cause undue concern; rather, it is to raise your awareness and promote discussion with your health care provider regarding the presence of dense breast tissue in addition to other risk factors. Early detection of cancer is very important. We also understand recommendations regarding breast cancer screening are controversial. Please discuss with your primary care provider which strategy is best for you and whether a mammogram is right for you. Your imaging studies and report will be kept on file at [facility] as part of your permanent medical record and are available for your continuing care. Thank you for allowing us to help in meeting your health care needs. Sincerely, Dr. Rapp Interpreting Radiologist [facility] (Normal over 40) documented in this encounter [facility] 01-10-2023 History of Present illness Narrative Radiology Service Progress Note PATIENT NAME: Maddie Mcallister DATE OF SERVICE: January 10, 2023 TIME: 2:06 PM PATIENT IDENTITY VERIFICATION COMPLETED USING TWO (2) IDENTIFIERS: Name and Date of confirmed by patient verbally. FALL SCREENING: Has the patient had 2 falls in the last year or 1 fall with injury or currently using an Ambulatory Assistive Device (Walker, Cane, Wheelchair, Crutches, etc.)? No PATIENT GENDER DATA: Female. status: : No status: NO. PATIENT RELEVANT IMPLANT DATA REVIEWED: Not Applicable RADIOLOGY DEPARTMENT: Mammography PERIPHERAL IV DATA: Not applicable SIGNED BY: GALLO Ronquillo January 10, 2023 2:06 PM documented in this encounter [facility] 01-07-2023 Note HNO ID: [id number] Author: Martha Bates MD Service: ? Author Type: Physician Type: Progress Notes Filed: 02/04/2023 12:45 AM Note Text: This note was created using ClearAppriter. Subjective Maddie Mcallister is a 52 year old female. Patient presents with: Vertigo, dizziness x 1 day SUBJECTIVE: Maddie Mcallister is a 52 year old year old lady here today for follow up appointment for review of medical conditions Vertigo type dizziness. Different than seizure disorder. [place] like spinning in her head. Had to focus on something stable and sharp like a corner of something. [place] like floating in bed at times too. Bad ear infection October after bronchitis. Sort of cleared up with antibiotic. Then got COVID. Still with cough and head congestion since then at beginning of October Congestion and postnasal drip worse the past week. Left worse than right ear pain and pressure. Like when had prior ear infection. No fevers or chills. Cough can be dry or productive of white mucus from lungs. Has not use used albuterol lately--was not helping a whole lot. Stopped about 1 month ago. Had prednisone when had bronchitis. Follows with Dr. Pyle. Last seen prior to COVID. Was given Incruse Ellipta and Duoneb to help with cough. Did help but weaned off when was not as bad. Noted going to PT for knee. PAST MEDICAL HISTORY Diagnosis Date Chronic frontal sinusitis last CT 11/2012: STABLE POSTOPERATIVE CHANGES FROM PRIOR SINONASAL SURGERY. Concussion 07/2013 post-concussive symptoms; 07/2013 and 01/2014 Concussion month of may 2016 Disc degeneration 2011 bulging,cervical GERD (gastroesophageal reflux disease) Dx 2000 Liver cyst multiple hepatic cysts Lower GI hemorrhage 2008 normal colonoscopy Renal cyst Simple right renal Unspecified asthma(493.90) EIA in her 20's Unspecified epilepsy without mention of intractable epilepsy Epilepsy, last episode 20 years Current Outpatient Medications Medication Sig albuterol HFA (PROAIR HFA) 90 mcg/actuation inhaler Inhale 2 Puffs as instructed every 6 hours as needed. albuterol (PROVENTIL) 2.5 mg /3 mL (0.083 %) nebulizer solution Use 3 mL via nebulizer every 4 hours as needed for wheezing/shortness of breath. Use over 5-15minutes. TEGRETOL XR 100 mg 12 hr tablet Take 1 tablet by mouth twice daily. Take with 200 mg tablets. zonisamide (ZONEGRAN) 50 mg capsule Take 1 capsule by mouth every morning AND 2 capsules daily at bedtime. carBAMazepine XR (TEGRETOL XR) 200 mg 12 hr tablet Take 1 tablet by mouth twice daily. MOMETASONE/FORMOTEROL (DULERA INHALATION) Inhale as instructed. EPINEPHrine (EPIPEN 2-DEMI) 0.3 mg/0.3 mL auto-injector Inject 0.3 mL intramuscularly as needed (for allergic reaction.Seek emergent medical care immediately after use.Disp:one 2-pack w/it trainer). fluticasone (FLONASE) 50 mcg/actuation nasal spray Use 2 Sprays in each nostril every morning. Rinse mouth after use. montelukast (SINGULAIR) 10 mg tablet take 1 tablet by mouth at bedtime Cholecalciferol, Vitamin D3, 5,000 unit cap Take 1 capsule by mouth once daily. cetirizine hcl(ZYRTEC 10 MG TAB) Take one(1) tablet daily. benzonatate (TESSALON PERLE) 100 mg capsule Take 2 capsules by mouth three times daily as needed. (Patient not taking: Reported on 01/07/2023) predniSONE (DELTASONE) 10 mg tablet Take 4 tabs daily for 3 days, then 2 tabs daily for 3 days, then 1 tab daily for 3 days with food. (Patient not taking: Reported on 01/07/2023) levalbuterol tartrate HFA 45 mcg/actuation inhaler Inhale 2 Puffs as instructed every 4 hours as needed for Wheezing/Shortness of Breath. (Patient not taking: Reported on 01/07/2023) No current facility-administered medications for this visit. Review of Systems Objective BP 112/64 Pulse 85 Temp 36.9 ?C (98.4 ?F) Resp 18 Wt 79.8 kg (176 lb) SpO2 99% BMI 27.57 kg/m? Physical Exam Constitutional: Appearance: Normal appearance. HENT: Head: Normocephalic. Comments: Tender over frontal sinuses more than maxillary sinuses Eyes: Conjunctiva/sclera: Conjunctivae normal. Cardiovascular: Rate and Rhythm: Normal rate and regular rhythm. Heart sounds: Normal heart sounds. Pulmonary: Effort: Pulmonary effort is normal. Breath sounds: Normal breath sounds. Skin: General: Skin is warm and dry. Neurological: General: No focal deficit present. Mental Status: She is alert and oriented to person, place, and time. Psychiatric: Mood and Affect: Mood normal. Behavior: Behavior normal. Thought Content: Thought content normal. Judgment: Judgment normal. Assessment and Plan Encounter Diagnosis ICD-10-CM 1. Sinobronchitis J32.9 J40 2. Moderate persistent extrinsic asthma without complication J45.40 3. Otalgia of both ears H92.03 4. Benign paroxysmal positional vertigo, unspecified laterality H81.10 Above issues addressed with patient. Patient involved in shared decision meg (more content not included)... [facility] 01-07-2023 Instructions Martha Bates MD - 01/07/2023 2:31 PM EST See if Dr. Subramanian would consider Dulera as rescue inhaler if needed since other trials did not resolve issues with cough and wheezing. Slow down prednisone taper as needed if going down by 10 mg results in flare up of asthma. Could slow down taper to every 5 to 7 days if needs. Can use Flonase 2 sprays once daily. Nasal saline can help with congestion. If vertigo not getting better consider PT, ENT or neuro eval. documented in this encounter [facility] 01-07-2023 History of Present illness Narrative This note was created using ClearAppriter. Subjective Maddie Mcallister is a 52 year old female. Patient presents with: Vertigo, dizziness x 1 day SUBJECTIVE: Maddie Mcallister is a 52 year old year old lady here today for follow up appointment for review of medical conditions Vertigo type dizziness. Different than seizure disorder. [place] like spinning in her head. Had to focus on something stable and sharp like a corner of something. [place] like floating in bed at times too. Bad ear infection October after bronchitis. Sort of cleared up with antibiotic. Then got COVID. Still with cough and head congestion since then at beginning of October Congestion and postnasal drip worse the past week. Left worse than right ear pain and pressure. Like when had prior ear infection. No fevers or chills. Cough can be dry or productive of white mucus from lungs. Has not use used albuterol lately--was not helping a whole lot. Stopped about 1 month ago. Had prednisone when had bronchitis. Follows with Dr. Pyle. Last seen prior to COVID. Was given Incruse Ellipta and Duoneb to help with cough. Did help but weaned off when was not as bad. Noted going to PT for knee. PAST MEDICAL HISTORY Diagnosis Date Chronic frontal sinusitis last CT 11/2012: STABLE POSTOPERATIVE CHANGES FROM PRIOR SINONASAL SURGERY. Concussion 07/2013 post-concussive symptoms; 07/2013 and 01/2014 Concussion month of may 2016 Disc degeneration 2011 bulging,cervical GERD (gastroesophageal reflux disease) Dx 1999 Liver cyst multiple hepatic cysts Lower GI hemorrhage 2008 normal colonoscopy Renal cyst Simple right renal Unspecified asthma(493.90) EIA in her 20's Unspecified epilepsy without mention of intractable epilepsy Epilepsy, last episode 20 years Current Outpatient Medications Medication Sig albuterol HFA (PROAIR HFA) 90 mcg/actuation inhaler Inhale 2 Puffs as instructed every 6 hours as needed. albuterol (PROVENTIL) 2.5 mg /3 mL (0.083 %) nebulizer solution Use 3 mL via nebulizer every 4 hours as needed for wheezing/shortness of breath. Use over 5-15minutes. TEGRETOL XR 100 mg 12 hr tablet Take 1 tablet by mouth twice daily. Take with 200 mg tablets. zonisamide (ZONEGRAN) 50 mg capsule Take 1 capsule by mouth every morning AND 2 capsules daily at bedtime. carBAMazepine XR (TEGRETOL XR) 200 mg 12 hr tablet Take 1 tablet by mouth twice daily. MOMETASONE/FORMOTEROL (DULERA INHALATION) Inhale as instructed. EPINEPHrine (EPIPEN 2-DEMI) 0.3 mg/0.3 mL auto-injector Inject 0.3 mL intramuscularly as needed (for allergic reaction.Seek emergent medical care immediately after use.Disp:one 2-pack w/it trainer). fluticasone (FLONASE) 50 mcg/actuation nasal spray Use 2 Sprays in each nostril every morning. Rinse mouth after use. montelukast (SINGULAIR) 10 mg tablet take 1 tablet by mouth at bedtime Cholecalciferol, Vitamin D3, 5,000 unit cap Take 1 capsule by mouth once daily. cetirizine hcl(ZYRTEC 10 MG TAB) Take one(1) tablet daily. benzonatate (TESSALON PERLE) 100 mg capsule Take 2 capsules by mouth three times daily as needed. (Patient not taking: Reported on 01/07/2023) predniSONE (DELTASONE) 10 mg tablet Take 4 tabs daily for 3 days, then 2 tabs daily for 3 days, then 1 tab daily for 3 days with food. (Patient not taking: Reported on 01/07/2023) levalbuterol tartrate HFA 45 mcg/actuation inhaler Inhale 2 Puffs as instructed every 4 hours as needed for Wheezing/Shortness of Breath. (Patient not taking: Reported on 01/07/2023) No current facility-administered medications for this visit. Review of Systems Objective BP 112/64 Pulse 85 Temp 36.9 C (98.4 F) Resp 18 Wt 79.8 kg (176 lb) SpO2 99% BMI 27.57 kg/m Physical Exam Constitutional: Appearance: Normal appearance. HENT: Head: Normocephalic. Comments: Tender over frontal sinuses more than maxillary sinuses Eyes: Conjunctiva/sclera: Conjunctivae normal. Cardiovascular: Rate and Rhythm: Normal rate and regular rhythm. Heart sounds: Normal heart sounds. Pulmonary: Effort: Pulmonary effort is normal. Breath sounds: Normal breath sounds. Skin: General: Skin is warm and dry. Neurological: General: No focal deficit present. Mental Status: She is alert and oriented to person, place, and time. Psychiatric: Mood and Affect: Mood normal. Behavior: Behavior normal. Thought Content: Thought content normal. Judgment: Judgment normal. Assessment and Plan Encounter Diagnosis ICD-10-CM 1. Sinobronchitis J32.9 J40 2. Moderate persistent extrinsic asthma without complication J45.40 3. Otalgia of both ears H92.03 4. Benign paroxysmal positional vertigo, unspecified laterality H81.10 Above issues addressed with patient. Patient involved in shared decision making for management of medical issues. History and medications reviewed. Epic updated as needed Refills and/or prescriptions taken care of and meds adjusted as indicated after reviewed history, exam and labs. Health Maintenance reviewed. Updated record and/or ordered tests as recorded. Encouraged on efforts at healthy diet and regular exercise and adequate sleep. Martha Bates MD documented in this encounter [facility] 12-10-2022 Miscellaneous Notes Noted. Closing as no further call in. Pt tested + for covid 11/27/22 & took molnupuravir X 5days. Pt states since she finished the antiviral her spo2 level has dropped a little to 96-97%. Pt states she still has a cough but it is slightly improving. Pt concerned bc she tested + for covid again, explained to pt that some people continue to test + for a period of time but it doesn't mean they have an active infection, it could be from last covid infection. Pt will continue to monitor & will call if sx are not improving & start to become worse. Tiffany Ross LPN documented in this encounter [facility] 11-27-2022 Note HNO ID: [id number] Author: Haylie Ramirez APRN.BRICK CHIMNEY SUPERVISOR Service: ? Author Type: Nurse Practitioner Type: Progress Notes Filed: 11/27/2022 11:10 AM Note Text: VIRTUAL VISIT PROGRESS NOTE This is a virtual visit using Reading Room video visit. It required patient-provider interaction for the medical decision making as documented below. Maddie Mcallister is a 52 year old female seen for positive covid test at home. Patient reports that symptoms include chest congestion, cough, wheezing starting last night. Patient reports that her covid test at home was almost immediately positive. Patient denies use of OTC medication. HISTORY REVIEWED (electronic chart updated): PAST MEDICAL HISTORY Diagnosis Date Chronic frontal sinusitis last CT 11/2012: STABLE POSTOPERATIVE CHANGES FROM PRIOR SINONASAL SURGERY. Concussion 07/2013 post-concussive symptoms; 07/2013 and 01/2014 Concussion month of may 2016 Disc degeneration 2011 bulging,cervical GERD (gastroesophageal reflux disease) Dx 2000 Liver cyst multiple hepatic cysts Lower GI hemorrhage 2008 normal colonoscopy Renal cyst Simple right renal Unspecified asthma(493.90) EIA in her 20's Unspecified epilepsy without mention of intractable epilepsy Epilepsy, last episode 20 years PAST SURGICAL HISTORY Procedure Laterality Date COLONOSCOPY FLX DX W/COLLJ SPEC WHEN PFRMD normal COLONOSCOPY FLX DX W/COLLJ SPEC WHEN PFRMD 07/14/2018 Colonoscopy ESOPHAGOGASTRODUODENOSCOPY TRANSORAL DIAGNOSTIC 07/14/2018 EGD PAST SURGICAL HISTORY OF 2005 Vein extraction Left Bicep PAST SURGICAL HISTORY OF 2011 Left Endoscopic Sinus Surgery SINUS SURGERY PROC UNLISTED 2001 FAMILY HISTORY Problem Relation Age of Onset Hypertension Mother Asthma Mother Heart Father Emphysema Father other (Lung Cancer) Father Smoker other (heart attack) Father Social History Tobacco Use Smoking status: Never Smokeless tobacco: Never Substance Use Topics Alcohol use: No Drug use: No Current Outpatient Medications Medication Sig albuterol HFA (PROAIR HFA) 90 mcg/actuation inhaler Inhale 2 Puffs as instructed every 6 hours as needed. albuterol (PROVENTIL) 2.5 mg /3 mL (0.083 %) nebulizer solution Use 3 mL via nebulizer every 4 hours as needed for wheezing/shortness of breath. Use over 5-15minutes. benzonatate (TESSALON PERLE) 100 mg capsule Take 2 capsules by mouth three times daily as needed. predniSONE (DELTASONE) 10 mg tablet Take 4 tabs daily for 3 days, then 2 tabs daily for 3 days, then 1 tab daily for 3 days with food. TEGRETOL XR 100 mg 12 hr tablet Take 1 tablet by mouth twice daily. Take with 200 mg tablets. zonisamide (ZONEGRAN) 50 mg capsule Take 1 capsule by mouth every morning AND 2 capsules daily at bedtime. carBAMazepine XR (TEGRETOL XR) 200 mg 12 hr tablet Take 1 tablet by mouth twice daily. levalbuterol tartrate HFA 45 mcg/actuation inhaler Inhale 2 Puffs as instructed every 4 hours as needed for Wheezing/Shortness of Breath. MOMETASONE/FORMOTEROL (DULERA INHALATION) Inhale as instructed. EPINEPHrine (EPIPEN 2-DEMI) 0.3 mg/0.3 mL auto-injector Inject 0.3 mL intramuscularly as needed (for allergic reaction.Seek emergent medical care immediately after use.Disp:one 2-pack w/it trainer). fluticasone (FLONASE) 50 mcg/actuation nasal spray Use 2 Sprays in each nostril every morning. Rinse mouth after use. montelukast (SINGULAIR) 10 mg tablet take 1 tablet by mouth at bedtime Cholecalciferol, Vitamin D3, 5,000 unit cap Take 1 capsule by mouth once daily. cetirizine hcl(ZYRTEC 10 MG TAB) Take one(1) tablet daily. No current facility-administered medications for this visit. ALLERGIES Allergen Reactions Latex Rash Amoxicillin Hives Contrast Dye GI Upset [place] warm Doxycycline GI Upset Environmental Aller* Other: See Comments Cats, dogs, dust mites, molds, trees, grasses, weeds, ragweed Prilosec [Omeprazol* Contraindication-Medical Surgical Adverse reaction with tegretol Shellfish Other: See Comments Crab, scallop, oyster. Shrimp with exercise causes her throat to swell Trileptal [Oxcarbaz* Sodium level decreases REVIEW OF SYSTEMS: SEE HPI PHYSICAL EXAMINATION: VIDEO EXAM: (if completed, performed via video enabled technology) GENERAL: alert and appropriate, in no distress, well-hydrated, well nourished, and happy, smiling, interactive NOSE: external nose normal without rhinorrhea OROPHARYNX: moist mucus membranes RESPIRATORY: breathing non-labored There are no Patient Instructions on file for this visit. I spent a total of 15 minutes on the date of the service which included preparing to see the patient, [id number] patient care, completing clinical documentation, obtaining and/or reviewing separately obtained history, performing a medically appropriate examination, counseling and educating the patient/family/caregiver, ordering medications, tests, or procedures, (more content not included)... [facility] 11-27-2022 Instructions Haylie Ramirez APRN.BRICK CHIMNEY SUPERVISOR - 11/27/2022 11:04 AM EST Fact Sheet for Patients And Caregivers Emergency Use Authorization (EUA) Of Molnupiravir For Coronavirus Disease 2019 (COVID-19) What is the most important information I should know about molnupiravir? Molnupiravir may cause serious side effects, including: Molnupiravir may cause harm to your unborn baby. It is not known if molnupiravir will harm your baby if you take molnupiravir during . Molnupiravir is not recommended for use in . Molnupiravir has not been studied in . Molnupiravir was studied in animals only. When molnupiravir was given to animals, molnupiravir caused harm to their unborn babies. You and your healthcare provider may decide that you should take molnupiravir during if there are no other COVID-19 treatment options authorized by the FDA that are accessible or clinically appropriate for you. If you and your healthcare provider decide that you should take molnupiravir during , you and your healthcare provider should discuss the known and potential benefits and the potential risks of taking molnupiravir during . For individuals who are able to become : You should use a reliable method of control (contraception) consistently and correctly during treatment with molnupiravir and for 4 days after the last dose of molnupiravir. Talk to your healthcare provider about reliable control methods. Before starting treatment with molnupiravir your healthcare provider may do a test to see if you are before starting treatment with molnupiravir. Tell your healthcare provider right away if you become or think you may be during treatment with molnupiravir. Surveillance Program: There is a surveillance program for individuals who take molnupiravir during . The purpose of this program is to collect information about the health of you and your baby. Talk to your healthcare provider about how to take part in this program. If you take molnupiravir during and you agree to participate in the surveillance program and allow your healthcare provider to share your information with [employer], then your healthcare provider will report your use of molnupiravir during to [employer]. by calling or [email or web address]. For individuals who are sexually active with partners who are able to become : It is not known if molnupiravir can affect sperm. While the risk is regarded as low, animal studies to fully assess the potential for molnupiravir to affect the babies of males treated with molnupiravir have not been completed. A reliable method of control (contraception) should be used consistently and correctly during treatment with molnupiravir and for at least 3 months after the last dose. The risk to sperm beyond 3 months is not known. Studies to understand the risk to sperm beyond 3 months are ongoing. Talk to your healthcare provider about reliable control methods. Talk to your healthcare provider if you have questions or concerns about how molnupiravir may affect sperm. You are being given this fact sheet because your healthcare provider believes it is necessary to provide you with molnupiravir for the treatment of adults with molz-rr-zjectumj coronavirus disease 2019 (COVID-19) with positive results of direct SARS-CoV-2 viral testing, and who are at high risk for progressing to severe COVID-19 including hospitalization or , and for whom other COVID-19 treatment options authorized by the FDA are not accessible or clinically appropriate. The U.S. Food and Drug Administration (FDA) has issued an Emergency Use Authorization (EUA) to make molnupiravir available during the COVID-19 pandemic (for more details about an EUA please see What is an Emergency Use Authorization? at the end of this document). Molnupiravir is not an FDA-approved medicine in the [place]. Read this Fact Sheet for information about molnupiravir. Talk to your healthcare provider about your options if you have any questions. It is your choice to take molnupiravir. What is COVID-19? COVID-19 is caused by a virus called a coronavirus. You can get COVID-19 through close contact with another person who has the virus. COVID-19 illnesses have ranged from very gouf-mi-ixqlol, including illness resulting in . While information so far suggests that most COVID-19 illness is mild, serious illness can happen and may cause some of your other medical conditions to become worse. Older people and people of all ages with severe, long lasting (chronic) medical conditions like heart disease, lung disease and diabetes, for example seem to be at higher risk of being hospitalized for COVID-19. What is molnupiravir? Molnupiravir is an investigational medicine used to treat ntvk-hi-dkqflorz COVID-19 in adults: with positive results of direct SARS-CoV-2 viral testing, and who are at high risk for progressing to severe COVID-19 including hospitalization or , and for whom other COVID-19 treatment options authorized by the FDA are not accessible or clinically appropriate. The FDA has authorized the emergency use of molnupiravir for the treatment of mild-tomoderate COVID-19 in adults under an EUA. For more information on EUA, see the What is an Emergency Use Authorization (EUA)? section at the end of this Fact Sheet. Molnupiravir is not authorized: for use in people less than 18 years of age. for prevention of COVID-19. for people needing hospitalization for COVID-19. for use for longer than 5 consecutive days. What should I tell my healthcare provider before I take molnupiravir? Tell your healthcare provider if you: Have any allergies Are or plan to breastfeed Have any serious illnesses Are taking any medicines (prescription, woji-qyb-sgdjaak, vitamins, or herbal products). How do I take molnupiravir? Take molnupiravir exactly as your healthcare provider tells you to take it. Take 4 capsules of molnupiravir every 12 hours (for example, at 8 am and at 8 pm) Take molnupiravir for 5 days. It is important that you complete the full 5 days of treatment with molnupiravir. Do not stop taking molnupiravir before you complete the full 5 days of treatment, even if you feel better. Take molnupiravir with or without food. You should stay in isolation for as long as your healthcare provider tells you to. Talk to your healthcare provider if you are not sure about how to properly isolate while you have COVID-19. Swallow molnupiravir capsules whole. Do not open, break, or crush the capsules. If you cannot swallow capsules whole, tell your healthcare provider. What to do if you miss a dose: If it has been less than 10 hours since the missed dose, take it as soon as you remember If it has been more than 10 hours since the missed dose, skip the missed dose and take your dose at the next scheduled time. Do not double the dose of molnupiravir to make up for a missed dose. What are the important possible side effects of molnupiravir? Possible side effects of molnupiravir are: See, What is the most important information I should know about molnupiravir? diarrhea nausea dizziness These are not all the possible side effects of molnupiravir. Not many people have taken molnupiravir. Serious and unexpected side effects may happen. This medicine is still being studied, so it is possible that all of the risks are not known at this time. What other treatment choices are there? Like molnupiravir, FDA may allow for the emergency use of other medicines to treat people with COVID-19. Go to https://www.fda.gov/emergency-pre ieqnxpzwz-ohn-eaaenmql/mcm-legalr wymcgxkno-prw-dvufai-framework/em yamfgpn-fsg-zqrngbxiktbet for more information. It is your choice to be treated or not to be treated with molnupiravir. Should you decide not to take it, it will not change your standard medical care. What if I am ? is not recommended during treatment with molnupiravir and for 4 days after the last dose of molnupiravir. If you are or plan to breastfeed, talk to your healthcare provider about your options and specific situation before taking molnupiravir. How do I report side effects with molnupiravir? Contact your healthcare provider if you have any side effects that bother you or do not go away. Report side effects to FDA MedWatch at www.fda.gov/medwatch or call 3-408-TXG-1967 ( ). How should I store molnupiravir? Store molnupiravir capsules at room temperature between 68 F to 77 F (20 C to 25 C). Keep molnupiravir and all medicines out of the reach of children and pets. How can I learn more about COVID-19? Ask your healthcare provider. Visit www.cdc.gov/COVID19 Contact your local or state public health department. Call [employer] at (toll free in the [place] Visit www.[employer]uity What Is an Emergency Use Authorization (EUA)? The [place] FDA has made molnupiravir available under an emergency access mechanism called an Emergency Use Authorization (EUA) The EUA is supported by a Medical Bill Processor of Health and Human Service ([facility]) declaration that circumstances exist to justify emergency use of drugs and biological products during the COVID-19 pandemic. Molnupiravir for the treatment of oqpo-fu-nmvinsrj COVID-19 in adults with positive results of direct SARS-CoV-2 viral testing, who are at high risk for progression to severe COVID-19, including hospitalization or , and for whom alternative COVID-19 treatment options authorized by FDA are not accessible or clinically appropriate, has not undergone the same type of review as an FDA-approved product. In issuing an EUA under the COVID-19 public health emergency, the FDA has determined, among other things, that based on the total amount of scientific evidence available including data from adequate and well-controlled clinical trials, if available, it is reasonable to believe that the product may be effective for diagnosing, treating, or preventing COVID-19, or a serious or life-threatening disease or condition caused by COVID19; that the known and potential benefits of the product, when used to diagnose, treat, or prevent such disease or condition, outweigh the known and potential risks of such product; and that there are no adequate, approved, and available alternatives. All of these criteria must be met to allow for the product to be used in the treatment of patients during the COVID-19 pandemic. The EUA for molnupiravir is in effect for the duration of the COVID-19 declaration justifying emergency use of molnupiravir, unless terminated or revoked (after which molnupiravir may no longer be used under the EUA). For patent information: www.[employer]/research/patent Copyright 2020 [employer] [place], [place] and its affiliates. All rights reserved. [id number] Issued: 11/23/2021 documented in this encounter [facility] 11-27-2022 History of Present illness Narrative VIRTUAL VISIT PROGRESS NOTE This is a virtual visit using Reading Room video visit. It required patient-provider interaction for the medical decision making as documented below. Maddie Mcallister is a 52 year old female seen for positive covid test at home. Patient reports that symptoms include chest congestion, cough, wheezing starting last night. Patient reports that her covid test at home was almost immediately positive. Patient denies use of OTC medication. HISTORY REVIEWED (electronic chart updated): PAST MEDICAL HISTORY Diagnosis Date Chronic frontal sinusitis last CT 11/2012: STABLE POSTOPERATIVE CHANGES FROM PRIOR SINONASAL SURGERY. Concussion 07/2013 post-concussive symptoms; 07/2013 and 01/2014 Concussion month of may 2016 Disc degeneration 2012 bulging,cervical GERD (gastroesophageal reflux disease) Dx 1999 Liver cyst multiple hepatic cysts Lower GI hemorrhage 2008 normal colonoscopy Renal cyst Simple right renal Unspecified asthma(493.90) EIA in her 20's Unspecified epilepsy without mention of intractable epilepsy Epilepsy, last episode 20 years PAST SURGICAL HISTORY Procedure Laterality Date COLONOSCOPY FLX DX W/COLLJ SPEC WHEN PFRMD normal COLONOSCOPY FLX DX W/COLLJ SPEC WHEN PFRMD 07/14/2018 Colonoscopy ESOPHAGOGASTRODUODENOSCOPY TRANSORAL DIAGNOSTIC 07/14/2018 EGD PAST SURGICAL HISTORY OF 2005 Vein extraction Left Bicep PAST SURGICAL HISTORY OF 2011 Left Endoscopic Sinus Surgery SINUS SURGERY PROC UNLISTED 2001 FAMILY HISTORY Problem Relation Age of Onset Hypertension Mother Asthma Mother Heart Father Emphysema Father other (Lung Cancer) Father Smoker other (heart attack) Father Social History Tobacco Use Smoking status: Never Smokeless tobacco: Never Substance Use Topics Alcohol use: No Drug use: No Current Outpatient Medications Medication Sig albuterol HFA (PROAIR HFA) 90 mcg/actuation inhaler Inhale 2 Puffs as instructed every 6 hours as needed. albuterol (PROVENTIL) 2.5 mg /3 mL (0.083 %) nebulizer solution Use 3 mL via nebulizer every 4 hours as needed for wheezing/shortness of breath. Use over 5-15minutes. benzonatate (TESSALON PERLE) 100 mg capsule Take 2 capsules by mouth three times daily as needed. predniSONE (DELTASONE) 10 mg tablet Take 4 tabs daily for 3 days, then 2 tabs daily for 3 days, then 1 tab daily for 3 days with food. TEGRETOL XR 100 mg 12 hr tablet Take 1 tablet by mouth twice daily. Take with 200 mg tablets. zonisamide (ZONEGRAN) 50 mg capsule Take 1 capsule by mouth every morning AND 2 capsules daily at bedtime. carBAMazepine XR (TEGRETOL XR) 200 mg 12 hr tablet Take 1 tablet by mouth twice daily. levalbuterol tartrate HFA 45 mcg/actuation inhaler Inhale 2 Puffs as instructed every 4 hours as needed for Wheezing/Shortness of Breath. MOMETASONE/FORMOTEROL (DULERA INHALATION) Inhale as instructed. EPINEPHrine (EPIPEN 2-DEMI) 0.3 mg/0.3 mL auto-injector Inject 0.3 mL intramuscularly as needed (for allergic reaction.Seek emergent medical care immediately after use.Disp:one 2-pack w/it trainer). fluticasone (FLONASE) 50 mcg/actuation nasal spray Use 2 Sprays in each nostril every morning. Rinse mouth after use. montelukast (SINGULAIR) 10 mg tablet take 1 tablet by mouth at bedtime Cholecalciferol, Vitamin D3, 5,000 unit cap Take 1 capsule by mouth once daily. cetirizine hcl(ZYRTEC 10 MG TAB) Take one(1) tablet daily. No current facility-administered medications for this visit. ALLERGIES Allergen Reactions Latex Rash Amoxicillin Hives Contrast Dye GI Upset [place] warm Doxycycline GI Upset Environmental Aller* Other: See Comments Cats, dogs, dust mites, molds, trees, grasses, weeds, ragweed Prilosec [Omeprazol* Contraindication-Medical Surgical Adverse reaction with tegretol Shellfish Other: See Comments Crab, scallop, oyster. Shrimp with exercise causes her throat to swell Trileptal [Oxcarbaz* Sodium level decreases REVIEW OF SYSTEMS: SEE HPI PHYSICAL EXAMINATION: VIDEO EXAM: (if completed, performed via video enabled technology) GENERAL: alert and appropriate, in no distress, well-hydrated, well nourished, and happy, smiling, interactive NOSE: external nose normal without rhinorrhea OROPHARYNX: moist mucus membranes RESPIRATORY: breathing non-labored There are no Patient Instructions on file for this visit. I spent a total of 15 minutes on the date of the service which included preparing to see the patient, zfvi-bf-qpsx patient care, completing clinical documentation, obtaining and/or reviewing separately obtained history, performing a medically appropriate examination, counseling and educating the patient/family/caregiver, ordering medications, tests, or procedures, communicating results to the patient/family/caregiver, and care coordination (not separately reported) Molnupiravir Eligibility and Patient Discussion [facility] Formulary Restriction Criteria: Adult outpatients 18 years and older with ALL of the following: [x] Patient has positive SARS-COV-2 viral test (PCR or antigen test) during current illness [x] Patient has symptoms for 5 days or less [x] Not requiring hospitalization at any time for management of COVID-19 [x] Not requiring supplemental oxygen or a change in baseline supplemental oxygen [x] Not utilized for pre-exposure or post-exposure prophylaxis for prevention of COVID-19 [x] Patient is not or lactating [x] Meeting at least one of the criteria for high risk of progression to severe COVID-19: [] Age over 65 years [] Cancer [] Chronic kidney disease [] Chronic liver disease [x] Chronic lung diseases, including cystic fibrosis [] Dementia or other neurological conditions [] Diabetes (type 1 or type 2) [] Disabilities, including Down syndrome and neurodevelopmental disorders [] Heart conditions [] HIV infection [] Immunocompromised state [] Mental health conditions [] Medical related technological dependence (tracheostomy, gastrostomy, or positive pressure ventilation (not related to COVID) [] Overweight and obesity (BMI greater or equal to 25 for adults) [] Physical inactivity [] Sickle cell disease or thalassemia [] Smoking, current or former [] Solid organ or blood stem cell transplant [] Stroke or cerebrovascular disease [] Substance use disorders [] Tuberculosis [] People from racial and ethnic minority groups Criteria above are met: Yes Date of Positive Test:11/26/2022 Date of Symptom Onset: 11/26/2022 Patient received COVID vaccine: Yes / status reviewed: Females: [x] Patient is not currently and there is no possibility the patient could be (select one of the following): [] test does not need to be confirmed in patients who have undergone permanent sterilization, are currently using an intrauterine system or contraceptive implant, or in whom is not possible. [] Patients not meeting conditions above: assess whether the patient is based on the first day of the last menstrual period in individuals who have regular menstrual cycles, is using reliable method of contraception correctly and consistently or have had a negative test [] A test is recommended if the individual has irregular menstrual cycles, is unsure of the first day of the last menstrual period or is not using effective contraception correctly and consistently [] Patient is not currently . is not recommended during treatment and for four days after final dose of molnupiravir. [] Females have been advised to use a reliable method of contraception correctly and consistently for the duration of treatment and for four days after the last dose of molnupiravir Males: [] Sexually active male with partner(s) of childbearing potential has been advised to use a reliable method of contraception correctly and consistently for intercourse for the duration of treatment and for three months after the last dose of molnupiravir I have discussed the use of the investigational therapeutic, molnupiravir, for the treatment of mild to moderate COVID-19 and its use under Emergency Use Authorization with the patient. The patient was informed that molnupiravir is not an FDA approved drug and that it is authorized for use under this Emergency Use Authorization. The patient was also informed of the significant known benefits and potential risks of molnupiravir, and the extent to which such potential risks and benefits are unknown. The patient was informed that there is mandatory reporting of all medication errors and serious adverse events potentially related to molnupiravir treatment within 7 calendar days from the onset of the event and that events up to 28 days after completion of therapy need to be reported. The discussion included alternatives to receiving molnupiravir, including clinical trials, and potential the risks and benefits of those alternatives. The patient was provided electronically with the Fact Sheet for Patients, Parents and Caregivers . The patient was also instructed that in addition to the treatment with molnupiravir, he/she should continue to self-isolate and use infection control measures (e.g., wear mask, isolate, social distance, avoid sharing personal items, clean and disinfect high touch surfaces, and frequent handwashing) according to CDC guidelines. The patient stated understanding and gave verbal consent to proceeding with molnupiravir treatment. Haylie Ramirez APRN.CNP November 27, 2022 11:02 AM documented in this encounter [facility] 11-13-2022 Note HNO ID: [id number] Author: RT Breanna(R) Service: Radiology Author Type: Technologist Type: Progress Notes Filed: 11/13/2022 5:16 PM Note Text: Radiology Service Progress Note PATIENT NAME: Maddie Mcallister DATE OF SERVICE: November 13, 2022 TIME: 5:07 PM PATIENT IDENTITY VERIFICATION COMPLETED USING TWO (2) IDENTIFIERS: Name and Date of confirmed by patient verbally. FALL SCREENING: Has the patient had 2 falls in the last year or 1 fall with injury or currently using an Ambulatory Assistive Device (Walker, Cane, Wheelchair, Crutches, etc.)? No PATIENT GENDER DATA: Female. status: : No status: NO. PATIENT RELEVANT IMPLANT DATA REVIEWED: Yes RADIOLOGY DEPARTMENT: General X-ray: Exam(s) Completed: Chest X-Ray PERIPHERAL IV DATA: Not applicable SIGNED BY: RT Breanna(R) November 13, 2022 5:07 PM [facility] 10-20-2022 Instructions Crow Dave APRN.CNP - 10/20/2022 2:52 PM EST [facility] PATIENT INFO BRONCHITIS OVERVIEW Bronchitis develops when there is swelling and irritation of the bronchi, the large tubes that carry air to the lungs. There are two types of bronchitis: acute (sudden onset) and chronic (long-standing). Acute bronchitis often occurs with a viral infection, such as the common cold, and is sometimes called a chest cold . The most common symptom of acute bronchitis is a nagging cough. Treatment of acute bronchitis usually involves treating the symptoms, such as sore throat and congestion. Antibiotics do not help to eliminate acute bronchitis caused by a virus. Antiviral agents are useful in some cases of acute bronchitis due to influenza, but there are antiviral agents for other forms of viral bronchitis. BRONCHITIS CAUSES Most cases of bronchitis are caused by a viral infection of the upper airways, such as the common cold or the flu. Less commonly, a bacterium such as pertussis (whooping cough) is the cause. BRONCHITIS SYMPTOMS The most common symptoms of acute bronchitis include: A persistent cough; this may last 10 to 20 days Some people cough up mucus, which may be clear, yellow, or green in color Fever is not common in people with acute bronchitis. However, having a fever can be a sign of another condition, such as the flu or pneumonia. Conditions with similar features -- There are other conditions that have symptoms similar to those of acute bronchitis. Chronic cough -- A persistent cough that lasts more than eight weeks is considered a chronic cough, which is discussed in detail elsewhere. Chronic bronchitis -- Chronic bronchitis is defined as a cough that occurs on most days of the month for at least three months of the year during two consecutive years. Pneumonia -- Signs of pneumonia include fever and a fast heart and breathing rate. Postnasal drip -- Postnasal drip occurs when secretions drain from the sinuses into the throat. This can cause the throat to feel irritated, which causes you to feel like you need to clear your throat frequently. Postnasal drip can be caused by the common cold, allergies, sinusitis, or environmental irritants. BRONCHITIS DIAGNOSIS Most people who have a persistent cough after an upper respiratory infection (cold) do not need to see a healthcare provider. Diagnostic testing, such as x-rays, cultures, and blood tests, are not usually needed for people with acute bronchitis. However, testing may be recommended if your diagnosis is not clear based upon your examination or if another condition, such as pneumonia, is suspected. When to seek help -- You should call your healthcare provider if you have any of the following: Fever (temperature greater than 100.4 F or 38 C) A cough that lasts longer than 10 days Chest pain with coughing, difficulty breathing, or coughing up blood A barking cough that makes it hard to speak, especially if it persists Cough accompanied by unexplained weight loss People who are older than 75 do not always have a fever or other concerning symptoms. If you are over 75 years and you have a persistent cough, you should call your clinician to determine if and when an office visit is recommended. BRONCHITIS TREATMENT Relief of symptoms -- There is no specific treatment for bronchitis, but there are a few treatments available for the common cold. A nonsteroidal antiinflammatory drug (ibuprofen, naproxen), aspirin, or acetaminophen (Tylenol ) can help to relieve the pain of a sore throat or headache. Pseudoephedrine is a decongestant that can improve nasal congestion. Most drugstores in the [place] carry pseudoephedrine behind the counter, so you must ask for it from the pharmacist (a prescription is not required). Other decongestants, such as phenylephrine, are not as effective as pseudoephedrine. Antihistamines such as diphenhydramine (Benadryl ) may also help, but can cause side effects such as drowsiness and drying of the eyes, nose, and mouth. Heated, humidified, air can improve symptoms of nasal congestion and runny nose, and has few to no side effects. Cough suppressants such as dextromethorphan may be helpful. Antibiotics -- Antibiotics are NOT helpful for most people with bronchitis since the illness is typically caused by a virus. Antibiotics treat bacterial, not viral infections. Antibiotics may be helpful for some patients with other chronic diseases. Many people request antibiotics in the hopes that it will get rid of the cough, and some people even think that antibiotics have helped on previous occasions. However, there is no benefit of antibiotics for most cases of bronchitis. PREVENTING THE SPREAD OF ILLNESS Hand washing is an essential and highly effective way to prevent the spread of infection. Wet your hands with water and plain soap and rub them together for 15 to 30 seconds. Pay special attention to the fingernails, between the fingers, and the wrists. Rinse your hands thoroughly, and dry with a single use towel. Alcohol-based hand rubs are a good alternative for disinfecting hands if a sink is not available. Spread the hand rub over the entire surface of your hands, fingers, and wrists until dry. You can use hand rubs repeatedly without irritating the skin or losing effectiveness. Hand rubs are available as a liquid or wipe in small, portable sizes that are easy to carry in a pocket or handbag. When a sink is available, you should wash visibly soiled hands with soap and water. Wash your hands before preparing food and eating, and after going to the bathroom, and after coughing, blowing the nose, or sneezing. While it is not always possible to limit contact with people who are ill, avoid touching your eyes, nose, or mouth after direct contact, when possible. In addition, use a tissue to cover your mouth when sneezing or coughing. Throw away used tissues promptly and then wash your hands. Sneezing/coughing into the sleeve of your clothing (at the inner elbow) is another way of containing sprays of saliva and secretions and does not contaminate your hands. Sneezing and coughing without covering your mouth can spread infection to anyone within 6 feet. documented in this encounter [facility] 10-20-2022 History of Present illness Narrative Subjective HPI Nontoxic-appearing female presents urgent care chief complaint cough sore throat Chest congestion. Patient states was seen here this week. Placed on Tessalon Perles. Negative flu COVID test. Is currently completing a prednisone taper. Presents today due to worsening cough. Patient states she has ran out of her rescue inhaler. States cough is bothersome at night. Denies any significant pain. She does have tightness in her chest with coughing. Denies any fever body aches chills productive cough chest pain shortness of breath currently pleuritic pain hemoptysis nausea vomiting abdominal pain change in bowel or bladder habits. Past medical history prescription medication use and allergies reviewed. .Patient presents with: Cough: Cough, congestion, ST and drainage x 4 days PAST MEDICAL HISTORY Diagnosis Date Chronic frontal sinusitis last CT 11/2012: STABLE POSTOPERATIVE CHANGES FROM PRIOR SINONASAL SURGERY. Concussion 07/2013 post-concussive symptoms; 07/2013 and 01/2014 Concussion month of may 2016 Disc degeneration 2012 bulging,cervical GERD (gastroesophageal reflux disease) Dx 2000 Liver cyst multiple hepatic cysts Lower GI hemorrhage 2008 normal colonoscopy Renal cyst Simple right renal Unspecified asthma(493.90) EIA in her 20's Unspecified epilepsy without mention of intractable epilepsy Epilepsy, last episode 20 years PAST SURGICAL HISTORY Procedure Laterality Date COLONOSCOPY FLX DX W/COLLJ SPEC WHEN PFRMD normal COLONOSCOPY FLX DX W/COLLJ SPEC WHEN PFRMD 07/14/2018 Colonoscopy ESOPHAGOGASTRODUODENOSCOPY TRANSORAL DIAGNOSTIC 07/14/2018 EGD PAST SURGICAL HISTORY OF 2006 Vein extraction Left Bicep PAST SURGICAL HISTORY OF 2011 Left Endoscopic Sinus Surgery SINUS SURGERY PROC UNLISTED 2002 ALLERGIES Latex, Amoxicillin, Contrast Dye, Doxycycline, Environmental Allergies [Other], Prilosec [Omeprazole], Shellfish, and Trileptal [Oxcarbazepine] MEDICATIONS albuterol (PROVENTIL) 2.5 mg /3 mL (0.083 %) nebulizer solution Use 3 mL via nebulizer every 4 hours as needed for wheezing/shortness of breath. Use over 5-15minutes. benzonatate (TESSALON PERLE) 100 mg capsule Take 2 capsules by mouth three times daily as needed. predniSONE (DELTASONE) 10 mg tablet Take 4 tabs daily for 3 days, then 2 tabs daily for 3 days, then 1 tab daily for 3 days with food. TEGRETOL XR 100 mg 12 hr tablet Take 1 tablet by mouth twice daily. Take with 200 mg tablets. zonisamide (ZONEGRAN) 50 mg capsule Take 1 capsule by mouth every morning AND 2 capsules daily at bedtime. carBAMazepine XR (TEGRETOL XR) 200 mg 12 hr tablet Take 1 tablet by mouth twice daily. levalbuterol tartrate HFA 45 mcg/actuation inhaler Inhale 2 Puffs as instructed every 4 hours as needed for Wheezing/Shortness of Breath. MOMETASONE/FORMOTEROL (DULERA INHALATION) Inhale as instructed. EPINEPHrine (EPIPEN 2-DEMI) 0.3 mg/0.3 mL auto-injector Inject 0.3 mL intramuscularly as needed (for allergic reaction.Seek emergent medical care immediately after use.Disp:one 2-pack w/it trainer). fluticasone (FLONASE) 50 mcg/actuation nasal spray Use 2 Sprays in each nostril every morning. Rinse mouth after use. montelukast (SINGULAIR) 10 mg tablet take 1 tablet by mouth at bedtime Cholecalciferol, Vitamin D3, 5,000 unit cap Take 1 capsule by mouth once daily. cetirizine hcl(ZYRTEC 10 MG TAB) Take one(1) tablet daily. FAMILY HISTORY Problem Relation Age of Onset Hypertension Mother Asthma Mother Heart Father Emphysema Father other (Lung Cancer) Father Smoker other (heart attack) Father Social History Tobacco Use Smoking status: Never Smokeless tobacco: Never Substance Use Topics Alcohol use: No Drug use: No BP 134/84 Pulse 80 Temp 37 C (98.6 F) (Tympanic) Resp 18 Wt 80.7 kg (178 lb) SpO2 97% BMI 27.88 kg/m Review of Systems Constitutional: Negative for chills, fever and malaise/fatigue. HENT: Positive for congestion and sore throat. Negative for ear discharge, ear pain and sinus pain. Eyes: Negative for blurred vision, pain, discharge and redness. Respiratory: Positive for cough. Negative for hemoptysis, sputum production, shortness of breath, wheezing and stridor. Cardiovascular: Negative for chest pain. Gastrointestinal: Negative for abdominal pain, diarrhea, nausea and vomiting. Musculoskeletal: Negative for myalgias. Skin: Negative for itching and rash. Neurological: Negative for dizziness and headaches. Objective Physical Exam Constitutional: General: She is not in acute distress. Appearance: She is not diaphoretic. HENT: Head: Normocephalic. Nose: Congestion present. Mouth/Throat: Mouth: Mucous membranes are moist. Pharynx: Oropharynx is clear. No oropharyngeal exudate or posterior oropharyngeal erythema. Eyes: Conjunctiva/sclera: Conjunctivae normal. Pupils: Pupils are equal, round, and reactive to light. Cardiovascular: Rate and Rhythm: Normal rate and regular rhythm. Heart sounds: Normal heart sounds. Pulmonary: Effort: Pulmonary effort is normal. No tachypnea, accessory muscle usage or respiratory distress. Breath sounds: Normal breath sounds. No stridor. No wheezing, rhonchi or rales. Abdominal: Palpations: Abdomen is soft. Tenderness: There is no abdominal tenderness. Musculoskeletal: Cervical back: Normal range of motion and neck supple. No rigidity or tenderness. Lymphadenopathy: Cervical: No cervical adenopathy. Skin: General: Skin is warm and dry. Neurological: Mental Status: She is alert and oriented to person, place, and time. ASSESSMENT/PLAN: 1. URI with cough and congestion - ICD9: 465.9, ICD10: J06.9 Patient diagnosed with URI cough and congestion. We discussed cough suppressant strategies. Rescue inhaler will be prescribed. Red flags for prompt reevaluation discussed. Patient was educated on supportive therapies. Patient will follow up with primary care provider as needed. Patient was instructed to immediately proceed to emergency room for any new, worsening, or symptoms lasting longer than anticipated. The patient's clinical presentation is otherwise unremarkable at this time. Based on exam and clinical finding, the patient is stable for discharge. Plan of care was discussed with patient. Patient verbalizes understanding and agrees to plan of care. This note was generated using Checkr software. It may contain errors in wording, punctuation, or spelling. Crow Dave APRN.GENA documented in this encounter [facility] 10-18-2022 Instructions Beba Roper APRN.CNP - 10/18/2022 6:44 PM EST Rest, increase water intake Motrin or Tylenol as needed for fever or pain. Salt water gargles, chloraseptic spray or lozenges as needed for sore throat. Warm beverages, honey. Nasal saline spray as needed Cool mist humidifier at night Nebulizer treatments every 4-6 hours as needed Tessalon Perles 1-2 every 8 hours, do not combine this with robitussin or delsym Continue prednisone taper and prescribed inhalers as directed * Seek medical care immediately, call 911, go to ER if you have chest pain, difficulty breathing, shortness of breath, inability to swallow. documented in this encounter [facility] 10-18-2022 History of Present illness Narrative Subjective The history is provided by the patient. No cyber policy and strategy planner was used. CHRISTA Maddie Mcallister is a 52 year old female who presents today for CC of cough, congestion and sore throat that has been present for one day. She has used prednisone taper and prescribed inhalers. 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 She has a history of asthma. Currently on prednisone for rib injury, 2 negative at home covid BP 118/82 Pulse 80 Temp 36.7 C (98.1 F) Resp 21 Wt 82.4 kg (181 lb 9.6 oz) SpO2 98% BMI 28.44 kg/m Social History Tobacco Use Smoking status: Never Smokeless tobacco: Never Substance Use Topics Alcohol use: No Drug use: No PAST MEDICAL HISTORY Diagnosis Date Chronic frontal sinusitis last CT 11/2012: STABLE POSTOPERATIVE CHANGES FROM PRIOR SINONASAL SURGERY. Concussion 07/2013 post-concussive symptoms; 07/2013 and 01/2014 Concussion month of may 2016 Disc degeneration 2012 bulging,cervical GERD (gastroesophageal reflux disease) Dx 2000 Liver cyst multiple hepatic cysts Lower GI hemorrhage 2009 normal colonoscopy Renal cyst Simple right renal Unspecified asthma(493.90) EIA in her 20's Unspecified epilepsy without mention of intractable epilepsy Epilepsy, last episode 20 years I have confirmed and edited as necessary, the [facility] Review of Systems Constitutional: Negative for chills, fever and malaise/fatigue. HENT: Positive for congestion and sore throat. Negative for ear pain and sinus pain. Respiratory: Positive for cough. Negative for sputum production, shortness of breath and wheezing. Cardiovascular: Negative for chest pain. Gastrointestinal: Negative for abdominal pain, diarrhea, nausea and vomiting. Musculoskeletal: Negative for myalgias. Neurological: Negative for headaches. Objective Physical Exam Vitals and nursing note reviewed. HENT: Head: Normocephalic and atraumatic. Right Ear: Tympanic membrane, ear canal and external ear normal. Left Ear: Tympanic membrane, ear canal and external ear normal. Nose: Congestion and rhinorrhea present. No mucosal edema. Right Sinus: No maxillary sinus tenderness or frontal sinus tenderness. Left Sinus: No maxillary sinus tenderness or frontal sinus tenderness. Mouth/Throat: Pharynx: Uvula midline. Posterior oropharyngeal erythema present. No oropharyngeal exudate. Cardiovascular: Rate and Rhythm: Normal rate and regular rhythm. Heart sounds: Normal heart sounds. Pulmonary: Effort: Pulmonary effort is normal. Breath sounds: Normal breath sounds. Lymphadenopathy: Head: Right side of head: No submental, submandibular or tonsillar adenopathy. Left side of head: No submental, submandibular or tonsillar adenopathy. Cervical: No cervical adenopathy. Skin: General: Skin is warm and dry. Neurological: Mental Status: She is alert. Psychiatric: Mood and Affect: Affect normal. Probable viral uri, covid, other ASSESSMENT/PLAN: 1. URI with cough and congestion - ICD9: 465.9, ICD10: J06.9 (primary diagnosis) - Discussed viral etiology and rationale for treatment. - Symptomatic treatment with prn analgesia - Supportive care with fluids and rest Home isolation Testing ordered Comfort measures discussed - see patient instructions. When to seek higher level of care Notified in 12-24 hours with results, available on [employer] - COVID WITH FLUA+B, ROUTINE 2. Moderate persistent asthma with (acute) exacerbation - ICD9: 493.92, ICD10: J45.41 Continue prednisone taper Nebulizers prn Diagnosis and treatment plan were discussed and questions were answered to the patient's satisfaction. Pt acknowledged understanding of concepts and follow up plan. Specific signs and symptoms that would indicate the need for higher level of care were discussed in detail warranting prompt ER evaluation. Beba Roper APRN.GENA documented in this encounter [facility] 10-11-2022 Instructions Maude Norris APRN.CNP - 10/11/2022 3:21 PM EST MUSCLE STRAIN: Your exam shows you have a strained muscle. This means there is a tear or pull in the muscle due to over-exertion or stretching. Most muscle pulls heal in just a few days; more severe strains may require weeks to heal. Treatment for muscle strains includes: Rest and protect the affected area until pain with motion is gone. Apply ice packs every few hours for the next 2-3 days. After two days you can use heat to relieve muscle spasm. Compression wraps help control swelling and limit movement. Medicine to reduce pain and inflammation is often useful. Avoid strenuous activities that tend to bring on muscle pain. Exercises to strengthen and stretch the injured muscle, however, can help heal the strain and prevent repeated injury. Please call the office if your strained muscle is not improving after one week of treatment, or if you have any other concerns about your injury. documented in this encounter [facility] 10-11-2022 History of Present illness Narrative This note was created using NoteWriter. Subjective Maddie Mcallister is a 52 year old female. 52 year old female with PMH asthma, hyperlipidemia and seizure disorder presents for right sided back and rib pain. Acute onset approximately 3 weeks ago Endorses that she was coughing and thought I pulled a muscle coughing States she is experiencing pain ir right back to right front. Pain has continued into her right breast Pain worse with deep inspiration, coughing and reaching Endorses that she has a history of pulling muscles with coughing, Presents today since it has been 3 weeks. Just want to make sure something isn't broken or lung cancer since it runs in my family Denies tobacco usage Denies using OTC. The history is provided by the patient. No cyber policy and strategy planner was used. Musculoskeletal Problem This is a recurrent problem. The current episode started 1 to 4 weeks ago. The problem occurs constantly. The problem has been waxing and waning. Associated symptoms include coughing. Pertinent negatives include no abdominal pain, anorexia, arthralgias, change in bowel habit, chest pain, chills, congestion, diaphoresis, fatigue, fever, headaches, joint swelling, myalgias, nausea, neck pain, numbness, rash, sore throat, swollen glands, urinary symptoms, vertigo, visual change, vomiting or weakness. Exacerbated by: certain movement, deep inspiration, and coughing. She has tried nothing for the symptoms. The treatment provided no relief. PAST MEDICAL HISTORY Diagnosis Date Chronic frontal sinusitis last CT 11/2012: STABLE POSTOPERATIVE CHANGES FROM PRIOR SINONASAL SURGERY. Concussion 07/2013 post-concussive symptoms; 07/2013 and 01/2014 Concussion month of may 2016 Disc degeneration 2011 bulging,cervical GERD (gastroesophageal reflux disease) Dx 1999 Liver cyst multiple hepatic cysts Lower GI hemorrhage 2008 normal colonoscopy Renal cyst Simple right renal Unspecified asthma(493.90) EIA in her 20's Unspecified epilepsy without mention of intractable epilepsy Epilepsy, last episode 20 years PAST SURGICAL HISTORY Procedure Laterality Date COLONOSCOPY FLX DX W/COLLJ SPEC WHEN PFRMD normal COLONOSCOPY FLX DX W/COLLJ SPEC WHEN PFRMD 07/14/2018 Colonoscopy ESOPHAGOGASTRODUODENOSCOPY TRANSORAL DIAGNOSTIC 07/14/2018 EGD PAST SURGICAL HISTORY OF 2005 Vein extraction Left Bicep PAST SURGICAL HISTORY OF 2011 Left Endoscopic Sinus Surgery SINUS SURGERY PROC UNLISTED 2001 ALLERGIES Latex, Amoxicillin, Contrast Dye, Doxycycline, Environmental Allergies [Other], Prilosec [Omeprazole], Shellfish, and Trileptal [Oxcarbazepine] MEDICATIONS TEGRETOL XR 100 mg 12 hr tablet Take 1 tablet by mouth twice daily. Take with 200 mg tablets. zonisamide (ZONEGRAN) 50 mg capsule Take 1 capsule by mouth every morning AND 2 capsules daily at bedtime. carBAMazepine XR (TEGRETOL XR) 200 mg 12 hr tablet Take 1 tablet by mouth twice daily. levalbuterol tartrate HFA 45 mcg/actuation inhaler Inhale 2 Puffs as instructed every 4 hours as needed for Wheezing/Shortness of Breath. MOMETASONE/FORMOTEROL (DULERA INHALATION) Inhale as instructed. EPINEPHrine (EPIPEN 2-DEMI) 0.3 mg/0.3 mL auto-injector Inject 0.3 mL intramuscularly as needed (for allergic reaction.Seek emergent medical care immediately after use.Disp:one 2-pack w/it trainer). fluticasone (FLONASE) 50 mcg/actuation nasal spray Use 2 Sprays in each nostril every morning. Rinse mouth after use. montelukast (SINGULAIR) 10 mg tablet take 1 tablet by mouth at bedtime Cholecalciferol, Vitamin D3, 5,000 unit cap Take 1 capsule by mouth once daily. cetirizine hcl(ZYRTEC 10 MG TAB) Take one(1) tablet daily. predniSONE (DELTASONE) 10 mg tablet Take 4 tabs daily for 3 days, then 2 tabs daily for 3 days, then 1 tab daily for 3 days with food. methocarbamol (ROBAXIN) 500 mg tablet Take 1 tablet by mouth every 6 hours as needed (Pain) for up to 3 days. FAMILY HISTORY Problem Relation Age of Onset Hypertension Mother Asthma Mother Heart Father Emphysema Father other (Lung Cancer) Father Smoker other (heart attack) Father Social History Tobacco Use Smoking status: Never Smokeless tobacco: Never Substance Use Topics Alcohol use: No Drug use: No Review of Systems Constitutional: Negative for chills, diaphoresis, fatigue and fever. HENT: Negative for congestion and sore throat. Eyes: Negative for pain, discharge, redness and itching. Respiratory: Positive for cough. Negative for apnea, choking and chest tightness. Right rib, right chest Cardiovascular: Negative for chest pain, palpitations and leg swelling. Gastrointestinal: Negative for abdominal pain, anorexia, change in bowel habit, diarrhea, nausea and vomiting. Musculoskeletal: Negative for arthralgias, joint swelling, myalgias and neck pain. Skin: Negative for color change, pallor, rash and wound. Allergic/Immunologic: Positive for environmental allergies and food allergies. Neurological: Negative for dizziness, vertigo, facial asymmetry, weakness, numbness and headaches. Hematological: Negative for adenopathy. Does not bruise/bleed easily. Psychiatric/Behavioral: Negative for agitation and behavioral problems. Objective BP 136/84 Pulse 89 Temp 37.1 C (98.7 F) (Tympanic) Resp 16 Wt 79.4 kg (175 lb) SpO2 97% BMI 27.41 kg/m Physical Exam Vitals and nursing note reviewed. Constitutional: General: She is not in acute distress. Appearance: Normal appearance. She is normal weight. She is not ill-appearing, toxic-appearing or diaphoretic. HENT: Head: Normocephalic and atraumatic. Right Ear: Ear canal and external ear normal. Left Ear: Ear canal and external ear normal. Nose: Nose normal. No congestion or rhinorrhea. Mouth/Throat: Mouth: Mucous membranes are moist. Pharynx: No oropharyngeal exudate or posterior oropharyngeal erythema. Eyes: General: Right eye: No discharge. Left eye: No discharge. Extraocular Movements: Extraocular movements intact. Conjunctiva/sclera: Conjunctivae normal. Pupils: Pupils are equal, round, and reactive to light. Cardiovascular: Rate and Rhythm: Normal rate and regular rhythm. Pulses: Normal pulses. Heart sounds: Normal heart sounds. No murmur heard. No friction rub. Pulmonary: Effort: Pulmonary effort is normal. No respiratory distress. Breath sounds: Normal breath sounds. No stridor. No wheezing, rhonchi or rales. Comments: Right side chest with reproducible pain with deep inspiration and stretching No flail chest No ecchymosis. No rash Chest: Chest wall: No tenderness. Abdominal: General: Abdomen is flat. There is no distension. Palpations: Abdomen is soft. There is no mass. Tenderness: There is no abdominal tenderness. There is no right CVA tenderness, left CVA tenderness, guarding or rebound. Hernia: No hernia is present. Musculoskeletal: General: No swelling, tenderness, deformity or signs of injury. Normal range of motion. Cervical back: Normal range of motion and neck supple. No rigidity. Right lower leg: No edema. Left lower leg: No edema. Lymphadenopathy: Cervical: No cervical adenopathy. Skin: General: Skin is warm and dry. Capillary Refill: Capillary refill takes less than 2 seconds. Coloration: Skin is not jaundiced or pale. Findings: No bruising, erythema, lesion or rash. Neurological: General: No focal deficit present. Mental Status: She is alert and oriented to person, place, and time. Cranial Nerves: No cranial nerve deficit. Sensory: No sensory deficit. Motor: No weakness. Coordination: Coordination normal. Gait: Gait normal. Psychiatric: Mood and Affect: Mood normal. Behavior: Behavior normal. Thought Content: Thought content normal. Judgment: Judgment normal. Assessment and Plan ASSESSMENT/PLAN: 1. Rib pain on right side - ICD9: 786.50, ICD10: R07.81 Atypical chest pain, symptoms are not consistent with cardiac ischemia due to pleuritic nature of pain, localization of the pain possible etiology include Costochondritis/chest wall pain, musculoskeletal, bronchitis related, Pneumonia, and Bronchitis - Treatment with Prednisone taper and muscle relaxer See orders - Chest X-ray today. My reading: normal, no signs of acute disease. Discussed my reading with patient. Radiologist report to follow. - Oxygen saturation 98% - Follow up 3 days - XR RIBS/CHEST 3V AP RIB/OBLS/CXR RIGHT-negative for acute process Maude Norris APRN.BRICK CHIMNEY SUPERVISOR documented in this encounter [facility] 10-04-2022 History of Present illness Narrative [facility] VIRTUAL VISIT This is a virtual visit using Reading Room video visit. It required patient-provider interaction for the medical decision making as documented below. CHIEF COMPLAINT: Patient presents with: Follow Up Seizures Refill Request HISTORY OF PRESENT ILLNESS: Maddie Mcallister is a 52 year old right handed female who is diagnosed with epilepsy since age 3 or 4, and presents today for follow up. They are an established patient of Dr. Eliud Durbin and was last seen on April 16, 2022. Current seizure medications: Tegretol XR 300mg BID Zonegran 50/100 Side effects: None Auras/Seizures: None. Her last aura was August 2021. Last known seizure was 1989. Other health: Maddie had right knee surgery 06/2022 for bone floaters and torn meniscus. After the surgery she was tired/fatigued for 1 month. She is doing water therapy. She sometimes has trouble sleeping due to pain/tightness still. Since surgery she started OTC medication for GERD. Over the summer she also experienced a vireous detachment, and still has some floaters. 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[employer] Driving: yes Component Latest Ref Rng & Units 04/03/2021 08/19/2021 09/25/2021 04/16/2022 Zonisamide 10.0 - 40.0 ug/mL 9.0 (L) 8.9 (L) 11.7 9.5 (L) Carbamazepine 4.0 - 12.0 ug/mL 9.4 9.2 9.7 10.1 Carbamazepine, Free 0.8 - 2.4 ug/mL 1.8 1.9 1.8 2.0 SEIZURE DESCRIPTION: Seizure type 1: aura of vertigo (room spinning, unsteadiness) Duration: uncertain, seconds to 3 minutes Seizure type 2: ?psychic aura (feeling of critical alertness) +/---> aura of vertigo Duration: up to 10 seconds CURRENT OUTPATIENT MEDICATIONS: Current Outpatient Medications Medication Sig TEGRETOL XR 100 mg 12 hr tablet Take 1 tablet by mouth twice daily. Take with 200 mg tablets. zonisamide (ZONEGRAN) 50 mg capsule Take 1 capsule by mouth every morning AND 2 capsules daily at bedtime. carBAMazepine XR (TEGRETOL XR) 200 mg 12 hr tablet Take 1 tablet by mouth twice daily. levalbuterol tartrate HFA 45 mcg/actuation inhaler Inhale 2 Puffs as instructed every 4 hours as needed for Wheezing/Shortness of Breath. MOMETASONE/FORMOTEROL (DULERA INHALATION) Inhale as instructed. EPINEPHrine (EPIPEN 2-DEMI) 0.3 mg/0.3 mL auto-injector Inject 0.3 mL intramuscularly as needed (for allergic reaction.Seek emergent medical care immediately after use.Disp:one 2-pack w/it trainer). fluticasone (FLONASE) 50 mcg/actuation nasal spray Use 2 Sprays in each nostril every morning. Rinse mouth after use. montelukast (SINGULAIR) 10 mg tablet take 1 tablet by mouth at bedtime Cholecalciferol, Vitamin D3, 5,000 unit cap Take 1 capsule by mouth once daily. cetirizine hcl(ZYRTEC 10 MG TAB) Take one(1) tablet daily. No current facility-administered medications for this visit. PAST MEDICAL HISTORY Diagnosis Date Chronic frontal sinusitis last CT 11/2012: STABLE POSTOPERATIVE CHANGES FROM PRIOR SINONASAL SURGERY. Concussion 07/2013 post-concussive symptoms; 07/2013 and 01/2014 Concussion month of may 2016 Disc degeneration 2012 bulging,cervical GERD (gastroesophageal reflux disease) Dx 2000 Liver cyst multiple hepatic cysts Lower GI hemorrhage 2008 normal colonoscopy Renal cyst Simple right renal Unspecified asthma(493.90) EIA in her 20's Unspecified epilepsy without mention of intractable epilepsy Epilepsy, last episode 20 years PAST SURGICAL HISTORY Procedure Laterality Date COLONOSCOPY FLX DX W/COLLJ SPEC WHEN PFRMD normal COLONOSCOPY FLX DX W/COLLJ SPEC WHEN PFRMD 07/14/2018 Colonoscopy ESOPHAGOGASTRODUODENOSCOPY TRANSORAL DIAGNOSTIC 07/14/2018 EGD PAST SURGICAL HISTORY OF 2005 Vein extraction Left Bicep PAST SURGICAL HISTORY OF 2011 Left Endoscopic Sinus Surgery SINUS SURGERY PROC UNLISTED 2001 FAMILY HISTORY Problem Relation Age of Onset Hypertension Mother Asthma Mother Heart Father Emphysema Father other (Lung Cancer) Father Smoker other (heart attack) Father OTHER TESTING: DXA (03/29/2021): Normal bone mineral density ASSESSMENT: Maddie Mcallister is a 52 year old female with history of a seizure disorder since childhood, 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 Most recent EEG and neuroimaging have been normal. There was an aura in April 2016 after she hit her head with a vacuum wallpaper cleaner. Since that time, her CBZ levels were found elevated, and it was decreased. She remains on combination therapy CBZ and ZNG, but had further auras in August 2021 in the setting of stress, exhaustion, and possibly moving to generic ZNS. Med adjustments have stopped auras, but with increased ZNS likely having side effects. We have since returned to her normal dosing, with resolution of side effects and no further auras. She had recent knee surgery and is still recovering. PLAN: - LABS: ZNS, CBZ free/total, CBC, CMP before next visit - Medications: Rxs escripted that were needed -Continue Tegretol XR 300mg BID (100mg brand + 200mg generic). -Continue Zonegran to 50mg in am, 100mg in pm. - Avoid sleep deprivation and stress, or any other potential triggers - Consider consult to Isatu Anne CNP in the future for ADHD/mood disorder workup if attention/focusing issues worsen - Follow up: 6 months or sooner if needed I spent a total of 25 minutes on the date of the service which included preparing to see the patient, [id number] patient care, completing clinical documentation, and ordering medications, tests, or procedures. Jackson Lomeli PA-C October 04, 2022 documented in this encounter [facility] 06-27-2022 Miscellaneous Notes The following approved medication requests have been transmitted electronically. Signed Prescriptions Disp Refills carBAMazepine XR (TEGRETOL XR) 200 mg 12 hr tablet 180 tablet 3 Sig: Take 1 tablet by mouth twice daily. FARHEEN: No Authorizing Provider: DONA AGUILA APRN.CNP documented in this encounter [facility] 04-20-2022 Miscellaneous Notes Spoke with the patient and [place] she did not have her schedule with her at the time of call and will call back to schedule with PCP. 1st attempt. Message left for patient to contact office to reschedule 04/[address] Bates. Can use same day/hospital follow up spot with Dr. Bates as stated below. Please contact patient for scheduling, needs to r/s 04/21 appointment, offer appointment with Roz Harris, if doesn't work can use same day/hospital follow-up spot with Jana documented in this encounter [facility] 03-29-2022 Miscellaneous Notes The following approved medication requests have been transmitted electronically. Signed Prescriptions Disp Refills TEGRETOL XR 200 mg 12 hr tablet 180 tablet 3 Sig: Take 1 tablet by mouth twice daily. FARHEEN: Yes Authorizing Provider: DAKOTAH JEFFERSON PA-C Prescription Refill: Requested by: pharmacy Please E-Scribe Caller Contact Number: [phone] (home) Pharmacy Name: [facility] Number: [id number] Generic/ brand: BRAND 30 or 90 day supply requested: 90 Last appointment: 12/25/21 Next Appointment: needs to schedule appt 3 months from last check up Patient of Dr. Durbin documented in this encounter [facility] Work Phone: [phone]) 768-881301-25-2022 History of Past illness Narrative* Problem Noted Date Resolved Date Cervical spondylosis 12/26/2021 01/23/2022 Lumbar spondylosis 12/26/2021 01/23/2022 Other acne 05/11/2009 01/06/2016 Contact dermatitis and other eczema, due to unspecified cause 05/11/2009 01/06/2016 Other chronic dermatitis due to solar radiation 05/11/2009 01/06/2016 SOLAR LENTIGENES/EPHELIDES///DYSCHROMIA OTHER 01/06/2016 KERATOSIS PILARIS///SKIN ANOMALY NEC 05/11/2009 01/06/2016 SKIN TAG PAPILLOMA///SKIN HYPERTRO/ATROPH NOS 01/06/2016 Other seborrheic keratosis 05/11/200901/06 Unspecified asthma(493.90) 01/18/200904/14 documented as of this encounter (statuses as of 03/29/2022) [facility] History of Past illness Narrative* Problem Noted Date Resolved Date Cervical spondylosis 12/26/2021 01/23/2022 Lumbar spondylosis 12/26/2021 01/23/2022 Other acne 05/11/2009 01/06/2016 Contact dermatitis and other eczema, due to unspecified cause 05/11/2009 01/06/2016 Other chronic dermatitis due to solar radiation 05/11/2009 01/06/2016 SOLAR LENTIGENES/EPHELIDES///DYSCHROMIA OTHER 01/06/2016 KERATOSIS PILARIS///SKIN ANOMALY NEC 05/11/2009 01/06/2016 SKIN TAG PAPILLOMA///SKIN HYPERTRO/ATROPH NOS 01/06/2016 Other seborrheic keratosis 05/11/200901/06 Unspecified asthma(493.90) 01/18/200904/14 documented as of this encounter (statuses as of 04/03/2022) [facility] History of Past illness Narrative* Problem Noted Date Resolved Date Cervical spondylosis 12/26/2021 01/23/2022 Lumbar spondylosis 12/26/2021 01/23/2022 Other acne 05/11/2009 01/06/2016 Contact dermatitis and other eczema, due to unspecified cause 05/11/2009 01/06/2016 Other chronic dermatitis due to solar radiation 05/11/2009 01/06/2016 SOLAR LENTIGENES/EPHELIDES///DYSCHROMIA OTHER 01/06/2016 KERATOSIS PILARIS///SKIN ANOMALY NEC 05/11/2009 01/06/2016 SKIN TAG PAPILLOMA///SKIN HYPERTRO/ATROPH NOS 01/06/2016 Other seborrheic keratosis 05/11/200901/06 Unspecified asthma(493.90) 01/18/200904/14 documented as of this encounter (statuses as of 04/09/2022) [facility] History of Past illness Narrative* Problem Noted Date Resolved Date Cervical spondylosis 12/26/2021 01/23/2022 Lumbar spondylosis 12/26/2021 01/23/2022 Other acne 05/11/2009 01/06/2016 Contact dermatitis and other eczema, due to unspecified cause 05/11/2009 01/06/2016 Other chronic dermatitis due to solar radiation 05/11/2009 01/06/2016 SOLAR LENTIGENES/EPHELIDES///DYSCHROMIA OTHER 01/06/2016 KERATOSIS PILARIS///SKIN ANOMALY NEC 05/11/2009 01/06/2016 SKIN TAG PAPILLOMA///SKIN HYPERTRO/ATROPH NOS 01/06/2016 Other seborrheic keratosis 05/11/200901/06 Unspecified asthma(493.90) 01/18/200904/14 documented as of this encounter (statuses as of 04/20/2022) [facility] History of Past illness Narrative* Problem Noted Date Resolved Date Cervical spondylosis 12/26/2021 01/23/2022 Lumbar spondylosis 12/26/2021 01/23/2022 Other acne 05/11/2009 01/06/2016 Contact dermatitis and other eczema, due to unspecified cause 05/11/2009 01/06/2016 Other chronic dermatitis due to solar radiation 05/11/2009 01/06/2016 SOLAR LENTIGENES/EPHELIDES///DYSCHROMIA OTHER 01/06/2016 KERATOSIS PILARIS///SKIN ANOMALY NEC 05/11/2009 01/06/2016 SKIN TAG PAPILLOMA///SKIN HYPERTRO/ATROPH NOS 01/06/2016 Other seborrheic keratosis 05/11/200901/06 Unspecified asthma(493.90) 01/18/200904/14 documented as of this encounter (statuses as of 04/25/2022) [facility] History of Past illness Narrative* Problem Noted Date Resolved Date Cervical spondylosis 12/26/2021 01/23/2022 Lumbar spondylosis 12/26/2021 01/23/2022 Other acne 05/11/2009 01/06/2016 Contact dermatitis and other eczema, due to unspecified cause 05/11/2009 01/06/2016 Other chronic dermatitis due to solar radiation 05/11/2009 01/06/2016 SOLAR LENTIGENES/EPHELIDES///DYSCHROMIA OTHER 01/06/2016 KERATOSIS PILARIS///SKIN ANOMALY NEC 05/11/2009 01/06/2016 SKIN TAG PAPILLOMA///SKIN HYPERTRO/ATROPH NOS 01/06/2016 Other seborrheic keratosis 05/11/200901/06 Unspecified asthma(493.90) 01/18/200904/14 documented as of this encounter (statuses as of 06/27/2022) [facility] History of Past illness Narrative* Problem Noted Date Resolved Date Cervical spondylosis 12/26/2021 01/23/2022 Lumbar spondylosis 12/26/2021 01/23/2022 Other acne 05/11/2009 01/06/2016 Contact dermatitis and other eczema, due to unspecified cause 05/11/2009 01/06/2016 Other chronic dermatitis due to solar radiation 05/11/2009 01/06/2016 SOLAR LENTIGENES/EPHELIDES///DYSCHROMIA OTHER 01/06/2016 KERATOSIS PILARIS///SKIN ANOMALY NEC 05/11/2009 01/06/2016 SKIN TAG PAPILLOMA///SKIN HYPERTRO/ATROPH NOS 01/06/2016 Other seborrheic keratosis 05/11/200901/06 Unspecified asthma(493.90) 01/18/200904/14 documented as of this encounter (statuses as of 07/03/2022) [facility] History of Past illness Narrative* Problem Noted Date Resolved Date Cervical spondylosis 12/26/2021 01/23/2022 Lumbar spondylosis 12/26/2021 01/23/2022 Other acne 05/11/2009 01/06/2016 Contact dermatitis and other eczema, due to unspecified cause 05/11/2009 01/06/2016 Other chronic dermatitis due to solar radiation 05/11/2009 01/06/2016 SOLAR LENTIGENES/EPHELIDES///DYSCHROMIA OTHER 01/06/2016 KERATOSIS PILARIS///SKIN ANOMALY NEC 05/11/2009 01/06/2016 SKIN TAG PAPILLOMA///SKIN HYPERTRO/ATROPH NOS 01/06/2016 Other seborrheic keratosis 05/11/200901/06 Unspecified asthma(493.90) 01/18/200904/14 documented as of this encounter (statuses as of 10/04/2022) [facility] History of Past illness Narrative* Problem Noted Date Resolved Date Cervical spondylosis 12/26/2021 01/23/2022 Lumbar spondylosis 12/26/2021 01/23/2022 Other acne 05/11/2009 01/06/2016 Contact dermatitis and other eczema, due to unspecified cause 05/11/2009 01/06/2016 Other chronic dermatitis due to solar radiation 05/11/2009 01/06/2016 SOLAR LENTIGENES/EPHELIDES///DYSCHROMIA OTHER 01/06/2016 KERATOSIS PILARIS///SKIN ANOMALY NEC 05/11/2009 01/06/2016 SKIN TAG PAPILLOMA///SKIN HYPERTRO/ATROPH NOS 01/06/2016 Other seborrheic keratosis 05/11/200901/06 Unspecified asthma(493.90) 01/18/200904/14 documented as of this encounter (statuses as of 10/11/2022) [facility] History of Past illness Narrative* Problem Noted Date Resolved Date Cervical spondylosis 12/26/2021 01/23/2022 Lumbar spondylosis 12/26/2021 01/23/2022 Other acne 05/11/2009 01/06/2016 Contact dermatitis and other eczema, due to unspecified cause 05/11/2009 01/06/2016 Other chronic dermatitis due to solar radiation 05/11/2009 01/06/2016 SOLAR LENTIGENES/EPHELIDES///DYSCHROMIA OTHER 01/06/2016 KERATOSIS PILARIS///SKIN ANOMALY NEC 05/11/2009 01/06/2016 SKIN TAG PAPILLOMA///SKIN HYPERTRO/ATROPH NOS 01/06/2016 Other seborrheic keratosis 05/11/200901/06 Unspecified asthma(493.90) 01/18/200904/14 documented as of this encounter (statuses as of 10/18/2022) [facility] History of Past illness Narrative* Problem Noted Date Resolved Date Cervical spondylosis 12/26/2021 01/23/2022 Lumbar spondylosis 12/26/2021 01/23/2022 Other acne 05/11/2009 01/06/2016 Contact dermatitis and other eczema, due to unspecified cause 05/11/2009 01/06/2016 Other chronic dermatitis due to solar radiation 05/11/2009 01/06/2016 SOLAR LENTIGENES/EPHELIDES///DYSCHROMIA OTHER 01/06/2016 KERATOSIS PILARIS///SKIN ANOMALY NEC 05/11/2009 01/06/2016 SKIN TAG PAPILLOMA///SKIN HYPERTRO/ATROPH NOS 01/06/2016 Other seborrheic keratosis 05/11/200901/06 Unspecified asthma(493.90) 01/18/200904/14 documented as of this encounter (statuses as of 10/20/2022) [facility] History of Past illness Narrative* Problem Noted Date Resolved Date Cervical spondylosis 12/26/2021 01/23/2022 Lumbar spondylosis 12/26/2021 01/23/2022 Other acne 05/11/2009 01/06/2016 Contact dermatitis and other eczema, due to unspecified cause 05/11/2009 01/06/2016 Other chronic dermatitis due to solar radiation 05/11/2009 01/06/2016 SOLAR LENTIGENES/EPHELIDES///DYSCHROMIA OTHER 01/06/2016 KERATOSIS PILARIS///SKIN ANOMALY NEC 05/11/2009 01/06/2016 SKIN TAG PAPILLOMA///SKIN HYPERTRO/ATROPH NOS 01/06/2016 Other seborrheic keratosis 05/11/200901/06 Unspecified asthma(493.90) 01/18/200904/14 documented as of this encounter (statuses as of 12/02/2022) [facility] History of Past illness Narrative* Problem Noted Date Resolved Date Cervical spondylosis 12/26/2021 01/23/2022 Lumbar spondylosis 12/26/2021 01/23/2022 Other acne 05/11/2009 01/06/2016 Contact dermatitis and other eczema, due to unspecified cause 05/11/2009 01/06/2016 Other chronic dermatitis due to solar radiation 05/11/2009 01/06/2016 SOLAR LENTIGENES/EPHELIDES///DYSCHROMIA OTHER 01/06/2016 KERATOSIS PILARIS///SKIN ANOMALY NEC 05/11/2009 01/06/2016 SKIN TAG PAPILLOMA///SKIN HYPERTRO/ATROPH NOS 01/06/2016 Other seborrheic keratosis 05/11/200901/06 Unspecified asthma(493.90) 01/18/200904/14 documented as of this encounter (statuses as of 12/02/2022) [facility] History of Past illness Narrative* Problem Noted Date Resolved Date Cervical spondylosis 12/26/2021 01/23/2022 Lumbar spondylosis 12/26/2021 01/23/2022 Other acne 05/11/2009 01/06/2016 Contact dermatitis and other eczema, due to unspecified cause 05/11/2009 01/06/2016 Other chronic dermatitis due to solar radiation 05/11/2009 01/06/2016 SOLAR LENTIGENES/EPHELIDES///DYSCHROMIA OTHER 01/06/2016 KERATOSIS PILARIS///SKIN ANOMALY NEC 05/11/2009 01/06/2016 SKIN TAG PAPILLOMA///SKIN HYPERTRO/ATROPH NOS 01/06/2016 Other seborrheic keratosis 05/11/200901/06 Unspecified asthma(493.90) 01/18/200904/14 documented as of this encounter (statuses as of 12/05/2022) [facility] History of Past illness Narrative* Problem Noted Date Resolved Date Cervical spondylosis 12/26/2021 01/23/2022 Lumbar spondylosis 12/26/2021 01/23/2022 Other acne 05/11/2009 01/06/2016 Contact dermatitis and other eczema, due to unspecified cause 05/11/2009 01/06/2016 Other chronic dermatitis due to solar radiation 05/11/2009 01/06/2016 SOLAR LENTIGENES/EPHELIDES///DYSCHROMIA OTHER 01/06/2016 KERATOSIS PILARIS///SKIN ANOMALY NEC 05/11/2009 01/06/2016 SKIN TAG PAPILLOMA///SKIN HYPERTRO/ATROPH NOS 01/06/2016 Other seborrheic keratosis 05/11/200901/06 Unspecified asthma(493.90) 01/18/200904/14 documented as of this encounter (statuses as of 12/06/2022) [facility] History of Past illness Narrative* Problem Noted Date Resolved Date Cervical spondylosis 12/26/2021 01/23/2022 Lumbar spondylosis 12/26/2021 01/23/2022 Other acne 05/11/2009 01/06/2016 Contact dermatitis and other eczema, due to unspecified cause 05/11/2009 01/06/2016 Other chronic dermatitis due to solar radiation 05/11/2009 01/06/2016 SOLAR LENTIGENES/EPHELIDES///DYSCHROMIA OTHER 01/06/2016 KERATOSIS PILARIS///SKIN ANOMALY NEC 05/11/2009 01/06/2016 SKIN TAG PAPILLOMA///SKIN HYPERTRO/ATROPH NOS 01/06/2016 Other seborrheic keratosis 05/11/200901/06 Unspecified asthma(493.90) 01/18/200904/14 documented as of this encounter (statuses as of 12/10/2022) [facility] History of Past illness Narrative* Problem Noted Date Resolved Date Cervical spondylosis 12/26/2021 01/23/2022 Lumbar spondylosis 12/26/2021 01/23/2022 Other acne 05/11/2009 01/06/2016 Contact dermatitis and other eczema, due to unspecified cause 05/11/2009 01/06/2016 Other chronic dermatitis due to solar radiation 05/11/2009 01/06/2016 SOLAR LENTIGENES/EPHELIDES///DYSCHROMIA OTHER 01/06/2016 KERATOSIS PILARIS///SKIN ANOMALY NEC 05/11/2009 01/06/2016 SKIN TAG PAPILLOMA///SKIN HYPERTRO/ATROPH NOS 01/06/2016 Other seborrheic keratosis 05/11/200901/06 Unspecified asthma(493.90) 01/18/200904/14 documented as of this encounter (statuses as of 01/11/2023) [facility] History of Past illness Narrative* Problem Noted Date Resolved Date Cervical spondylosis 12/26/2021 01/23/2022 Lumbar spondylosis 12/26/2021 01/23/2022 Other acne 05/11/2009 01/06/2016 Contact dermatitis and other eczema, due to unspecified cause 05/11/2009 01/06/2016 Other chronic dermatitis due to solar radiation 05/11/2009 01/06/2016 SOLAR LENTIGENES/EPHELIDES///DYSCHROMIA OTHER 01/06/2016 KERATOSIS PILARIS///SKIN ANOMALY NEC 05/11/2009 01/06/2016 SKIN TAG PAPILLOMA///SKIN HYPERTRO/ATROPH NOS 01/06/2016 Other seborrheic keratosis 05/11/200901/06 Unspecified asthma(493.90) 01/18/200904/14 documented as of this encounter (statuses as of 01/15/2023) [facility] History of Past illness Narrative* Problem Noted Date Resolved Date Cervical spondylosis 12/26/2021 01/23/2022 Lumbar spondylosis 12/26/2021 01/23/2022 Other acne 05/11/2009 01/06/2016 Contact dermatitis and other eczema, due to unspecified cause 05/11/2009 01/06/2016 Other chronic dermatitis due to solar radiation 05/11/2009 01/06/2016 SOLAR LENTIGENES/EPHELIDES///DYSCHROMIA OTHER 01/06/2016 KERATOSIS PILARIS///SKIN ANOMALY NEC 05/11/2009 01/06/2016 SKIN TAG PAPILLOMA///SKIN HYPERTRO/ATROPH NOS 01/06/2016 Other seborrheic keratosis 05/11/200901/06 Unspecified asthma(493.90) 01/18/200904/14 documented as of this encounter (statuses as of 02/04/2023) [facility] History of Past illness Narrative* Problem Noted Date Resolved Date Cervical spondylosis 12/26/2021 01/23/2022 Lumbar spondylosis 12/26/2021 01/23/2022 Other acne 05/11/2009 01/06/2016 Contact dermatitis and other eczema, due to unspecified cause 05/11/2009 01/06/2016 Other chronic dermatitis due to solar radiation 05/11/2009 01/06/2016 SOLAR LENTIGENES/EPHELIDES///DYSCHROMIA OTHER 01/06/2016 KERATOSIS PILARIS///SKIN ANOMALY NEC 05/11/2009 01/06/2016 SKIN TAG PAPILLOMA///SKIN HYPERTRO/ATROPH NOS 01/06/2016 Other seborrheic keratosis 05/11/200901/06 Unspecified asthma(493.90) 01/18/200904/14 documented as of this encounter (statuses as of 03/25/2023) [facility] History of Past illness Narrative* Problem Noted Date Resolved Date Cervical spondylosis 12/26/2021 01/23/2022 Lumbar spondylosis 12/26/2021 01/23/2022 Other acne 05/11/2009 01/06/2016 Contact dermatitis and other eczema, due to unspecified cause 05/11/2009 01/06/2016 Other chronic dermatitis due to solar radiation 05/11/2009 01/06/2016 SOLAR LENTIGENES/EPHELIDES///DYSCHROMIA OTHER 01/06/2016 KERATOSIS PILARIS///SKIN ANOMALY NEC 05/11/2009 01/06/2016 SKIN TAG PAPILLOMA///SKIN HYPERTRO/ATROPH NOS 01/06/2016 Other seborrheic keratosis 05/11/200901/06 Unspecified asthma(493.90) 01/18/200904/14 documented as of this encounter (statuses as of 03/28/2023) [facility] History of Past illness Narrative* Problem Noted Date Resolved Date Cervical spondylosis 12/26/2021 01/23/2022 Lumbar spondylosis 12/26/2021 01/23/2022 Other acne 05/11/2009 01/06/2016 Contact dermatitis and other eczema, due to unspecified cause 05/11/2009 01/06/2016 Other chronic dermatitis due to solar radiation 05/11/2009 01/06/2016 SOLAR LENTIGENES/EPHELIDES///DYSCHROMIA OTHER 01/06/2016 KERATOSIS PILARIS///SKIN ANOMALY NEC 05/11/2009 01/06/2016 SKIN TAG PAPILLOMA///SKIN HYPERTRO/ATROPH NOS 01/06/2016 Other seborrheic keratosis 05/11/200901/06 Unspecified asthma(493.90) 01/18/200904/14 documented as of this encounter (statuses as of 04/10/2023) [place] [address]-25-2022 History of Past illness Narrative* Problem Noted Date Resolved Date Cervical spondylosis 12/26/2021 01/23/2022 Lumbar spondylosis 12/26/2021 01/23/2022 Other acne 05/11/2009 01/06/2016 Contact dermatitis and other eczema, due to unspecified cause 05/11/2009 01/06/2016 Other chronic dermatitis due to solar radiation 05/11/2009 01/06/2016 SOLAR LENTIGENES/EPHELIDES///DYSCHROMIA OTHER 01/06/2016 KERATOSIS PILARIS///SKIN ANOMALY NEC 05/11/2009 01/06/2016 SKIN TAG PAPILLOMA///SKIN HYPERTRO/ATROPH NOS 01/06/2016 Other seborrheic keratosis 05/11/200901/06 Unspecified asthma(493.90) 01/18/200904/14 documented as of this encounter (statuses as of 04/29/2023) [facility] History of Past illness Narrative* Problem Noted Date Resolved Date Cervical spondylosis 12/26/2021 01/23/2022 Lumbar spondylosis 12/26/2021 01/23/2022 Other acne 05/11/2009 01/06/2016 Contact dermatitis and other eczema, due to unspecified cause 05/11/2009 01/06/2016 Other chronic dermatitis due to solar radiation 05/11/2009 01/06/2016 SOLAR LENTIGENES/EPHELIDES///DYSCHROMIA OTHER 01/06/2016 KERATOSIS PILARIS///SKIN ANOMALY NEC 05/11/2009 01/06/2016 SKIN TAG PAPILLOMA///SKIN HYPERTRO/ATROPH NOS 01/06/2016 Other seborrheic keratosis 05/11/200901/06 Unspecified asthma(493.90) 01/18/200904/14 documented as of this encounter (statuses as of 04/30/2023) [facility] History of Past illness Narrative* Problem Noted Date Resolved Date Cervical spondylosis 12/26/2021 01/23/2022 Lumbar spondylosis 12/26/2021 01/23/2022 Other acne 05/11/2009 01/06/2016 Contact dermatitis and other eczema, due to unspecified cause 05/11/2009 01/06/2016 Other chronic dermatitis due to solar radiation 05/11/2009 01/06/2016 SOLAR LENTIGENES/EPHELIDES///DYSCHROMIA OTHER 01/06/2016 KERATOSIS PILARIS///SKIN ANOMALY NEC 05/11/2009 01/06/2016 SKIN TAG PAPILLOMA///SKIN HYPERTRO/ATROPH NOS 01/06/2016 Other seborrheic keratosis 05/11/200901/06 Unspecified asthma(493.90) 01/18/200904/14 documented as of this encounter (statuses as of 05/02/2023) [facility] History of Past illness Narrative* Problem Noted Date Resolved Date Cervical spondylosis 12/26/2021 01/23/2022 Lumbar spondylosis 12/26/2021 01/23/2022 Other acne 05/11/2009 01/06/2016 Contact dermatitis and other eczema, due to unspecified cause 05/11/2009 01/06/2016 Other chronic dermatitis due to solar radiation 05/11/2009 01/06/2016 SOLAR LENTIGENES/EPHELIDES///DYSCHROMIA OTHER 01/06/2016 KERATOSIS PILARIS///SKIN ANOMALY NEC 05/11/2009 01/06/2016 SKIN TAG PAPILLOMA///SKIN HYPERTRO/ATROPH NOS 01/06/2016 Other seborrheic keratosis 05/11/200901/06 Unspecified asthma(493.90) 01/18/200904/14 documented as of this encounter (statuses as of 05/20/2023) [facility] History of Past illness Narrative* Problem Noted Date Diagnosed Date Resolved Date Cervical spondylosis 12/26/2021 022 Lumbar spondylosis 12/26/2021 2 Other acne 05/11/2009 01/06/2016 Contact dermatitis and other eczema, due to unspecified cause 05/11/2009 01/06/2016 Other chronic dermatitis due to solar radiation 05/11/2009 01/06/2016 SOLAR LENTIGENES/EPHELIDES///DYSCHROMIA OTHER 05/11/20 09 01/06/2016 KERATOSIS PILARIS///SKIN ANOMALY NEC 05/11/2009 01/06/2016 SKIN TAG PAPILLOMA///SKIN HYPERTRO/ATROPH NOS 05/11/20 09 01/06/2016 Other seborrheic keratosis 05/11/2009 0 01/06/2016 Unspecified asthma(493.90) 01/18/2009 0 04/14/2009 documented as of this encounter (statuses as of 07/03/2023) [facility] History of Past illness Narrative* Problem Noted Date Diagnosed Date Resolved Date Cervical spondylosis 12/26/2021 022 Lumbar spondylosis 12/26/2021 2 Other acne 05/11/2009 01/06/2016 Contact dermatitis and other eczema, due to unspecified cause 05/11/2009 01/06/2016 Other chronic dermatitis due to solar radiation 05/11/2009 01/06/2016 SOLAR LENTIGENES/EPHELIDES///DYSCHROMIA OTHER 05/11/20 09 01/06/2016 KERATOSIS PILARIS///SKIN ANOMALY NEC 05/11/2009 01/06/2016 SKIN TAG PAPILLOMA///SKIN HYPERTRO/ATROPH NOS 05/11/20 09 01/06/2016 Other seborrheic keratosis 05/11/2009 0 01/06/2016 Unspecified asthma(493.90) 01/18/2009 0 04/14/2009 documented as of this encounter (statuses as of 07/22/2023) [facility] History of Past illness Narrative* Problem Noted Date Diagnosed Date Resolved Date Cervical spondylosis 12/26/2021 022 Lumbar spondylosis 12/26/2021 2 Other acne 05/11/2009 01/06/2016 Contact dermatitis and other eczema, due to unspecified cause 05/11/2009 01/06/2016 Other chronic dermatitis due to solar radiation 05/11/2009 01/06/2016 SOLAR LENTIGENES/EPHELIDES///DYSCHROMIA OTHER 05/11/20 09 01/06/2016 KERATOSIS PILARIS///SKIN ANOMALY NEC 05/11/2009 01/06/2016 SKIN TAG PAPILLOMA///SKIN HYPERTRO/ATROPH NOS 05/11/20 09 01/06/2016 Other seborrheic keratosis 05/11/2009 0 01/06/2016 Unspecified asthma(493.90) 01/18/2009 0 04/14/2009 documented as of this encounter (statuses as of 07/23/2023) [facility] History of Past illness Narrative* Problem Noted Date Diagnosed Date Resolved Date Cervical spondylosis 12/26/2021 022 Lumbar spondylosis 12/26/2021 2 Other acne 05/11/2009 01/06/2016 Contact dermatitis and other eczema, due to unspecified cause 05/11/2009 01/06/2016 Other chronic dermatitis due to solar radiation 05/11/2009 01/06/2016 SOLAR LENTIGENES/EPHELIDES///DYSCHROMIA OTHER 05/11/20 09 01/06/2016 KERATOSIS PILARIS///SKIN ANOMALY NEC 05/11/2009 01/06/2016 SKIN TAG PAPILLOMA///SKIN HYPERTRO/ATROPH NOS 05/11/20 09 01/06/2016 Other seborrheic keratosis 05/11/2009 0 01/06/2016 Unspecified asthma(493.90) 01/18/2009 0 04/14/2009 documented as of this encounter (statuses as of 07/31/2023) [facility]25[facility]2022 History of Past illness Narrative* Problem Noted Date Diagnosed Date Resolved Date Cervical spondylosis 12/26/2021 022 Lumbar spondylosis 12/26/2021 2 Other acne 05/11/2009 01/06/2016 Contact dermatitis and other eczema, due to unspecified cause 05/11/2009 01/06/2016 Other chronic dermatitis due to solar radiation 05/11/2009 01/06/2016 SOLAR LENTIGENES/EPHELIDES///DYSCHROMIA OTHER 05/11/20 09 01/06/2016 KERATOSIS PILARIS///SKIN ANOMALY NEC 05/11/2009 01/06/2016 SKIN TAG PAPILLOMA///SKIN HYPERTRO/ATROPH NOS 05/11/20 09 01/06/2016 Other seborrheic keratosis 05/11/2009 0 01/06/2016 Unspecified asthma(493.90) 01/18/2009 0 04/14/2009 documented as of this encounter (statuses as of 08/08/2023) [facility]22 History of Past illness Narrative* Problem Noted Date Diagnosed Date Resolved Date Cervical spondylosis 12/26/2021 022 Lumbar spondylosis 12/26/2021 2 Other acne 05/11/2009 01/06/2016 Contact dermatitis and other eczema, due to unspecified cause 05/11/2009 01/06/2016 Other chronic dermatitis due to solar radiation 05/11/2009 01/06/2016 SOLAR LENTIGENES/EPHELIDES///DYSCHROMIA OTHER 05/11/20 09 01/06/2016 KERATOSIS PILARIS///SKIN ANOMALY NEC 05/11/2009 01/06/2016 SKIN TAG PAPILLOMA///SKIN HYPERTRO/ATROPH NOS 05/11/20 09 01/06/2016 Other seborrheic keratosis 05/11/2009 0 01/06/2016 Unspecified asthma(493.90) 01/18/2009 0 04/14/2009 documented as of this encounter (statuses as of 08/08/2023) [facility]2022 History of Past illness Narrative* Problem Noted Date Diagnosed Date Resolved Date Cervical spondylosis 12/26/2021 022 Lumbar spondylosis 12/26/2021 2 Other acne 05/11/2009 01/06/2016 Contact dermatitis and other eczema, due to unspecified cause 05/11/2009 01/06/2016 Other chronic dermatitis due to solar radiation 05/11/2009 01/06/2016 SOLAR LENTIGENES/EPHELIDES///DYSCHROMIA OTHER 05/11/20 09 01/06/2016 KERATOSIS PILARIS///SKIN ANOMALY NEC 05/11/2009 01/06/2016 SKIN TAG PAPILLOMA///SKIN HYPERTRO/ATROPH NOS 05/11/20 09 01/06/2016 Other seborrheic keratosis 05/11/2009 0 01/06/2016 Unspecified asthma(493.90) 01/18/2009 0 04/14/2009 documented as of this encounter (statuses as of 09/17/2023) [facility]2022 History of Past illness Narrative* Problem Noted Date Diagnosed Date Resolved Date Cervical spondylosis 12/26/2021 022 Lumbar spondylosis 12/26/2021 2 Other acne 05/11/2009 01/06/2016 Contact dermatitis and other eczema, due to unspecified cause 05/11/2009 01/06/2016 Other chronic dermatitis due to solar radiation 05/11/2009 01/06/2016 SOLAR LENTIGENES/EPHELIDES///DYSCHROMIA OTHER 05/11/20 09 01/06/2016 KERATOSIS PILARIS///SKIN ANOMALY NEC 05/11/2009 01/06/2016 SKIN TAG PAPILLOMA///SKIN HYPERTRO/ATROPH NOS 05/11/20 09 01/06/2016 Other seborrheic keratosis 05/11/2009 0 01/06/2016 Unspecified asthma(493.90) 01/18/2009 0 04/14/2009 documented as of this encounter (statuses as of 09/27/2023) [facility]20[facility] History of Past illness Narrative* Problem Noted Date Diagnosed Date Resolved Date Cervical spondylosis 12/26/2021 022 Lumbar spondylosis 12/26/2021 2 Other acne 05/11/2009 01/06/2016 Contact dermatitis and other eczema, due to unspecified cause 05/11/2009 01/06/2016 Other chronic dermatitis due to solar radiation 05/11/2009 01/06/2016 SOLAR LENTIGENES/EPHELIDES///DYSCHROMIA OTHER 05/11/20 09 01/06/2016 KERATOSIS PILARIS///SKIN ANOMALY NEC 05/11/2009 01/06/2016 SKIN TAG PAPILLOMA///SKIN HYPERTRO/ATROPH NOS 05/11/20 09 01/06/2016 Other seborrheic keratosis 05/11/2009 0 01/06/2016 Unspecified asthma(493.90) 01/18/2009 0 04/14/2009 documented as of this encounter (statuses as of 09/27/2023) [facility] History of Past illness Narrative* Problem Noted Date Diagnosed Date Resolved Date Cervical spondylosis 12/26/2021 022 Lumbar spondylosis 12/26/2021 2 Other acne 05/11/2009 01/06/2016 Contact dermatitis and other eczema, due to unspecified cause 05/11/2009 01/06/2016 Other chronic dermatitis due to solar radiation 05/11/2009 01/06/2016 SOLAR LENTIGENES/EPHELIDES///DYSCHROMIA OTHER 05/11/20 09 01/06/2016 KERATOSIS PILARIS///SKIN ANOMALY NEC 05/11/2009 01/06/2016 SKIN TAG PAPILLOMA///SKIN HYPERTRO/ATROPH NOS 05/11/20 09 01/06/2016 Other seborrheic keratosis 05/11/2009 0 01/06/2016 Unspecified asthma(493.90) 01/18/2009 0 04/14/2009 documented as of this encounter (statuses as of 11/01/2023) [facility] History of Past illness Narrative* Problem Noted Date Diagnosed Date Resolved Date Cervical spondylosis 12/26/2021 022 Lumbar spondylosis 12/26/2021 2 Other acne 05/11/2009 01/06/2016 Contact dermatitis and other eczema, due to unspecified cause 05/11/2009 01/06/2016 Other chronic dermatitis due to solar radiation 05/11/2009 01/06/2016 SOLAR LENTIGENES/EPHELIDES///DYSCHROMIA OTHER 05/11/20 09 01/06/2016 KERATOSIS PILARIS///SKIN ANOMALY NEC 05/11/2009 01/06/2016 SKIN TAG PAPILLOMA///SKIN HYPERTRO/ATROPH NOS 05/11/20 09 01/06/2016 Other seborrheic keratosis 05/11/2009 0 01/06/2016 Unspecified asthma(493.90) 01/18/2009 0 04/14/2009 documented as of this encounter (statuses as of 11/01/2023) [facility]08-10-2021 NoteHNO ID: [id number] Author: GALLO Erickson Service: Radiology Author Type: Clinical Balance Wheel Screw Hole Tapper Type: Progress Notes Filed: 07/11/2021 9:08 AM Note Text: Radiology Service Progress Note PATIENT NAME: Maddie Mcallister DATE OF SERVICE: July 11, 2021 TIME: 9:08 AM PATIENT IDENTITY VERIFICATION COMPLETED USING TWO (2) IDENTIFIERS: Name and Date of confirmed by patient verbally. FALL SCREENING: Has the patient had 2 falls in the last year or 1 fall with injury or currently using an Ambulatory Assistive Device (Walker, Cane, Wheelchair, Crutches, etc.)? No PATIENT GENDER DATA: Female. status: : No status: NO. PATIENT RELEVANT IMPLANT DATA REVIEWED: Not Applicable RADIOLOGY DEPARTMENT: Mammography PERIPHERAL IV DATA: Not applicable SIGNED BY: GALLO Palm July 11, 2021 9:08 [facility] noteThere may be information available, but it has not been provided by the sender.[facility] Work Phone: Evaluation note* Diagnosis Nonintractable epilepsy without status epilepticus, unspecified epilepsy type (HCC) [facility] Diagnosis Nonintractable epilepsy without status epilepticus, unspecified epilepsy type (HCC) documented in this encounter [facility] note* Diagnosis Nonintractable epilepsy without status epilepticus, unspecified epilepsy type (HCC) documented in this encounter [facility] note* Diagnosis Rib pain on right side- Primary Chest pain, unspecified [facility]* Diagnosis URI with cough and congestion- Primary Moderate persistent asthma with (acute) exacerbation documented in this encounter [facility] note* Diagnosis URI with cough and congestion- Primary [facility]* Diagnosis COVID-19- Primary documented in this encounter [facility] note* Diagnosis Sinobronchitis- Primary Unspecified sinusitis (chronic) Moderate persistent extrinsic asthma with acute exacerbation Otalgia of both ears Otalgia, unspecified Benign paroxysmal positional vertigo, unspecified laterality documented in this encounter [facility] note* Diagnosis Nonintractable epilepsy without status epilepticus, unspecified epilepsy type (HCC)- Primary Low vitamin D level [facility]* Diagnosis Nonintractable epilepsy without status epilepticus, unspecified epilepsy type (HCC)- Primary Elevated glucose level Elevated creatine kinase Other nonspecific abnormal serum enzyme levels documented in this encounter [facility] note* Diagnosis Elevated creatine kinase- Primary Other nonspecific abnormal serum enzyme levels Elevated glucose level documented in this encounter [facility] note* Diagnosis Vaginal discharge- Primary Leukorrhea, not specified as infective Acute vaginitis Vaginitis and vulvovaginitis, unspecified documented in this encounter [facility] note* Diagnosis Vaginal yeast infection- Primary Candidiasis of vulva and vagina documented [facility]* Diagnosis Encounter for screening for malignant neoplasm of colon- Primary Special screening for malignant neoplasms, colon History of colonic polyps Personal history of colonic polyps Gastroesophageal reflux disease, unspecified whether esophagitis present documented in this encounter [facility] note* Diagnosis Axillary mass, right- Primary Muscle strain Unspecified site of sprain and strain S/P arthroscopic surgery of left knee Other postprocedural status documented in this encounter [facility] note* Diagnosis Abnormal mammogram- Primary Abnormal mammogram, unspecified documented in this encounter [facility] note* Diagnosis Skin cyst- Primary Sebaceous cyst documented in this encounter [facility] note* Diagnosis History of colonic polyps- Primary Personal history of colonic polyps Gastroesophageal reflux disease with esophagitis without hemorrhage Hiatal hernia Diaphragmatic hernia without mention of obstruction or gangrene documented in this encounter [facility] note* Diagnosis Viral illness- Primary Unspecified viral infection, in conditions classified elsewhere and of unspecified site documented in this encounter [facility] note* Diagnosis Pre-operative examination for internal medicine- Primary Other specified pre-operative examination Pre-operative examination for internal medicine Other specified pre-operative examination documented in this encounter [facility] for referral (narrative)* Diagnostic Procedure Only (Urgent) - Closed Specialty Diagnoses / Procedures Referred By Neris chi Referred To Contact XR IMAGING Diagnoses Rib pain on right side Procedures XR RIBS/CHEST 3V AP RIB/OBLS/CXR RIGHT RADEX RIBS UNI W/POSTEROANT CH MINIMUM 3 VIEWS Maude Norris, CORY.BRICK CHIMNEY SUPERVISOR [address] [place] [address] Xr Imaging Referral ID Status Reason Start Date Expiration Date V isits Requested Visits Authorized [id number] Closed Auto-Generate d Referral 10/11/2022 11/10/2023 1 1 [facility] for referral (narrative)* Diagnostic Procedure Only (Routine) - Pending Review Specialty Diagnoses / Procedures Referred By Contac t Referred To Contact BR IMAGING Diagnoses Axillary mass, right Procedures US BREAST LTD RIGHT US BREAST UNI REAL TIME WITH IMAGE LIMITED Roz Harris APRN.SOCIOLOGY TEACHER [address] [place] [address] [facility] [address] [place] [address] Referral ID Status Reason Start Date Expiration Date Visits Requested Visits Authorized [id number] Pending Review Auto-Generat ed Referral 07/22/2023 08/20/2024 1 1 * Diagnostic Procedure Only (Routine) - Pending Review Specialty Diagnoses / Procedures Referred By Zackaryac t Referred To Contact BR IMAGING Diagnoses Axillary mass, right Procedures [facility] RIGHT DIAGNOSTIC MAMMOGRAPHY COMPUTER-AIDED DETCJ UNI Roz Harris APRN.SOCIOLOGY TEACHER [address] [place] [address] [facility] [address] [place] [address] Referral ID Status Reason Start Date Expiration Date Visits Requested Visits Authorized [id number] Pending Review Auto-Generat ed Referral 07/22/2023 08/20/2024 1 1 [facility] for referral (narrative)* Diagnostic Procedure Only (Routine) - Pending Review Specialty Diagnoses / Procedures Referred By Zackaryac t Referred To Contact BR IMAGING Diagnoses Abnormal mammogram Procedures US BREAST LTD LEFT US BREAST UNI REAL TIME WITH IMAGE LIMITED Roz Harris APRN.SOCIOLOGY TEACHER [address] [place] [address] [facility] [address] [place] [address] Referral ID Status Reason Start Date Expiration Date Visits Requested Visits Authorized [id number] Pending Review Auto-Generat ed Referral 07/30/2023 08/28/2024 1 1 * Diagnostic Procedure Only (Routine) - Pending Review Specialty Diagnoses / Procedures Referred By Neris chi Referred To Contact BR IMAGING Diagnoses Abnormal mammogram Procedures [facility] DIAGNOST[facility] BILATERAL DIAGNOSTIC MAMMOGRAPHY COMPUTER-AIDED DETCJ BI Roz Harris APRN.CNS [address] [place] [address] [facility] [address] [place] [address] Referral ID Status Reason Start Date Expiration Date Visits Requested Visits Authorized [id number] Pending Review Auto-Generat ed Referral 07/30/2023 08/28/2024 1 1 [facility] Summary Purpose Family History No Family History Records FoundThere may be information available, but it has not been provided by the sender.No Family History Records FoundNo Family History Records FoundNo Family History Records Found Advance Directives No Advanced Directives Records FoundDocuments on File Type Date 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 Advance Directive(s) Advance Directive(s) 06/24/2019 10:38 AM Advance Directive(s) 07/14/2018 1:04 PM Chief Complaint Chief Complaint Description Start Date bilateral knee pain Preliminary chief co mplaint data, not yet signed by the author as of Health Concerns Infection Onset Date Last Indicated Resolved Time COVID-19 Rule-Out 10/18/2022 10/18/2022 Infection Onset Date Last Indicated Resolved Time COVID-19 Rule-Out 09/27/2023 09/27/2023 Reason for Referral Specialty Diagnoses / Procedures Referred By Neris chi Referred To Contact Diagnoses Nonintractable epilepsy without status epilepticus, unspecified epilepsy type (HCC) Procedures PROVIDER ORDERED FOLLOW UP OFFICE/OUTPATIENT NEW HIGH MDM [id number] MINUTES Jackson Lomeli PA-C [address] [place] [address] Referral ID Status Reason Start Date Expiration Date Visits Requested Visits Authorized [id number] Authorized PCP Requested Referral 3 03/27/2024 1 1 Additional Source Comments INFORMATION SOURCE (unrecogn ized section and content) DATE CREATED AUTHOR AUTHOR'S ORGANIZ ATION 02/22/2023 [facility] DATE CREATED AUTHOR AUTHOR'S ORGANIZ ATION 09/11/2023 [facility] DATE CREATED AUTHOR AUTHOR'S ORGANIZ ATION 11/05/2023 [facility] Reason for Visit (unrecogniz ed section and content) Reason Onset Date Comments Refill Request 03/29/2022 Reason Comments Opened In Error Reason Comments Refill Request Reason Comments Follow Up Seizures Refill Request Reason Comments right side and breast pain X 3 weeks Reason Comments Sore Throat Cough, congestion x 1 day Reason Comments Cough Cough, congestion, S T and drainage x 4 days Reason Comments Cough Reason Comments Covid19 Concern Reason Comments Vertigo, dizziness x 1 day Reason Comments Follow Up Seizures Dizziness Reason Comments Vaginal Problem discharge and burnin g x 1 week Reason Comments Patient Question Reason Comments Consult colonoscopy Reason Comments Lump lump under R armpit Reason Comments Faxed to [facility] Reason Comments Mass Axillary mass (right ) Reason Comments Follow Up EGD and colonoscopy Reason Comments Sinus Problem Sore Throat Reason Comments Head Congestion ST, sinus congestion , ears clogged, cough, chest congestion x1 day Reason Comments Pre-Op Exam Reason Comments Surgical Clearance Source Comments (unrecognize d section and content) In the event this informatio n is protected by the Federal Confidentiality of Alcohol and Drug Abuse Patient Records regulations: The Federal rules restrict any use of the information to criminally investigate or prosecute any alcohol or drug abuse patient.[facility] event this information is protected by the Federal Confidentiality of Alcohol and Drug Abuse Patient Records regulations: The Federal rules restrict any use of the information to criminally investigate or prosecute any alcohol or drug abuse patient.[facility] the event this information is protected by the Federal Confidentiality of Alcohol and Drug Abuse Patient Records regulations: The Federal rules restrict any use of the information to criminally investigate or prosecute any alcohol or drug abuse patient.[facility] the event this information is protected by the Federal Confidentiality of Alcohol and Drug Abuse Patient Records regulations: The Federal rules restrict any use of the information to criminally investigate or prosecute any alcohol or drug abuse patient.[facility] the event this information is protected by the Federal Confidentiality of Alcohol and Drug Abuse Patient Records regulations: The Federal rules restrict any use of the information to criminally investigate or prosecute any alcohol or drug abuse patient.[facility] the event this information is protected by the Federal Confidentiality of Alcohol and Drug Abuse Patient Records regulations: The Federal rules restrict any use of the information to criminally investigate or prosecute any alcohol or drug abuse patient.[facility] the event this information is protected by the Federal Confidentiality of Alcohol and Drug Abuse Patient Records regulations: The Federal rules restrict any use of the information to criminally investigate or prosecute any alcohol or drug abuse patient.[facility] the event this information is protected by the Federal Confidentiality of Alcohol and Drug Abuse Patient Records regulations: The Federal rules restrict any use of the information to criminally investigate or prosecute any alcohol or drug abuse patient.[facility] the event this information is protected by the Federal Confidentiality of Alcohol and Drug Abuse Patient Records regulations: The Federal rules restrict any use of the information to criminally investigate or prosecute any alcohol or drug abuse patient.[facility] the event this information is protected by the Federal Confidentiality of Alcohol and Drug Abuse Patient Records regulations: The Federal rules restrict any use of the information to criminally investigate or prosecute any alcohol or drug abuse patient.[facility] the event this information is protected by the Federal Confidentiality of Alcohol and Drug Abuse Patient Records regulations: The Federal rules restrict any use of the information to criminally investigate or prosecute any alcohol or drug abuse patient.[facility] the event this information is protected by the Federal Confidentiality of Alcohol and Drug Abuse Patient Records regulations: The Federal rules restrict any use of the information to criminally investigate or prosecute any alcohol or drug abuse patient.[facility] the event this information is protected by the Federal Confidentiality of Alcohol and Drug Abuse Patient Records regulations: The Federal rules restrict any use of the information to criminally investigate or prosecute any alcohol or drug abuse patient.[facility] the event this information is protected by the Federal Confidentiality of Alcohol and Drug Abuse Patient Records regulations: The Federal rules restrict any use of the information to criminally investigate or prosecute any alcohol or drug abuse patient.[facility] the event this information is protected by the Federal Confidentiality of Alcohol and Drug Abuse Patient Records regulations: The Federal rules restrict any use of the information to criminally investigate or prosecute any alcohol or drug abuse patient.[facility] the event this information is protected by the Federal Confidentiality of Alcohol and Drug Abuse Patient Records regulations: The Federal rules restrict any use of the information to criminally investigate or prosecute any alcohol or drug abuse patient.[facility] the event this information is protected by the Federal Confidentiality of Alcohol and Drug Abuse Patient Records regulations: The Federal rules restrict any use of the information to criminally investigate or prosecute any alcohol or drug abuse patient.[facility] the event this information is protected by the Federal Confidentiality of Alcohol and Drug Abuse Patient Records regulations: The Federal rules restrict any use of the information to criminally investigate or prosecute any alcohol or drug abuse patient.[facility] the event this information is protected by the Federal Confidentiality of Alcohol and Drug Abuse Patient Records regulations: The Federal rules restrict any use of the information to criminally investigate or prosecute any alcohol or drug abuse patient.[facility] the event this information is protected by the Federal Confidentiality of Alcohol and Drug Abuse Patient Records regulations: The Federal rules restrict any use of the information to criminally investigate or prosecute any alcohol or drug abuse patient.[facility] the event this information is protected by the Federal Confidentiality of Alcohol and Drug Abuse Patient Records regulations: The Federal rules restrict any use of the information to criminally investigate or prosecute any alcohol or drug abuse patient.[facility] the event this information is protected by the Federal Confidentiality of Alcohol and Drug Abuse Patient Records regulations: The Federal rules restrict any use of the information to criminally investigate or prosecute any alcohol or drug abuse patient.[facility] the event this information is protected by the Federal Confidentiality of Alcohol and Drug Abuse Patient Records regulations: The Federal rules restrict any use of the information to criminally investigate or prosecute any alcohol or drug abuse patient.[facility] the event this information is protected by the Federal Confidentiality of Alcohol and Drug Abuse Patient Records regulations: The Federal rules restrict any use of the information to criminally investigate or prosecute any alcohol or drug abuse patient.[facility] the event this information is protected by the Federal Confidentiality of Alcohol and Drug Abuse Patient Records regulations: The Federal rules restrict any use of the information to criminally investigate or prosecute any alcohol or drug abuse patient.[facility] the event this information is protected by the Federal Confidentiality of Alcohol and Drug Abuse Patient Records regulations: The Federal rules restrict any use of the information to criminally investigate or prosecute any alcohol or drug abuse patient.[facility] the event this information is protected by the Federal Confidentiality of Alcohol and Drug Abuse Patient Records regulations: The Federal rules restrict any use of the information to criminally investigate or prosecute any alcohol or drug abuse patient.[facility] the event this information is protected by the Federal Confidentiality of Alcohol and Drug Abuse Patient Records regulations: The Federal rules restrict any use of the information to criminally investigate or prosecute any alcohol or drug abuse patient.[facility] TownshipIn the event this information is protected by the Federal Confidentiality of Alcohol and Drug Abuse Patient Records regulations: The Federal rules restrict any use of the information to criminally investigate or prosecute any alcohol or drug abuse patient.[facility] TownshipIn the event this information is protected by the Federal Confidentiality of Alcohol and Drug Abuse Patient Records regulations: The Federal rules restrict any use of the information to criminally investigate or prosecute any alcohol or drug abuse patient.[facility] TownshipIn the event this information is protected by the Federal Confidentiality of Alcohol and Drug Abuse Patient Records regulations: The Federal rules restrict any use of the information to criminally investigate or prosecute any alcohol or drug abuse patient.[facility] TownshipIn the event this information is protected by the Federal Confidentiality of Alcohol and Drug Abuse Patient Records regulations: The Federal rules restrict any use of the information to criminally investigate or prosecute any alcohol or drug abuse patient.[facility] TownshipIn the event this information is protected by the Federal Confidentiality of Alcohol and Drug Abuse Patient Records regulations: The Federal rules restrict any use of the information to criminally investigate or prosecute any alcohol or drug abuse patient.[facility] TownshipIn the event this information is protected by the Federal Confidentiality of Alcohol and Drug Abuse Patient Records regulations: The Federal rules restrict any use of the information to criminally investigate or prosecute any alcohol or drug abuse patient.[facility] TownshipIn the event this information is protected by the Federal Confidentiality of Alcohol and Drug Abuse Patient Records regulations: The Federal rules restrict any use of the information to criminally investigate or prosecute any alcohol or drug abuse patient.[facility] TownshipIn the event this information is protected by the Federal Confidentiality of Alcohol and Drug Abuse Patient Records regulations: The Federal rules restrict any use of the information to criminally investigate or prosecute any alcohol or drug abuse patient.[facility] TownshipIn the event this information is protected by the Federal Confidentiality of Alcohol and Drug Abuse Patient Records regulations: The Federal rules restrict any use of the information to criminally investigate or prosecute any alcohol or drug abuse patient.[facility] Care Teams (unrecognized sec tion and content) [employer] Relationship Specialty Start Date End Date Martha Bates MD [address] [place] [id number] PCP - General Internal Medicine 01/23/17 [employer] Reader Relationship Specialty Start Date End Date Martha Bates MD [address] [place] [id number] PCP - General Internal Medicine 01/23/17 [employer] Reader Relationship Specialty Start Date End Date Martha Bates MD [address] [place] [id number] PCP - General Internal Medicine 01/23/17 [employer] Reader Relationship Specialty Start Date End Date Martha Bates MD [address] [place] [id number] PCP - General Internal Medicine 01/23/17 [employer] Reader Relationship Specialty Start Date End Date Martha Bates MD [address] [place] [address] PCP - General Internal Medicine 01/23/17 [employer] Reader Relationship Specialty Start Date End Date Martha Bates MD [address] [place] [address] PCP - General Internal Medicine 01/23/17 [employer] Reader Relationship Specialty Start Date End Date Martha Bates MD [employer] [facility] [place] [address] PCP - General Internal Medicine 01/23/17 [employer] Reader Relationship Specialty Start Date End Date Martha Bates MD [address] [place] [address], [place] [address] PCP - General Internal Medicine 01/23/17 [employer] Reader Relationship Specialty Start Date End Date Martha Bates MD [address] [place] [address], [place] [address] PCP - General Internal Medicine 01/23/17 [employer] Reader Relationship Specialty Start Date End Date Martha Bates MD [address] [place] [address], [place] [address] PCP - General Internal Medicine 01/23/17 [employer] Relationship Specialty Start Date End Date Martha Bates MD [address] [place] [address], [place] [address] PCP - General Internal Medicine 01/23/17 [employer] Reader Relationship Specialty Start Date End Date Martha Bates MD [address] [place] [address], [place] [address] PCP - General Internal Medicine 01/23/17 [employer] Reader Relationship Specialty Start Date End Date Martha Bates MD [address] [place] [address], [place] [address] PCP - General Internal Medicine 01/23/17 [employer] Reader Relationship Specialty Start Date End Date Martha Bates MD [address] [place] [address], [place] [address] PCP - General Internal Medicine 01/23/17 [employer] Reader Relationship Specialty Start Date End Date Martha Bates MD [address] [facility] [place] [address] PCP - General Internal Medicine 01/23/17 [employer] Reader Relationship Specialty Start Date End Date Martha Bates MD [address] [facility] [place] [address] PCP - General Internal Medicine 01/23/17 [employer] Reader Relationship Specialty Start Date End Date Martha Bates MD [address] [place] [address] PCP - General Internal Medicine 01/23/17 [employer] Reader Relationship Specialty Start Date End Date Martha Bates MD [address] [place] [address] PCP - General Internal Medicine 01/23/17 [employer] Reader Relationship Specialty Start Date End Date Martha Bates MD [address] [place] [address] PCP - General Internal Medicine 01/23/17 [employer] Reader Relationship Specialty Start Date End Date Martha Bates MD [address] [place] [address] PCP - General Internal Medicine 01/23/17 [employer] Reader Relationship Specialty Start Date End Date Martha Bates MD [address] [place] [address] PCP - General Internal Medicine 01/23/17 [employer] Reader Relationship Specialty Start Date End Date Martha Bates MD [address] [place] [address] PCP - General Internal Medicine 01/23/17 [employer] Reader Relationship Specialty Start Date End Date Martha Bates MD [address] [facility] [place] [address] PCP - General Internal Medicine 01/23/17 [employer] Reader Relationship Specialty Start Date End Date Martha Bates MD [address] [facility] [place] [address] PCP - General Internal Medicine 01/23/17 [employer] Reader Relationship Specialty Start Date End Date Martha Bates MD [address] [facility] [place] [address] PCP - General Internal Medicine 01/23/17 [employer] Reader Relationship Specialty Start Date End Date Martha Bates MD [address] [facility] [place] [address] PCP - General Internal Medicine 01/23/17 [employer] Reader Relationship Specialty Start Date End Date Martha Bates MD [address] [facility] [place] [address] PCP - General Internal Medicine 01/23/17 [employer] Reader Relationship Specialty Start Date End Date Martha Bates MD [address] [facility] [place] [address] PCP - General Internal Medicine 01/23/17 [employer] Reader Relationship Specialty Start Date End Date Martha Bates MD [address] [facility] [place] [address] PCP - General Internal Medicine 01/23/17 FOR RECORDS PERTAINING TO PATIENTS WHO ARE OR HAVE BEEN ENROLLED IN A CHEMICAL DEPENDENCY/SUBSTANCEABUSE PROGRAM, SOME INFORMATION MAY BE OMITTED. This clinical summary was aggregated from multiple sources. Caution should be exercised in using it in the provision of clinical care. This summary normalizes information from multiple sources, and as a consequence, information in this document may materially change the coding, format and clinical context of patient data. In addition, data may be omitted in some cases. CLINICAL DECISIONS SHOULD BE BASED ON THE PRIMARY CLINICAL RECORDS. [email or web address] [facility]. provides no warranty or guarantee of the accuracy or completeness of information in this document.
--- NOTE | 2023-12-07 21:25 | RAD_ITS ---
STUDY: X-RAY CHEST REASON FOR EXAM: Female, 53 years old. cough TECHNIQUE: PA and lateral views of the chest. COMPARISON: None. FINDINGS: The lungs are clear and expanded. There is no demonstrated pleural abnormality. Normal size heart. Normal mediastinum and amita. Normal visualized pulmonary arteries. Normal visualized aortic arch and descending thoracic aorta. Normal visualized thoracic spine. Normal visualized ribs, clavicles, and shoulders. There is no demonstrated abnormality of the visualized soft tissue structures of the upper abdomen. RAD/Chest PA and Lateral IMPRESSION: No acute cardiopulmonary process. Electronically Signed: Ryan Caballero MD ([place]) at 21:37 EST ,
[2023-12-07 22:07] VITALS: PULSE 100; RESP 22; TEMP 37.3; O2SAT 94
[2023-12-07] MEDS: predniSONE 20 MG Tablet 60 MG PO (22:09)
[2023-12-07] MEDS: Ondansetron ODT 4 MG Tablet PO (22:09)
== END 2023-12-07 22:11 | disposition home or self-care (01) ==
PROVIDERS: Emergency Provider Emergency Medicine; PCP Internal Medicine; Visit Provider Emergency Medicine
DX: U07.1 COVID-19 (principal); G40.909 Epilepsy, unspecified, not intractable, without status epilepticus
CPT/HCPCS: 71046; 87631; 94640; 99283

== ENCOUNTER → 2024-04-10 | Outpatient (CLI) | payer BC, SELFPAY ==
--- NOTE | 2024-04-10 07:23 | BI_ITS ---
MAMMOGRAPHY - BILATERAL SCREENING REASON FOR EXAM: Female, 53 years old. Routine annual screening examination. PERTINENT HISTORY: Grandmother with breast cancer. TECHNIQUE: Digital bilateral breast eduard (3D mammographic acquisition) in the CC and MLO projections. 2-D mediolateral oblique (MLO) and craniocaudad (CC) views of both breasts were obtained. CAD: Full Field Digital Mammography with Computer Added Detection was performed. COMPARISON: Comparison is made with prior outside examination dated January 10, 2023 and August 01, 2023. FINDINGS: Breast Composition: The breasts are extremely dense, which lowers the sensitivity of mammography. There are no dominant masses or suspicious calcifications. Stable small benign-appearing bilateral axillary lymph nodes. No other significant abnormalities are identified. There has been no significant change since the prior study. BI/SCRN MAMM (CAD)W/EDUARD BILAT IMPRESSION: Stable bilateral screening mammogram. Yearly follow-up mammogram recommended. (A) ASSESSMENT CATEGORY: BIRADS Category 2: Benign. A letter regarding these results will be sent to the patient by the facility within 30 days. Approximately 10% of breast cancers are not detected by mammography. A normal mammogram should not delay biopsy of a clinically suspicious abnormality. [id number] Electronically Signed: Henry Gottlieb MD at 8:46 EDT ,
== END | disposition home or self-care (01) ==
LOC: OPBI 07:22
PROVIDERS: PCP Internal Medicine; Referring Provider Obstetrics & Gynecology; Visit Provider Obstetrics & Gynecology
DX: Z12.31 Encounter for screening mammogram for malignant neoplasm of breast (principal); Z80.3 Family history of malignant neoplasm of breast
CPT/HCPCS: 77063; 77067

== ENCOUNTER 2024-07-11 13:56 | Emergency (ER) | payer OTHER, BC, SELFPAY ==
[2024-07-11 13:57] VITALS: BP 152/76; PULSE 81; RESP 16; TEMP 36.6; O2SAT 98; BMI 26.3
[2024-07-11 14:08] VITALS: O2SAT 98
--- NOTE | 2024-07-11 14:27 | EX.ED.GENINJ ---
HPI History of Present Illness Chief Complaint: Head Injury Detail of Chief Complaint: Blunt head trauma yesterday at work concerned she has a concussion Informant: patient Onset/Context/Timing Onset: Yesterday Mechanism/Context: Blunt Injury Quality of Pain: Aching Location: Forehead Current Severity: Mild Maximum Severity: Moderate Worsened by: Using computer Relieved by: Nothing specific Associated Symptoms Associated Symptoms: Negative for Loss of function, Inability to ambulate, Loss of consciousness or Amnesia Narrative Narrative: Patient is a 53-year-old woman. She has had 5 concussions between 2013 and 2016. She has had several concussions since 2016. She did see the renowned concussion specialist at [facility] in the past. She followed with him for 2 years. Patient was not totally compliant with his care i.e. she declined the antidepressant he wanted to prescribe. She does complain of headache. She had trouble getting sleep last evening. She is having trouble looking at computer screen. She states her vision seems blurry. At times she gets anxious. She denies vomiting. She denies paresthesia, anesthesia medics. Denies problems with coordination or balance. Prior similar symptoms: Yes Recent [facility] Medical History History of concussion Wears hearing aid Wears contact lenses Post-menopausal Open wound Arthritis Low iron Back pain Injury of head and neck History of hiatal hernia Gastric reflux Non-smoker Hoarseness History of pain when walking History of edema History of echocardiogram Bronchitis Asthma Seizure disorder Home Medications ?Medication ?Instructions ?Recorded ?Last Taken ?Type carbamazepine 200 mg tablet 300 mg PO BIDCM 06/22/16 Unknown History cetirizine 10 mg tablet 10 mg PO DAILY 06/22/16 11/04/23 History cholecalciferol (vitamin D3) 25 2,000 unit PO DAILY 06/22/16 11/04/23 History mcg (1,000 unit) tablet mometasone-formoterol HFA 200 2 inh inhalation BID 06/22/16 Unknown History mcg-5 mcg/actuation aerosol inhaler zonisamide 100 mg capsule 100 mg PO QHS 01/12/18 11/04/23 History zonisamide 50 mg capsule 50 mg PO DAILY 01/12/18 Unknown History montelukast 10 mg tablet 10 mg PO QHS 12/17/21 11/04/23 History (Singulair) albuterol 90 mcg/actuation aerosol 90 mcg inhalation PRN PRN SOB 11/01/23 Unknown History inhaler ciprofloxacin HCl 750 mg tablet 750 mg PO BID 11/01/23 Unknown History epinephrine 0.3 mg/0.3 mL 0.3 mg subcut PRN PRN 11/01/23 Unknown History injection, auto-injector hypersensitivity reaction pantoprazole 40 mg tablet,delayed 40 mg PO PRN PRN GERD 11/01/23 Unknown History release ascorbic acid (vitamin C) 1,000 mg 1 g PO DAILY 90 days #90 tabs 11/05/23 Unknown Rx tablet (Vitamin C) calcium carbonate 500 mg-vitamin 1 tab PO DAILY 90 days #90 tabs 11/05/23 Unknown Rx D3 15 mcg (600 unit) tablet (Os-Toni 500 + D3) docusate sodium 100 mg capsule 100 mg PO DAILY 10 days #10 caps 11/05/23 Unknown Rx (Colace) ibuprofen 800 mg tablet 800 mg PO Q8H 10 days #30 tabs 11/05/23 Unknown Rx ondansetron 4 mg disintegrating 4 mg PO Q8H 7 days #21 tabs 11/05/23 Unknown Rx tablet oxycodone-acetaminophen 5 mg-325 1 tab PO Q6H PRN pain 7 days #28 11/05/23 Unknown Rx mg tablet (Endocet) tabs ipratropium 0.5 mg-albuterol 3 mg 3 ml inhalation Q6H PRN shortness 12/07/23 Unknown Rx (2.5 mg base)/3 mL nebulization of breath or wheezing #90 mL soln ondansetron 4 mg disintegrating 4 mg PO Q8H PRN PRN Nausea #15 tabs 12/07/23 Unknown Rx tablet prednisone 20 mg tablet 40 mg (2 x 20 mg) PO DAILY #14 tabs 12/07/23 Unknown Rx Allergy/AdvReac Type Severity Reaction Status Date / Time amoxicillin Allergy Hives Verified 07/11/24 14:13 oxcarbazepine (From Allergy Other Verified 07/11/24 14:13 Trileptal) shellfish derived Allergy Anaphylaxis Verified 07/11/24 14:13 latex AdvReac Rash Verified 07/11/24 14:13 Family History Other Cancer Hypertension Rheumatoid arthritis Surgical History Hx of colonoscopy Hx of right knee surgery Hx of left knee surgery history of left biceps vein surgery History of sinus surgery Social History Smoking Status: Never smoker ROS ROS ED Constitutional Constitutional ED: Denies chills, fever(s) or subjective Eyes Eyes: Reports blurry vision bilateral ENT ENT ED: Denies ear pain, rhinorrhea or sore throat Cardiovascular Cardiovascular: Denies chest pain or palpitations Respiratory/Chest Respiratory/Chest: Denies cough, dyspnea or dyspnea on exertion Gastrointestinal Gastrointestinal: Reports nausea; Denies diarrhea or vomiting Musculoskeletal Musculoskeletal: Denies back pain or neck pain Integumentary Denies rash Neurologic Neurologic: Reports headache(s); Denies paresthesias or weakness Psychiatric Psychiatric: Reports anxiety Hematologic/Lymphatic Hematologic/Lymphatic: Denies easy bleeding or easy bruising EXAM Physical Exam Const Vital Signs: 07/11/24 13:57 07/11/24 14:08 Temperature 97.8 F Temperature Source Temporal Pulse Rate 81 Respiratory Rate 16 Respiratory Effort Normal Respiratory Depth Normal Respiratory Pattern Normal Blood Pressure 152/76 H Blood Pressure Mean 101 Pulse Ox 98 98 Oxygen Delivery Method Room Air Room Air Positive well nourished and well developed General Appearance ED: well developed and NAD HEENT Reports TM's clear HEENT Narrative: No clinical findings of basilar skull fracture. No obvious trauma to the forehead or scalp tenderness Nose: Negative for septum abnormal Tympanic Membrane ED: Yes TM's clear Eyes PERRL and EOMs intact bilaterally General Eye ED: Yes other Other Details: No subconjunctival hemorrhage. Neck full ROM Resp normal respiratory effort Cardio regular rhythm Rate: regular rate GI normal to inspection, nondistended, normoactive bowel sounds and non-tender Extremity normal to inspection and full ROM Neuro oriented x3, CN's II-XII intact bilaterally, moves all extremities, no focal motor deficits, no sensory deficits noted and gait normal Neuro Narrative: There is no dysmetria. Romberg with eyes open and close normal. Tandem gait is normal. [place] Coma Scale: document GCS findings Spontaneous Obeys Commands Oriented 15 Sensorium / Orientation: alert Deep Tendon Reflexes: Rt Triceps (C7): 2+, Lt Triceps (C7): 2+, Rt Biceps (C5, C6): 2+, Lt Biceps (C5, C6): 2+, Rt Brachioradialis (C6): 2+, Lt Brachioradialis (C6): 2+, Rt Patellar (L4): 2+, Lt Patellar (L4): 2+, Rt Ankle (S1): 2+ and Lt Ankle (S1): 2+ Deep Tendon Reflexes Back: Rt Patellar (L4): 2+, Lt Patellar (L4): 2+, Rt Ankle (S1): 2+ and Lt Ankle (S1): 2+ Plantar Reflex: Downgoing: bilateral Psych mental status grossly normal and thought process normal Skin no rashes or lesions noted, no wounds, skin turgor normal and no jaundice Skin Narrative: Bruise noted medial aspect of left elbow. MDM MDM MDM Narrative Medical decision making narrative: Patient was informed she has a concussion. There is no medical test to determine if someone has a concussion or not. 1 obtain the CAT scan if there is concern for intracranial bleed that would require intervention. Patient was told based on the [place] CT head rule and the [place] rule imaging is not warranted. She was told no strenuous activity until she is symptom-free and avoid activities that make her symptoms worse. Discharge Plan Triage Chief Complaint: Head Injury ED Provider: Raúl Pimentel Dx/Rx/DC Orders Clinical Impression: Concussion without loss of consciousness, initial encounter Instructions: ED Concussion Prescriptions: No Action cetirizine 10 MG tablet 10 mg PO DAILY carbamazepine 200 MG tablet 300 mg PO BIDCM cholecalciferol (vitamin D3) 1,000 UNIT tablet 2,000 unit PO DAILY mometasone-formoterol 8.8 GM HFA aerosol inhaler 2 inh inhalation BID zonisamide 100 MG capsule 100 mg PO QHS zonisamide 50 MG capsule 50 mg PO DAILY montelukast [Singulair] 10 mg Tablet 10 mg PO QHS ciprofloxacin HCl 750 mg tablet 750 mg PO BID albuterol 90 mcg/actuation aerosol 90 mcg inhalation PRN PRN (Reason: SOB) pantoprazole 40 mg tablet,delayed release (DR/EC) 40 mg PO PRN PRN (Reason: GERD) epinephrine 0.3 mg/0.3 mL auto-injector 0.3 mg subcut PRN PRN (Reason: hypersensitivity reaction) Patient Comments: INJECT 0.3ML INTRAMUSCULARLY ONE TIME. MAY REPEAT ONE TIME. oxycodone-acetaminophen [Endocet] 5-325 mg tablet 1 tab PO Q6H PRN (Reason: pain) 7 Days Qty: 28 0RF ibuprofen 800 mg tablet 800 mg PO Q8H 10 Days Qty: 30 0RF ondansetron 4 mg tablet,disintegrating 4 mg PO Q8H 7 Days Qty: 21 0RF docusate sodium [Colace] 100 mg capsule 100 mg PO DAILY 10 Days Qty: 10 0RF ascorbic acid (vitamin C) [Vitamin C] 1,000 mg tablet 1 g PO DAILY 90 Days Qty: 90 0RF calcium carbonate-vitamin D3 [Os-Toni 500 + D3] 500 mg-15 mcg (600 unit) tablet 1 tab PO DAILY 90 Days Qty: 90 0RF ipratropium-albuterol 0.5 mg-3 mg(2.5 mg base)/3 mL solution for nebulization 3 ml inhalation Q6H PRN (Reason: shortness of breath or wheezing) Qty: 90 0RF prednisone 20 mg tablet 40 mg PO DAILY Qty: 14 0RF ondansetron 4 mg tablet,disintegrating 4 mg PO Q8H PRN PRN (Reason: Nausea) Qty: 15 0RF Stand Alone Forms: Work Status Form Primary Care Provider: Anupama Bates Referrals: Anupama Bates MD [Primary Care Provider] - As Needed Activity Restrictions/Additional Instructions: 1. Until you are symptom-free with no strenuous activity. 2. Avoid activities that make your symptoms worse. Since presently you are having trouble looking at a computer screen/monitor you should not do any work that involves you looking at a monitor or computer screen since this will make your symptoms worse and prolong your healing process. Print Language: Citizen [place] Disposition Disposition: Home, Self Care
[2024-07-11 14:56] VITALS: BP 142/66; PULSE 64; RESP 18; TEMP 36.4; O2SAT 99
== END 2024-07-11 15:08 | disposition home or self-care (01) ==
PROVIDERS: Emergency Provider Emergency Medicine; PCP Internal Medicine; Visit Provider Emergency Medicine
DX: S06.0X0A Concussion without loss of consciousness, initial encounter (principal); Y99.0 Civilian activity done for income or pay; J45.909 Unspecified asthma, uncomplicated; K21.9 Gastro-esophageal reflux disease without esophagitis; F41.9 Anxiety disorder, unspecified; X58.XXXA Exposure to other specified factors, initial encounter
CPT/HCPCS: 99282

== ENCOUNTER → 2024-07-21 | Outpatient (CLI) | payer BC, SELFPAY | END | disposition home or self-care (01) | LOC: LABSPEC 16:22 | PROVIDERS: PCP Internal Medicine; Referring Provider Otolaryngology; Visit Provider Otolaryngology | DX: R07.0 Pain in throat (principal) | CPT/HCPCS: 87070; 87077; 87186 ==